=== PATIENT | female | born 1945 | race Caucasian/White ===

== ENCOUNTER 2018-01-19 00:31 | Emergency (ER) | payer OTHER, MEDICARE ==
[2018-01-19 01:01] VITALS: BP 110/56; PULSE 58; TEMP 98.3; BMI 31.4
[2018-01-19] MEDS ORDERED: FAMOTIDINE 20 MG/50 ML IVPB 20 MG/50 ML MG IVPB ONE ×2 (01:18→02:31)
[2018-01-19 01:45] LABS: URINE APPEARANCE CLEAR; URINE BILIRUBIN NEGATIVE (<2.0 mg/dL); URINE COLOR STRAW; URINE GLUCOSE (UA) NEGATIVE (NEGATIVE); URINE KETONE NEGATIVE (NEGATIVE); URINE LEUK ESTERASE NEGATIVE (NEGATIVE); URINE NITRITE NEGATIVE (NEGATIVE); URINE PROTEIN NEGATIVE (NEGATIVE); URINE UROBILINOGEN NEGATIVE mg/dL (0.2-1.0)
--- NOTE | 2018-01-19 02:16 | PDOC ---
History of Present Illness <Ayanna Fernández - Last Filed: 01/19/18 02:25> - History of Present Illness Initial Comments: 01/19/18 02:14 The patient is a 72 year old female with history of pancreatitis, DM, breast CA s/p mastectomy with mets to the lungs (treated in the past with chemo/radiation , now in remission), who presents to the ED complaining of left upper quadrant pain that began tonight. The patient describes her abdominal pain as radiating across the top of her abdomen and waxing and waning in nature. She is unsure whether it feels like her previous episode of pancreatitis. Denies alleviating or exacerbating factors. Denies nausea, vomiting, or diarrhea. Denies fever or chills. Denies chest pain or shortness of breath. <Hi Shay - Last Filed: 01/19/18 04:02> - General Chief Complaint: Pain Stated Complaint: ABD PAIN Time Seen by Provider: 01/19/18 01:07 Past History <Ayanna Fernández - Last Filed: 01/19/18 02:25> - Past Medical History Cancer: Yes (BREAST AND LUNG DX 2001) COPD: No - Immunization History Immunization Up to Date: No - Suicide/Smoking/Psychosocial Hx Smoking History: Never smoked Have you smoked in the past 12 months: No Hx Alcohol Use: No Drug/Substance Use Hx: No Substance Use Type: None Hx Substance Use Treatment: No <Hi Shay - Last Filed: 01/19/18 04:02> - Past Medical History Allergies/Adverse Reactions: Allergies Allergy/AdvReac Type Severity Reaction Status Date / Time No Known Allergies Allergy Verified 01/19/18 00:59 Home Medications: Ambulatory Orders NK [No Known Home Medication] 01/19/18 Review of Systems - Review of Systems Comments:: 01/19/18 02:14 "GENERAL/CONSTITUTIONAL: No fever or chills. No weakness. HEAD, EYES, EARS, NOSE AND THROAT: No change in vision. No ear pain or discharge. No sore throat. CARDIOVASCULAR: No chest pain or shortness of breath. RESPIRATORY: No cough, wheezing, or hemoptysis. GASTROINTESTINAL: +Upper abdominal pain. No nausea, vomiting, diarrhea or constipation. GENITOURINARY: No dysuria, frequency, or change in urination. MUSCULOSKELETAL: No joint or muscle swelling or pain. No neck or back pain. SKIN: No rash NEUROLOGIC: No headache, vertigo, loss of consciousness, or change in strength/ sensation. ENDOCRINE: No increased thirst. No abnormal weight change. HEMATOLOGIC/LYMPHATIC: No anemia, easy bleeding, or history of blood clots. ALLERGIC/IMMUNOLOGIC: No hives or skin allergy. " <Hi Shay - Last Filed: 01/19/18 04:02> *Physical Exam - Vital Signs Last Vital Signs Temp Pulse Resp BP Pulse Ox 98.3 F 58 L 18 110/56 97 01/19/18 00:57 01/19/18 00:57 01/19/18 00:57 01/19/18 00:57 01/19/18 00:57 <Ayanna Fernández - Last Filed: 01/19/18 02:25> - Vital Signs Last Vital Signs Temp Pulse Resp BP Pulse Ox 98.3 F 58 L 18 110/56 97 01/19/18 00:57 01/19/18 00:57 01/19/18 00:57 01/19/18 00:57 01/19/18 00:57 - Physical Exam Comments: 01/19/18 02:14 "GENERAL: Awake, alert, and fully oriented, in no acute distress. HEAD: No signs of trauma EYES: PERRLA, EOMI, sclera anicteric, conjunctiva clear ENT: Auricles normal inspection, hearing grossly normal, nares patent, oropharynx clear without exudates. Moist mucosa NECK: Nontender, no stepoffs, Normal ROM, supple, no lymphadenopathy, JVD, or masses LUNGS: Breath sounds equal, clear to auscultation bilaterally. No wheezes, and no crackles HEART: Regular rate and rhythm, normal S1 and S2, no murmurs, rubs or gallops ABDOMEN: +Epigastric and LUQ ttp. Soft, normoactive bowel sounds. No guarding, no rebound. No masses EXTREMITIES: Normal range of motion, no edema. No clubbing or cyanosis. No cords, erythema, or tenderness NEUROLOGICAL: Cranial nerves II through XII intact. 5/5 strength and sensation in all extremities, Normal speech, normal gait, normal cerebellar function SKIN: Warm, Dry, normal turgor, no rashes or lesions noted. " <Hi Shay - Last Filed: 01/19/18 04:02> Heart Score/ECG Review - History History: Slightly suspicious - Electrocardiogram EKG: Non specific repolarization disturbance - Age Age: >/= 65 - Risk Factors Based on the list above the patient has:: No risk factors known - Troponin Troponin: </= normal limit - Score Heart Score - Total: 3 - ECG Impressions Comment:: 01/19/18 02:15 NSR, no ANGELIKA/STDs, TWI in V2-V3, axis wnl, intervals wnl, rate 57 <OuHi - Last Filed: 01/19/18 04:02> ED Treatment Course - LABORATORY CBC & Chemistry Diagram: 01/19/18 02:06 01/19/18 02:06 - ADDITIONAL ORDERS Additional order review: Laboratory Results 01/19/18 01:38 Urine Color Straw Urine Appearance Clear Urine pH 5.0 Ur Specific [place] 1.009 Urine Protein Negative Urine Glucose (UA) Negative Urine Ketones Negative Urine Blood Negative Urine Nitrite Negative Urine Bilirubin Negative Urine Urobilinogen Negative Ur Leukocyte Esterase Negative 01/19/18 02:06 RBC 4.32 MCV 86.7 MCHC 33.3 RDW 14.6 MPV 9.0 Neutrophils % 72.3 D Lymphocytes % 22.2 D Monocytes % 4.4 Eosinophils % 0.7 Basophils % 0.4 <Ayanna Fernández - Last Filed: 01/19/18 02:25> - LABORATORY CBC & Chemistry Diagram: 01/19/18 02:06 01/19/18 02:06 - ADDITIONAL ORDERS Additional order review: Laboratory Results 01/19/18 01:38 Urine Color Straw Urine Appearance Clear Urine pH 5.0 Ur Specific [place] 1.009 Urine Protein Negative Urine Glucose (UA) Negative Urine Ketones Negative Urine Blood Negative Urine Nitrite Negative Urine Bilirubin Negative Urine Urobilinogen Negative Ur Leukocyte Esterase Negative - RADIOLOGY Radiology Studies Ordered: Category Date Time Status ABDOMEN US -LIMITED [US] Stat Ultrasound 01/19/18 01:18 Taken <OuHi - Last Filed: 01/19/18 04:02> Medical Decision Making - Medical Decision Making 01/19/18 02:25 EXAM: ULTRASOUND ABDOMEN INCOMPLETE Preliminary interpretation by Imaging Machine Fastener Small mobile gallstone and thickened gallbladder wall, 6 mm. No reported sonographic Silverio's sign and no pericholecystic fluid to suggest acute cholecystitis. Top normal gallbladder lumen size. Unremarkable liver, right kidney and visualized aorta and pancreas. Normal common duct diameter, 5 mm. Exam limited by body habitus. <Ayanna Fernández - Last Filed: 01/19/18 02:25> - Medical Decision Making 01/19/18 02:15 72 F with epigastric pain. Concerning for pancreatitis given prior h/o pancreatitis. Will also evaluate for gallbladder pathology as pt had imaging equivocal for cholecystitis on last admission. - Labs - RUQ sono 01/19/18 03:57 Labs wnl RUQ sono prelim read with small gallstone and gallbladder wall thickening. However, negative sonographic silverio's. Negative for acute cholecystitis. Pt also had negative silverio's on my exam. Unlikely to have biliary colic. Pt reassessed after pepcid, now reports complete resolution of her pain. Abdomen benign at this time. Pt is well appearing, with normal vitals. Clinically stable for DC at this time. I discussed the physical exam findings, ancillary test results and final diagnoses with the patient. I answered all of the patient's questions. The patient was satisfied with the care received and felt comfortable with the discharge plan and treatment plan. The patient agrees to follow up with the primary care physician within 24-72 hours. <Hi Shay - Last Filed: 01/19/18 04:02> *DC/Admit/Observation/Transfer - Attestations Scribe Attestion: 01/19/18 02:25 Documentation prepared by Ayanna Fernández, acting as medical observer for Hi Shay MD. <Ayanna Fernández - Last Filed: 01/19/18 02:25> - Attestations Physician Attestion: 01/19/18 04:02 I, Dr. Hi Shay MD, attest that this document has been prepared under my direction and personally reviewed by me in its entirety. I further attest, that it accurately reflects all work, treatment, procedures and medical decision -making performed by me. <Hi Shay - Last Filed: 01/19/18 04:02> Diagnosis at time of Disposition: Abdominal pain - Discharge Dispostion Disposition: HOME - Referrals Referrals: Fan Blum MD [Staff Physician] - - Patient Instructions Printed Discharge Instructions: DI for Gastritis Additional Instructions: Take nexium once daily as prescribed to treat your gastritis. If you experience worsening pain, vomiting, fevers, or any other concerning symptoms, return to the ER immediately. Otherwise, follow up with a trademark paralegal as soon as possible. You may need an endoscopy to further evaluate your abdominal pain.
[2018-01-19 02:18] LABS: BASO % 0.4 % (0-2.0); EOS % 0.7 % (0-4.5); HEMATOCRIT 37.4 % (32.4-45.2); HEMOGLOBIN 12.4 GM/dL (10.7-15.3); LYMPH % 22.2 % (8-40); MCH 28.8 pg (25.7-33.7); MCHC 33.3 g/dl (32.0-36.0); MEAN CELL VOLUME 86.7 fl (80-96); MONO % 4.4 % (3.8-10.2); NEUT % 72.3 % (42.8-82.8); PLATELET COUNT 250 K/MM3 (134-434); RBC 4.32 M/mm3 (3.60-5.2); RDW 14.6 % (11.6-15.6); WHITE BLOOD COUNT 8.8 K/mm3 (4.0-10.0)
[2018-01-19 02:40] LABS: INR 1.02 (0.82-1.09); PROTHROMBIN TIME (PATIENT) 11.5 SEC (9.7-13.0)
[2018-01-19 02:45] LABS: ALBUMIN 3.8 g/dl (3.4-5.0); ANION GAP 6 (8-16); BILIRUBIN,TOTAL 0.4 mg/dL (0.2-1.0); BLOOD UREA NITROGEN 11 mg/dL (7-18); CHLORIDE 101 mmol/L (98-107); CO2 30 mmol/L (21-32); CREATININE 0.6 mg/dL (0.55-1.02); GLUCOSE,RANDOM 112 mg/dL (74-106); LIPASE 135 U/L (73-393); POTASSIUM 4.4 mmol/L (3.5-5.1); SGOT/AST 25 U/L (15-37); SGPT/ALT 36 U/L (12-78); SODIUM 137 mmol/L (136-145); TOT PROT 7.5 g/dl (6.4-8.2)
[2018-01-19 02:46] LABS: ALK PHOS 76 U/L (45-117)
--- NOTE | 2018-01-19 13:26 | EKG ---
Test Reason : Blood Pressure : / mmHG Vent. Rate : 057 BPM Atrial Rate : 057 BPM P-R Int : 192 ms QRS Dur : 086 ms QT Int : 418 ms P-R-T Axes : 015 007 006 degrees QTc Int : 406 ms SINUS BRADYCARDIA MODERATE VOLTAGE CRITERIA FOR LVH, MAY BE NORMAL VARIANT BORDERLINE ECG WHEN COMPARED WITH ECG OF 21-NOV-2015 07:27, NO SIGNIFICANT CHANGE WAS FOUND Confirmed by MICHELLE DONG, LEANDRA ([id number]) on 01/19/2018 1:26:26 PM Referred By: Confirmed By:LEANDRA MARTINEZ MD
== END 2018-01-19 04:25 | disposition home or self-care (01) ==
LOC: JER 00:31
PROC: 3E033GC Introduction of Other Therapeutic Substance into Peripheral Vein, Percutaneous Approach (ICD-10-PCS; principal; 2018-01-19)
DX: K29.70 Gastritis, unspecified, without bleeding (principal); K80.20 Calculus of gallbladder without cholecystitis without obstruction; E11.9 Type 2 diabetes mellitus without complications; Z85.3 Personal history of malignant neoplasm of breast; Z85.118 Personal history of other malignant neoplasm of bronchus and lung; Z90.10 Acquired absence of unspecified breast and nipple
CPT/HCPCS: 36415; 76705-TC; 80053; 81003; 82550; 83690; 84484; 85025; 85610; 85730; 87086; 93005; 93010; 99281-25

== ENCOUNTER 2018-01-26 23:33 | Inpatient (IN) | payer OTHER, MEDICARE ==
[2018-01-27] MEDS ORDERED: morphine CARPU-JECT 2 MG/1 ML DISP.SYRIN IVPUSH ONE (00:47)
[2018-01-27] MEDS ORDERED: morphine CARPU-JECT 4 MG/1 ML DISP.SYRIN IVPUSH ONE ×2 (01:10→02:20)
[2018-01-27] MEDS ORDERED: FAMOTIDINE 20 MG/50 ML IVPB 20 MG/50 ML MG IVPB ONE ×2 (01:21→01:39)
[2018-01-27] MEDS ORDERED: SODIUM CHLORIDE 1,000 ML IV STA (01:21)
--- NOTE | 2018-01-27 01:25 | PDOC ---
Attending Attestation - Resident Resident Name: Shawn Bolivar - ED Attending Attestation I have performed the following: I have examined & evaluated the patient, The case was reviewed & discussed with the resident, I agree w/resident's findings & plan, Exceptions are as noted - HPI HPI: 01/27/18 01:23 72-year-old female patient with past medical history of breast cancer status post chemotherapy currently in remission with a right-sided chest port presents with recurrent upper abdominal pain starting several hours ago. Patient states that she is doing nothing particular when the pain was persistent particular right upper quadrant. Reported nausea vomiting but denies fevers. Decreased appetite. Denies diarrhea. Is unsure if she has a history of gallstones. - Physicial Exam PE: 01/27/18 01:24 GENERAL: Awake, alert, and fully oriented, uncomfortable appearing HEAD: No signs of trauma EYES: EOMI, sclera anicteric, conjunctiva clear ENT: Auricles normal inspection, hearing grossly normal, nares patent HEART: Regular rate and rhythm, normal S1 and S2, no murmurs, rubs or gallops ABDOMEN: Soft, edward sign positive. TTP epigastric, RUQ. EXTREMITIES: Normal range of motion, no edema. No clubbing or cyanosis. No cords, erythema, or tenderness NEUROLOGICAL: Cranial nerves II through XII grossly intact. Normal speech SKIN: Warm, Dry, normal turgor, no rashes or lesions noted. - Medical Decision Making 01/27/18 01:25 Vital Signs Temp Pulse Resp BP Pulse Ox 98.8 F 92 H 20 138/79 99 01/27/18 00:22 01/27/18 00:22 01/27/18 00:22 01/27/18 00:22 01/27/18 00:22 72 year old female patient with history of breast cancer presents with upper abdominal pain. Differential includes acute cholecystitis, biliary colic, pancreatitis versus gastritis. We'll obtain labs, ultrasound of the right upper quadrant, pain control. Dispo per examinations. 01/27/18 03:32 Ultrasound reviewed. Cholelithiasis. Gallbladder wall thickened at 7 mm. Positive edward sign. Acute cholecystitis. CBC, BMP 01/27/18 01:22 01/27/18 01:22 CMP Sodium 140 mmol/L (136-145) 01/27/18 01:22 Potassium 3.9 mmol/L (3.5-5.1) 01/27/18 01:22 Chloride 104 mmol/L (98-107) 01/27/18 01:22 Carbon Dioxide 29 mmol/L (21-32) 01/27/18 01:22 Anion Gap 7 (8-16) L 01/27/18 01:22 BUN 19 mg/dL (7-18) H 01/27/18 01:22 Creatinine 0.9 mg/dL (0.55-1.02) 01/27/18 01:22 Creat Clearance w eGFR > 60 (>60) 01/27/18 01:22 Random Glucose 148 mg/dL (74-106) H 01/27/18 01:22 Calcium 8.9 mg/dL (8.5-10.1) 01/27/18 01:22 Total Bilirubin 0.2 mg/dL (0.2-1.0) D 01/27/18 01:22 AST 13 U/L (15-37) L 01/27/18 01:22 ALT 30 U/L (12-78) 01/27/18 01:22 Alkaline Phosphatase 69 U/L (45-117) 01/27/18 01:22 Creatine Kinase 71 IU/L (26-192) 01/27/18 01:22 Troponin I < 0.02 ng/ml (0.00-0.05) 01/27/18 01:22 Total Protein 7.4 g/dl (6.4-8.2) 01/27/18 01:22 Albumin 3.7 g/dl (3.4-5.0) 01/27/18 01:22 Lipase 169 U/L (73-393) 01/27/18 01:22 IV antibiotics (zosyn). Surgical consult. Admit
[2018-01-27 01:34] LABS: BASO % 0.3 % (0-2.0); EOS % 0.4 % (0-4.5); HEMOGLOBIN 12.2 GM/dL (10.7-15.3); LYMPH % 14.5 % (8-40); MCH 28.9 pg (25.7-33.7); MCHC 33.1 g/dl (32.0-36.0); MEAN CELL VOLUME 87.5 fl (80-96); MEAN PLT VOLUME 9.4 fl (7.5-11.1); MONO % 3.8 % (3.8-10.2); PLATELET COUNT 240 K/MM3 (134-434); RBC 4.23 M/mm3 (3.60-5.2); RDW 15.1 % (11.6-15.6); WHITE BLOOD COUNT 10.7 K/mm3 (4.0-10.0)
[2018-01-27] MEDS ORDERED: morphine SULFATE 4 MG/ML VIAL ONE ×2 (01:39→02:36)
[2018-01-27 01:48] LABS: INR 0.97 (0.82-1.09)
[2018-01-27 01:50] LABS: ACTIVATED PTT 26.4 SECONDS (26.9-34.4)
[2018-01-27 01:57] LABS: ALBUMIN 3.7 g/dl (3.4-5.0); ANION GAP 7 (8-16); BLOOD UREA NITROGEN 19 mg/dL (7-18); CALCIUM 8.9 mg/dL (8.5-10.1); CHLORIDE 104 mmol/L (98-107); CO2 29 mmol/L (21-32); CREATININE 0.9 mg/dL (0.55-1.02); GLUCOSE,RANDOM 148 mg/dL (74-106); POTASSIUM 3.9 mmol/L (3.5-5.1); SGOT/AST 13 U/L (15-37); SGPT/ALT 30 U/L (12-78); SODIUM 140 mmol/L (136-145)
[2018-01-27 01:58] LABS: ALK PHOS 69 U/L (45-117); BILIRUBIN,TOTAL 0.2 mg/dL (0.2-1.0); TOT PROT 7.4 g/dl (6.4-8.2)
[2018-01-27] MEDS ORDERED: PIPERACILLIN/TAZOB 3.375 GM 3.375 GM in DEXTROSE 5%-WATER - 50 ML IVPB ONE ×3 (03:33→12:30)
[2018-01-27] MEDS ORDERED: ONDANSETRON 4 MG/2 ML VIAL IVPUSH ONE (03:56)
--- NOTE | 2018-01-27 03:57 | PDOC ---
History of Present Illness - General Chief Complaint: Pain Stated Complaint: ABD PAIN Time Seen by Provider: 01/27/18 00:39 History Source: Patient - History of Present Illness Initial Comments: 01/27/18 03:57 72F with pmh of breast cancer status post lung lobe resection chemotherapy currently in remission with a right-sided chest port presents with recurrent epigastric abdominal pain starting at 10pm this evening as well as repeated episodes of vomiting. Pain is not exacerbated by anything in particular. Reported nausea vomiting but denies fevers. Decreased appetite. Denies diarrhea. Past History - Past Medical History Allergies/Adverse Reactions: Allergies Allergy/AdvReac Type Severity Reaction Status Date / Time No Known Allergies Allergy Verified 01/27/18 00:33 Home Medications: Ambulatory Orders Esomeprazole Magnesium [Nexium 24Hr] 20 mg PO DAILY #30 capsule. 01/19/18 Cancer: Yes (BREAST AND LUNG DX 2001) COPD: No - Immunization History Immunization Up to Date: No - Suicide/Smoking/Psychosocial Hx Smoking History: Never smoked Have you smoked in the past 12 months: No Information on smoking cessation initiated: No Hx Alcohol Use: No Drug/Substance Use Hx: No Substance Use Type: None Hx Substance Use Treatment: No Review of Systems - Review of Systems Able to Perform ROS?: Yes Is the patient limited [place] proficient: No Constitutional: Yes: Diaphoresis HEENTM: No: Symptoms Reported Respiratory: No: Symptoms reported Cardiac (ROS): No: Symptoms Reported ABD/GI: No: Symptoms Reported : Yes: Symptoms Reported, See HPI Musculoskeletal: No: Symptoms Reported Integumentary: No: Symptoms Reported Neurological: No: Symptoms reported All Other Systems: Reviewed and Negative *Physical Exam - Vital Signs Last Vital Signs Temp Pulse Resp BP Pulse Ox 98.8 F 92 H 20 138/79 99 01/27/18 00:22 01/27/18 00:22 01/27/18 00:22 01/27/18 00:22 01/27/18 00:22 - Physical Exam General Appearance: Yes: Nourished, Appropriately Dressed. No: Apparent Distress HEENT: positive: EOMI, JACKELYN, Normal ENT Inspection Neck: negative: Tender Respiratory/Chest: positive: Lungs Clear, Normal Breath Sounds. negative: Chest Tender, Respiratory Distress Cardiovascular: positive: Regular Rhythm, S1, S2, Tachycardia Gastrointestinal/Abdominal: positive: Normal Bowel Sounds, Tender (epigastric), Other (positive Silverio's sign) Musculoskeletal: positive: Normal Inspection. negative: CVA Tenderness Extremity: positive: Normal Capillary Refill, Normal Inspection, Normal Range of Motion Integumentary: positive: Normal Color, Dry, Warm Neurologic: positive: Fully Oriented, Alert, Normal Mood/Affect ED Treatment Course - LABORATORY CBC & Chemistry Diagram: 01/27/18 01:22 01/27/18 01:22 - ADDITIONAL ORDERS Additional order review: Laboratory Results 01/27/18 01/27/18 01/27/18 01:22 01:22 01:22 PT with INR 11.00 INR 0.97 PTT (Actin FS) 26.4 L Sodium Potassium Chloride Carbon Dioxide Anion Gap BUN Creatinine Creat Clearance w eGFR Random Glucose Calcium Total Bilirubin AST ALT Alkaline Phosphatase Creatine Kinase 71 Troponin I < 0.02 Total Protein Albumin Lipase 169 01/27/18 01:22 PT with INR INR PTT (Actin FS) Sodium 140 Potassium 3.9 Chloride 104 Carbon Dioxide 29 Anion Gap 7 L BUN 19 H Creatinine 0.9 Creat Clearance w eGFR > 60 Random Glucose 148 H Calcium 8.9 Total Bilirubin 0.2 D AST 13 L ALT 30 Alkaline Phosphatase 69 Creatine Kinase Troponin I Total Protein 7.4 Albumin 3.7 Lipase 01/27/18 01:22 RBC 4.23 MCV 87.5 MCHC 33.1 RDW 15.1 MPV 9.4 Neutrophils % 81.0 Lymphocytes % 14.5 D Monocytes % 3.8 Eosinophils % 0.4 Basophils % 0.3 - RADIOLOGY Radiology Studies Ordered: Category Date Time Status GALLBLADDER US [US] Stat Ultrasound 01/27/18 00:46 Taken - Medications Given in the ED: ED Medications Discontinued Medications Generic Name Dose Route Start Last Admin Trade Name Freq PRN Reason Stop Dose Admin Famotidine/Sodium Chloride 20 mg in 50 mls @ 100 mls/hr 01/27/18 01:21 01:43 Pepcid 20 Mg Premixed Ivpb - IVPB 01/27/18 01:50 100 mls/hr ONCE ONE Administration Sodium Chloride 1,000 mls @ 1,000 mls/hr 01/27/18 01:21 01/27/18 01:43 Normal Saline - IV 01/27/18 02:20 1,000 mls/hr ASDIR STA Administration Morphine Sulfate 2 mg 01/27/18 00:47 06/08/18 01:30 Morphine Injection - IVPUSH 01/27/18 00:48 Not Given ONCE ONE Morphine Sulfate 4 mg 01/27/18 01:10 01/27/18 01:43 Morphine Injection - IVPUSH 01/27/18 01:11 4 mg ONCE ONE Administration Morphine Sulfate 4 mg 01/27/18 02:20 01/27/18 02:39 Morphine Injection - IVPUSH 01/27/18 02:21 4 mg ONCE ONE Administration Medical Decision Making - Medical Decision Making 01/27/18 04:14 72F with pmh presents epigastric pain. 01/27/18 04:14 Gallstones, vs cholecystitis vs ulcer vs [place] Bedside Ultrasound perfomed. Positive Silverio's and stone seen. Confirmed by official U/S Will start on antibiotics, fluids, pain control and admit. *DC/Admit/Observation/Transfer Diagnosis at time of Disposition: Cholecystitis - Discharge Dispostion Condition at time of disposition: Fair Decision to Admit order: Yes - Referrals - Patient Instructions - Post Discharge Activity
--- NOTE | 2018-01-27 04:10 | PN ---
Teaching Attending Note Name of Resident: Dylan Mann ATTENDING PHYSICIAN STATEMENT I saw and evaluated the patient. I reviewed the resident's note and discussed the case with the resident. I agree with the resident's findings and plan as documented. SUBJECTIVE: Patient is a 72 year old woman with past medical history of pancreatitis, gallstones, diet controlled DM, breast CA s/p mastectomy with mets to the lungs (was treated with chemo and radiotherapy, but now in remission), several lung surgeries, with a right-sided chest port presents with upper abdominal pain starting several hours ago. There was associated nausea and vomiting but no fever or chills. Patient was recently in the ER on 01/19/18 with similar complaint of upper abdominal pain that was attributed to pancreatitis. OBJECTIVE: Alert and in pain. No respiratory distress. Vital Signs Period Temp Pulse Resp BP Sys/[place] Pulse Ox Last 24 Hr 98.8 F 92 20 138/79 99 HEENT: No Jaundice, eye redness or discharge, PERRLA, EOMI. Normocephalic, atraumatic. External ears are normal and hearing is grossly intact. No nasal discharge. Neck: Supple, nontender. No palpable adenopathy or thyromegaly. No JVD Chest: Good effort. Clear to auscultation and percussion. Heart: Regular. No S3, rub or murmur Abdomen: Not distended, soft; tender epigastrium and RUQ, no HSM. No rebound or guarding. Normoactive bowel sounds. Ext: Peripheral pulses intact. No leg edema. Skin: Warm and dry. No petechiae, rash or ecchymosis. Neuro: Alert. Oriented x3. CN 2-12 grossly intact. Sensation grossly intact in all four extremities and DTR are symmetric. Home Medications Medication Instructions Recorded Esomeprazole Magnesium [Nexium 20 mg PO DAILY #30 capsule. 01/19/18 24Hr] Abnormal Lab Results 01/27/18 01/27/18 01/27/18 01:22 01:22 01:22 WBC 10.7 H PTT (Actin FS) 26.4 L Anion Gap 7 L BUN 19 H Random Glucose 148 H AST 13 L ASSESSMENT AND PLAN: 1. Cholecystitis and Cholelithiasis - Evident in her abdominal ultrasound. Will treat with Zosyn 3.375 gm IV q 8 hours, zofran 4 mg IV q4 hours, IV NS at 75 ml/ hour, use IV morphine for pain control and consult GI and surgery. Keep her NPO , get CXR and EKG. 2. Diet controlled DM - Do sliding scale insulin coverage. 3. DVT prophylaxis - SCD and Heparin 5000u sq tid 4. Advance directives - Full code
[2018-01-27] MEDS ORDERED: ONDANSETRON 4 MG/2 ML VIAL ONE ×2 (04:20→04:55)
[2018-01-27] MEDS ORDERED: PIPERACILLIN/TAZOB 3.375 GM 3.375 GM/50 ML BAG IVPB ONE (04:21)
[2018-01-27 04:59] LABS: URINE APPEARANCE CLEAR; URINE BILIRUBIN NEGATIVE (<2.0 mg/dL); URINE COLOR STRAW; URINE GLUCOSE (UA) NEGATIVE (NEGATIVE); URINE KETONE NEGATIVE (NEGATIVE); URINE NITRITE NEGATIVE (NEGATIVE); URINE PROTEIN NEGATIVE (NEGATIVE); URINE UROBILINOGEN NEGATIVE mg/dL (0.2-1.0)
[2018-01-27 05:00] LABS: URINE LEUK ESTERASE 1+ (NEGATIVE)
[2018-01-27] MEDS ORDERED: ACETAMINOPHEN 325 MG TABLET (FP) PO PRN (05:00)
[2018-01-27] MEDS ORDERED: morphine SULFATE 4 MG/ML VIAL IVPUSH PRN (05:00)
--- NOTE | 2018-01-27 05:00 | HP ---
CHIEF COMPLAINT: abdominal pain PCP: HISTORY OF PRESENT ILLNESS: 72F w/ hx of metastatic breast ca to lung (dx in 2008, s/p chemo, radiation, mastectomy in 2009 currently in remission) and DM who presents with abdominal pain since 10pm last night. Pt states that the pain is epigastric, radiates to RUQ and into chest, is 9/10 in severity, "ripping" in quality, and constant. She states that she had dinner at 8pm consisting of vegetables, rice, and watermelon. She took a tablet of magnesium without relief. Pt endorses nausea, NBNB emesis x 5 episodes, lightheadedness, and SOB. She denies fevers, chills, diarrhea, constipation, and dysuria. Of note, pt was hospitalized for gallstone sludge-induced pancreatitis and discharged on 11/21. She was instructed to follow up with a surgeon for possible cholecystectomy. In addition, pt presented to the hospital at end of december with similar abdominal pain, but the pain stopped, and she was discharged home. ER course was notable for: (1) history (2) exam (3) imaging Recent Travel: denies PAST MEDICAL HISTORY: as stated above PAST SURGICAL HISTORY: several lung surgeries for mets (2008) Social History: Smoking: denies Alcohol: denies Drugs: denies Family History: father- HTN, CT Allergies No Known Allergies Allergy (Verified 01/27/18 00:33) HOME MEDICATIONS: Home Medications Medication Instructions Recorded Esomeprazole Magnesium [Nexium 20 mg PO DAILY #30 capsule. 01/19/18 24Hr] REVIEW OF SYSTEMS CONSTITUTIONAL: Absent: fever, chills, diaphoresis, generalized weakness, malaise, loss of appetite, weight change HEENT: Absent: rhinorrhea, nasal congestion, throat pain, throat swelling, difficulty swallowing, mouth swelling, ear pain, eye pain, visual changes CARDIOVASCULAR: Absent: chest pain, syncope, palpitations, irregular heart rate, lightheadedness , peripheral edema RESPIRATORY: Absent: cough, dyspnea with exertion, orthopnea, wheezing, stridor, hemoptysis present: SOB GASTROINTESTINAL: Absent: abdominal distension, diarrhea, constipation, melena, hematochezia present: abdominal pain, n/v GENITOURINARY: Absent: dysuria, frequency, urgency, hesitancy, hematuria, flank pain, genital pain MUSCULOSKELETAL: Absent: myalgia, arthralgia, joint swelling, back pain, neck pain SKIN: Absent: rash, itching, pallor HEMATOLOGIC/IMMUNOLOGIC: Absent: easy bleeding, easy bruising, lymphadenopathy, frequent infections ENDOCRINE: Absent: unexplained weight gain, unexplained weight loss, heat intolerance, cold intolerance NEUROLOGIC: Absent: headache, focal weakness or paresthesias, dizziness, unsteady gait, seizure, mental status changes, bladder or bowel incontinence PSYCHIATRIC: Absent: anxiety, depression, suicidal or homicidal ideation, hallucinations. PHYSICAL EXAMINATION Vital Signs - 24 hr 01/27/18 00:22 Temperature 98.8 F Pulse Rate 92 H Respiratory 20 Rate Blood Pressure 138/79 O2 Sat by Pulse 99 Oximetry (%) GENERAL: elderly female, lying in bed, awake, alert, and fully oriented, in minimal acute distress. HEENT: NC, AT LUNGS: Breath sounds equal, clear to auscultation bilaterally. No wheezes, and no crackles. No accessory muscle use. HEART: Regular rate and rhythm, normal S1 and S2 without murmur, rub or gallop. ABDOMEN: several cm round scar in epigastric region, ND, soft, moderately tender in epigastric and RUQ region, normoactive BS MUSCULOSKELETAL: no pitting edema in LEs NEUROLOGICAL: Cranial nerves II-XII intact. Normal speech Laboratory Results - last 24 hr 01/27/18 01/27/18 01/27/18 01:22 01:22 01:22 WBC 10.7 H RBC 4.23 Hgb 12.2 Hct 37.0 MCV 87.5 MCH 28.9 MCHC 33.1 RDW 15.1 Plt Count 240 MPV 9.4 Absolute Neuts (auto) 8.7 Neutrophils % 81.0 Lymphocytes % 14.5 D Monocytes % 3.8 Eosinophils % 0.4 Basophils % 0.3 Nucleated RBC % 0 PT with INR INR PTT (Actin FS) Sodium 140 Potassium 3.9 Chloride 104 Carbon Dioxide 29 Anion Gap 7 L BUN 19 H Creatinine 0.9 Creat Clearance w eGFR > 60 Random Glucose 148 H Calcium 8.9 Total Bilirubin 0.2 D AST 13 L ALT 30 Alkaline Phosphatase 69 Creatine Kinase 71 Troponin I < 0.02 Total Protein 7.4 Albumin 3.7 Lipase 01/27/18 01/27/18 01:22 01:22 WBC RBC Hgb Hct MCV MCH MCHC RDW Plt Count MPV Absolute Neuts (auto) Neutrophils % Lymphocytes % Monocytes % Eosinophils % Basophils % Nucleated RBC % PT with INR 11.00 INR 0.97 PTT (Actin FS) 26.4 L Sodium Potassium Chloride Carbon Dioxide Anion Gap BUN Creatinine Creat Clearance w eGFR Random Glucose Calcium Total Bilirubin AST ALT Alkaline Phosphatase Creatine Kinase Troponin I Total Protein Albumin Lipase 169 RUQ US: cholelithiasis, thickened gallbladder at 7mm, + edward sign ASSESSMENT/PLAN: 72F w/ hx of metastatic breast ca to lung (dx in 2007, s/p chemo, radiation, mastectomy in 2008 currently in remission) and DM who presents with epigastric/ RUQ abdominal pain since 10pm last night. #abdominal pain -likely 2/2 cholecystitis -RUQ US: cholelithiasis, thickened gallbladder at 7mm, + edward sign -afebrile, no leukocytosis -surgery consulted, Dr. Parker, f/u recs -GI consulted, Dr. Smalls, f/u recs -NPO -zosyn 3.375mg -pain control with morphine and APAP PRN -NS @ 50cc/hr #DM -BGM ACHS, ISS #metastatic breast cancer in remission -not active issue -last oncology appointment was in march of 2017. follows at [facility] #FEN/ppx -NS @ 50 -electrolytes wnl -NPO -no GI ppx indicated -heparin held for possible surgery Case discussed with attending, Dr. Oneil. -Dylan aMnn MD PGY1 Visit type - Emergency Visit Emergency Visit: Yes ED Registration Date: 01/27/18 Care time: The patient presented to the Emergency Department on the above date and was hospitalized for further evaluation of their emergent condition. - New Patient This patient is new to me today: Yes Date on this admission: 01/27/18 - Critical Care Critical Care patient: No Hospitalist Screening - Colonoscopy Questionnaire Colonoscopy Questionnaire: Colonoscopy Questionnaire - Patient: 50 - 75 years old and never had a screening colonoscopy: Unknown History of colon or rectal polyps, or CA: Unknown History of IBD, Crohn's disease or UC: Unknown History of abdominal radiation therapy as a child: Unknown - Relative: 1 with colon or rectal CA, or polyps at age 60 or younger: Unknown Colon or rectal CA diagnosed at age 45 or younger: Unknown Multiple relatives with colon or rectal CA: Unknown - Outcome: Screening Result: Negative Screen
[2018-01-27] MEDS ORDERED: PROMETHAZINE HCL 25 MG/1 ML VIAL IVPUSH PRN (05:07)
[2018-01-27] MEDS: SODIUM CHLORIDE 1,000 ML IV SCH (05:09)
[2018-01-27 05:13] LABS: EPI CELLS RARE /HPF (FEW); URINE BACTERIA RARE /hpf (NONE SEEN); URINE MUCUS RARE
[2018-01-27 08:08] LABS: BASO % 0.1 % (0-2.0); EOS % 0.1 % (0-4.5); HEMATOCRIT 35.6 % (32.4-45.2); HEMOGLOBIN 11.8 GM/dL (10.7-15.3); LYMPH % 16.2 % (8-40); MCH 28.8 pg (25.7-33.7); MEAN CELL VOLUME 87.3 fl (80-96); MEAN PLT VOLUME 9.2 fl (7.5-11.1); MONO % 5.4 % (3.8-10.2); NEUT % 78.2 % (42.8-82.8); PLATELET COUNT 226 K/MM3 (134-434); RBC 4.08 M/mm3 (3.60-5.2); RDW 14.6 % (11.6-15.6); WHITE BLOOD COUNT 9.7 K/mm3 (4.0-10.0)
[2018-01-27 08:19] VITALS: BMI 30.9
[2018-01-27 08:40] LABS: ALBUMIN 3.5 g/dl (3.4-5.0); ANION GAP 5 (8-16); BILIRUBIN,TOTAL 0.3 mg/dL (0.2-1.0); BLOOD UREA NITROGEN 15 mg/dL (7-18); CALCIUM 8.6 mg/dL (8.5-10.1); CHLORIDE 104 mmol/L (98-107); CO2 29 mmol/L (21-32); CREATININE 0.5 mg/dL (0.55-1.02); GLUCOSE,RANDOM 120 mg/dL (74-106); POTASSIUM 4.4 mmol/L (3.5-5.1); SGOT/AST 19 U/L (15-37); SGPT/ALT 31 U/L (12-78); SODIUM 138 mmol/L (136-145)
[2018-01-27 08:41] LABS: ALK PHOS 65 U/L (45-117)
--- NOTE | 2018-01-27 08:45 | CONSULT ---
Consult - text type - Consultation Consultation Note: General Surgery Patient is not a candidate for a surgical procedure. Consider IR for cholecystostomy placement. full consult to follow. Thank you for the opportunity to participate in the care of this patient.
--- NOTE | 2018-01-27 10:16 | EKG ---
Test Reason : Blood Pressure : / mmHG Vent. Rate : 060 BPM Atrial Rate : 060 BPM P-R Int : 204 ms QRS Dur : 090 ms QT Int : 416 ms P-R-T Axes : 042 015 016 degrees QTc Int : 416 ms NORMAL SINUS RHYTHM MINIMAL VOLTAGE CRITERIA FOR LVH, MAY BE NORMAL VARIANT WHEN COMPARED WITH ECG OF 19-JAN-2018 01:56, NONSPECIFIC T WAVE ABNORMALITY NO LONGER EVIDENT IN ANTERIOR LEADS Confirmed by JAMES DONG, FLORINA ([id number]) on 01/27/2018 10:16:15 AM Referred By: Confirmed By:FLORINA RAMIREZ MD
--- NOTE | 2018-01-27 10:57 | CON.GI ---
Consult Consult Specialty:: Gastroenterology Referred by:: Dr. Albarran Reason for Consultation:: Possible Cholecystitis - History of Present Illness Chief Complaint: Abdominal Pain History of Present Illness: Patient is a 72 year old female with a PMHx of NIDDMII on no medication, metastatic breast cancer (diagnosed in 2007 s/p mastectomy, chemo, and radiation in 2008 and now in remission) who presented for diffuse epigastric abdominal pain. Patient was in her normal state of health when she suddenly developed abdominal pain that was sharp in nature and constant associated with nausea and nonbloody nonbilious vomiting x5. She reports no alleviating or exacerbating factors with a severity of 9/10. She reports taking anti-acid medication but with no relief of symptoms. Patient states she had dinner last night but denies any greasy or fatty intake. Patient currently denies any abdominal pain since her admission last night. Patient has history of gallstone pancreatitis 11/2015 but was discharged without cholecystectomy. Patient also had an ED visit to last week (01/19/19) for abdominal pain but U/S revealed no acute cholecystitis. Otherwise, patient denies fever, chills, chest pain, palpitations, shortness of breath, headaches, dysuria, frequency, urgency Patient denies any joint pain, rash, jaundice, history of transfusion, history of IV drug use, autoimmune disease, hematuria, hematochezia, melena, hematemesis , diarrhea, constipation, bowel changes, change in diet, weight loss. Patient does report having an EGD and colonscopy done but does not remember when - History Source History Provided By: Patient Limitations to Obtaining History: No Limitations - Past Medical History Heme/Onc: Yes: Cancer (breast cancer in remission), Other (history of chemotherapy and radiation ) Endocrine: Yes: Diabetes Mellitus (controlled with diet ) - Past Surgical History Past Surgical History: Yes: Mastectomy - Alcohol/Substance Use Hx Alcohol Use: No History of Substance Use: reports: None - Smoking History Smoking history: Never smoked Have you smoked in the past 12 months: No - Social History Usual Living Arrangement: With Child History of Recent Travel: No <Erna Angel - Last Filed: 01/27/18 14:03> Home Medications <Erna Angel - Last Filed: 01/27/18 14:03> <Yung Smalls - Last Filed: 01/27/18 14:41> - Allergies Allergies/Adverse Reactions: Allergies Allergy/AdvReac Type Severity Reaction Status Date / Time No Known Allergies Allergy Verified 01/27/18 00:33 - Home Medications Home Medications: Ambulatory Orders Esomeprazole Magnesium [Nexium 24Hr] 20 mg PO DAILY #30 capsule. 01/19/18 Family Disease History - Family Disease History Family Disease History: Diabetes: Father, Mother, Heart Disease: Father, Mother <Erna Angel - Last Filed: 01/27/18 14:03> - Family Disease History Family History: Unremarkable <Yung Smalls - Last Filed: 01/27/18 14:41> Review of Systems - Review of Systems Constitutional: reports: No Symptoms. denies: Chills, Diaphoresis, Fever, Loss of Appetite Eyes: reports: No Symptoms. denies: Blurred Vision, Photophobia HENT: reports: No Symptoms. denies: Difficult Swallowing, Ear Discharge, Mouth Swelling, Nasal Congestion, Ringing in Ears Neck: reports: No Symptoms. denies: Decreased ROM, Pain on Movement, Stiffness , Tenderness Cardiovascular: reports: No Symptoms. denies: Chest Pain, Edema, Palpitations, Shortness of Breath Respiratory: reports: No Symptoms. denies: Cough, SOB, SOB on Exertion, Wheezing Gastrointestinal: reports: Abdominal Pain (epigastric), Nausea, Vomiting. denies: Constipation, Diarrhea, Dysphagia, Melena, Rectal Bleeding, Vomiting Blood Genitourinary: reports: No Symptoms. denies: Burning, Discharge, Dysuria, Pain Breasts: reports: See HPI Musculoskeletal: reports: No Symptoms. denies: Decreased ROM, Muscle Weakness Neurological: reports: No Symptoms. denies: Confusion, Dizziness, Numbness Endocrine: reports: No Symptoms. denies: Excessive Sweating, Flushing, Intolerance to Cold, Intolerance to Heat Hematology/Lymphatic: denies: Easily Bruised Psychiatric: reports: No Symptoms. denies: Anxiety, Depression <Erna Angel - Last Filed: 01/27/18 14:03> Findings/Remarks: As per H&P and HPI <Yung Smalls - Last Filed: 01/27/18 14:41> Physical Exam-GI Vital Signs: Vital Signs Temperature 97.6 F 01/27/18 08:09 Pulse Rate 72 01/27/18 08:09 Respiratory Rate 18 06/08/18 08:09 Blood Pressure 126/59 01/27/18 08:09 O2 Sat by Pulse Oximetry (%) 98 01/27/18 08:47 Constitutional: Yes: Well Nourished, No Distress, Calm. No: Mild Distress, Pallor, Poor Hygeine Eyes: Yes: WNL, Conjunctiva Clear. No: Sclera Icterus HENT: Yes: WNL, Atraumatic, Normocephalic. No: Hoarseness Neck: Yes: WNL, Supple, Trachea Midline. No: Decreased ROM, Lymphadenopathy Cardiovascular: Yes: WNL, Regular Rate and Rhythm. No: Bradycardia, Tachycardia , Pulse Irregular, Bruit Respiratory: Yes: WNL, Regular, CTA Bilaterally. No: Accessory Muscle Use, Cough, Rales, Rhonchi, SOB, Wheezes Gastrointestinal Inspection: Yes: Scars (3X3cm scar in the left epigastric region) ...Auscultate: Yes: Normoactive Bowel Sounds ...Palpate: Yes: Soft. No: Firm/Rigid, Guarding, Hepatomegaly, Mass, Tenderness , Epigastium ...Percussion: No: Fluid Wave Genitourinary: No: Bladder Distention, CVA Tenderness - Left, CVA Tenderness - Right Musculoskeletal: Yes: WNL. No: Back Pain, Joint Stiffness Extremities: Yes: WNL. No: Calf Tenderness, Erythema Edema: No Neurological: Yes: WNL, Alert, Oriented. No: Confusion, Numbness Psychiatric: Yes: WNL, Alert, Oriented Labs: CBC, BMP 01/27/18 07:50 01/27/18 07:50 INR, PTT INR 0.97 (0.82-1.09) 01/27/18 01:22 <Erna Angel - Last Filed: 01/27/18 14:03> Vital Signs: Vital Signs Temperature 97.9 F 01/27/18 09:00 Pulse Rate 76 01/27/18 09:00 Respiratory Rate 01/27/18 09:00 Blood Pressure 120/60 01/27/18 09:00 O2 Sat by Pulse Oximetry (%) 98 01/27/18 09:00 Labs: CBC, BMP 01/27/18 07:50 01/27/18 07:50 INR, PTT INR 0.97 (0.82-1.09) 01/27/18 01:22 <SlimYung - Last Filed: 01/27/18 14:41> Imaging - Results Ultrasound: Report Reviewed Other: Report Reviewed (HIDA SCAN) <Erna Angel - Last Filed: 01/27/18 14:03> Assessment/Plan Abdominal Pain -Patient had U/S done that revealed possible acute cholecystitis with gallbladder thickening, (+) sonographic edward's sign, and cholelithiasis as well as a history of Gallstone Pancreatitis in 2016 and was discharged home without surgical intervention. However, patient is complaining of epigastric tenderness with no murphys's sign or RUQ pain and does have a history of metastatic breast cancer, therefore, she will need images to rule out any malignancies due to history of malignancy. HIDA scan completed and revealed no acute cystic duct obstruction. CT Abdomen ordered to rule out any metastasis or malignancy. Patient will need cholecystectomy by surgery before discharge. <Socorro Angeleen - Last Filed: 01/27/18 14:03> The patient was interviewed and examined. Agree with the above assessment. 3 gallstone-related hospital visits in the last 2 years. Presents with what appears to be biliary colic/cholecystitis. Asymptomatic at the time of this encounter. Does not appear toxic, or in distress. Benign physical exam. Given the recurrent symptoms and acute gallstone pancreatitis 2 years ago, cholecystectomy is recommended. We will ask surgery to evaluate. Upper GI inflammatory states such as ulcer. Close monitoring. CBC, liver chemistry daily. Obtain lipase. Discussed with the patient, who agrees with the plan. <Yung Smalls - Last Filed: 01/27/18 14:41>
--- NOTE | 2018-01-27 12:13 | CON.ID ---
Consult Consult Specialty:: infectious diseases Referred by:: Reason for Consultation:: choleycystitis - History of Present Illness Chief Complaint: abd pain History of Present Illness: 72F w/ hx of metastatic breast ca to lung now in remission and DM who admitted with abdominal pain since 10pm last night. According to the patient the pain is mainly epigastric with nausea .She mentions that she had eaten spicy food and after that she had pain. Pt states that the pain is epigastric, radiates to RUQ and into chest, is 9/10 in severity, "ripping" in quality, and constant. She states that she had dinner at 8pm consisting of vegetables, rice, and watermelon. She took a tablet of magnesium without relief. Pt endorses nausea, NBNB emesis x 5 episodes, lightheadedness, and SOB. She denies fevers, chills, diarrhea, constipation, and dysuria. patient was admitted and worked up and found to have murphys positive on admission though currently she is completely asymptomatic and also her hida scan is negative as well as u/s is not that significant patient also had come to the hospital before also couple of days back with the same complaint - History Source History Provided By: Patient, Family Member Limitations to Obtaining History: No Limitations - Past Surgical History Past Surgical History: Yes: Mastectomy - Alcohol/Substance Use Hx Alcohol Use: No - Smoking History Smoking history: Never smoked Have you smoked in the past 12 months: No Home Medications - Allergies Allergies/Adverse Reactions: Allergies Allergy/AdvReac Type Severity Reaction Status Date / Time No Known Allergies Allergy Verified 01/27/18 00:33 - Home Medications Home Medications: Ambulatory Orders Esomeprazole Magnesium [Nexium 24Hr] 20 mg PO DAILY #30 capsule. 01/19/18 Review of Systems - Review of Systems Constitutional: reports: No Symptoms Eyes: reports: No Symptoms HENT: reports: No Symptoms Neck: reports: No Symptoms Cardiovascular: reports: No Symptoms Respiratory: reports: No Symptoms Gastrointestinal: reports: Abdominal Pain, Nausea, Vomiting Genitourinary: reports: No Symptoms Musculoskeletal: reports: No Symptoms Integumentary: reports: No Symptoms Neurological: reports: No Symptoms Endocrine: reports: No Symptoms Hematology/Lymphatic: reports: No Symptoms Psychiatric: reports: No Symptoms Physical Exam Vital Signs: Vital Signs Temperature 97.9 F 01/27/18 09:00 Pulse Rate 76 01/27/18 09:00 Respiratory Rate 18 01/27/18 09:00 Blood Pressure 120/60 01/27/18 09:00 O2 Sat by Pulse Oximetry (%) 98 01/27/18 09:00 Constitutional: Yes: Well Nourished, No Distress, Calm Eyes: Yes: Conjunctiva Clear HENT: Yes: Atraumatic Neck: Yes: Supple, Trachea Midline Cardiovascular: Yes: Regular Rate and Rhythm Respiratory: Yes: Regular, CTA Bilaterally Gastrointestinal: Yes: Normal Bowel Sounds, Soft Musculoskeletal: Yes: WNL Extremities: Yes: WNL Neurological: Yes: Alert, Oriented Psychiatric: Yes: Alert, Oriented Labs: CBC, BMP 01/27/18 07:50 01/27/18 07:50 Imaging - Results Chest X-ray: Report Reviewed, Image Reviewed Ultrasound: Report Reviewed, Image Reviewed Other: Report Reviewed, Image Reviewed Assessment/Plan Problem List - Problems (1) Cholecystitis, unspecified Code(s): K81.9 - CHOLECYSTITIS, UNSPECIFIED (2) Abdominal pain in female patient Code(s): R10.9 - UNSPECIFIED ABDOMINAL PAIN (3) Acute gallstone pancreatitis Code(s): K85.1 - BILIARY ACUTE PANCREATITIS * DO NOT USE * (4) Borderline type 2 diabetes mellitus Code(s): R73.09 - OTHER ABNORMAL GLUCOSE (5) History of breast cancer Code(s): Z85.3 - PERSONAL HISTORY OF MALIGNANT NEOPLASM OF BREAST after looking at the history and her previous h/o of pancreatitis in 2016 and also patient with gall stones i think we should continue empiric abx get a ct of the abd as she had a severe pain in the epigastric region and with her history if there is any other pathology gi on the case if everything is normal then choleycystctomy as patient has chance of redeveloping symptoms as she has stones in the gall bladder
[2018-01-27] MEDS: INSULIN SLIDING SCALE (NOVOLOG) 1 VIAL SQ SCH ×4 (12:36→21:13)
--- NOTE | 2018-01-27 13:15 | CONSULT ---
Consult Consult Specialty:: General Surgery Referred by:: Evaristo Albarran MD Reason for Consultation:: chronic cholecystitis - History of Present Illness Chief Complaint: Abdominal pain History of Present Illness: 72 yo PMH breast cancer metastatic to lung (dx in 2007, s/p chemo, radiation, mastectomy in 2008 currently in remission), constipation, DM on insulin, recent gallstone pancreatitis, presents with abdominal pain since 10pm last night. She states that the pain is epigastric, radiates to RUQ and into chest, is 9/10 in severity, "ripping" in quality, and constant. She states that she had dinner at 8pm consisting of vegetables, rice, and watermelon (cooked in oil). She took a tablet of magnesium without relief, subsided after being given pain medication in the ED. Associated with nausea, NBNB emesis x 5 episodes, lightheadedness, and SOB. She denies fevers, chills, diarrhea, constipation, and dysuria. She was hospitalized for gallstone sludge-induced pancreatitis and discharged on 11/21. She was instructed to follow up with a surgeon for elective cholecystectomy but did not. Denies previous abdominal surgery. We were asked to assess. - History Source History Provided By: Patient, Medical Record Limitations to Obtaining History: No Limitations - Past Medical History Pulmonary: Yes: Cancer (mets from breast) Gastrointestinal: Yes: Constipation, Pancreatitis (gallstone pancreatitis ), Other (Fatty liver) Heme/Onc: No: Current Chemotherapy Endocrine: Yes: Diabetes Mellitus Additional Medical History: Breast Cancer 2007 metastatic to lung - Past Surgical History Past Surgical History: Yes: Mastectomy (2008) - Alcohol/Substance Use Hx Alcohol Use: No History of Substance Use: reports: None - Smoking History Smoking history: Never smoked Have you smoked in the past 12 months: No - Social History ADL: Independent Occupation: travel pt History of Recent Travel: No Home Medications - Allergies Allergies/Adverse Reactions: Allergies Allergy/AdvReac Type Severity Reaction Status Date / Time No Known Allergies Allergy Verified 01/27/18 00:33 - Home Medications Home Medications: Ambulatory Orders Esomeprazole Magnesium [Nexium 24Hr] 20 mg PO DAILY #30 capsule. 01/19/18 Review of Systems - Review of Systems Constitutional: denies: Chills, Fever Eyes: denies: Blurred Vision, Recent Change in Vision HENT: denies: Difficult Swallowing, Throat Pain Neck: denies: Swollen Glands, Tenderness Cardiovascular: denies: Chest Pain, Palpitations Respiratory: denies: Cough, SOB Gastrointestinal: reports: Abdominal Pain, Indigestion, Nausea, Vomiting Genitourinary: denies: Discharge, Dysuria Breasts: reports: Other (Cancer) Musculoskeletal: denies: Muscle Pain, Muscle Weakness Integumentary: denies: Lesions, Rash Neurological: denies: Seizure, Syncope Endocrine: denies: Unexplained Weight Gain, Unexplained Weight Loss Hematology/Lymphatic: denies: Easily Bruised, Excessive Bleeding Psychiatric: denies: Anxiety, Depression Physical Exam Vital Signs: Vital Signs Temperature 97.9 F 01/27/18 09:00 Pulse Rate 76 01/27/18 09:00 Respiratory Rate 18 01/27/18 09:00 Blood Pressure 120/60 01/27/18 09:00 O2 Sat by Pulse Oximetry (%) 98 01/27/18 09:00 Vital Signs Period Temp Pulse Resp BP Sys/Hemphill Pulse Ox Last 24 Hr 97.6 F-98.8 F 62-92 15-20 120-138/59-79 93-99 Constitutional: Yes: No Distress, Calm, Obese Eyes: Yes: Conjunctiva Clear, EOM Intact HENT: Yes: Atraumatic, Normocephalic Neck: Yes: Supple, Trachea Midline Cardiovascular: Yes: Regular Rate and Rhythm, S1, S2 Respiratory: Yes: Regular, CTA Bilaterally Gastrointestinal: Yes: Normal Bowel Sounds, Soft, Abdomen, Obese. No: Ascites, Distention, Tenderness, Tenderness, Epigastrium, Tenderness, Rebound ...Rectal Exam: Yes: Sphincter Tone Normal. No: Hemorrhoids/External, Mass Renal/: No: CVA Tenderness - Left, CVA Tenderness - Right Musculoskeletal: No: Muscle Pain, Muscle Weakness Extremities: No: Cool, Cyanosis Edema: No Peripheral Pulses WNL: Yes Integumentary: No: Jaundice, Rash Labs: CBC, BMP 01/27/18 07:50 01/27/18 07:50 INR, PTT INR 0.97 (0.82-1.09) 01/27/18 01:22 CBC,CMP WBC 9.7 K/mm3 (4.0-10.0) 01/27/18 07:50 RBC 4.08 M/mm3 (3.60-5.2) 01/27/18 07:50 Hgb 11.8 GM/dL (10.7-15.3) 01/27/18 07:50 Hct 35.6 % (32.4-45.2) 01/27/18 07:50 MCV 87.3 fl (80-96) 01/27/18 07:50 MCH 28.8 pg (25.7-33.7) 01/27/18 07:50 MCHC 33.0 g/dl (32.0-36.0) 01/27/18 07:50 RDW 14.6 % (11.6-15.6) 01/27/18 07:50 Plt Count 226 K/MM3 (134-434) 01/27/18 07:50 MPV 9.2 fl (7.5-11.1) 01/27/18 07:50 Absolute Neuts (auto) 7.6 # 01/27/18 07:50 Neutrophils % 78.2 % (42.8-82.8) 01/27/18 07:50 Lymphocytes % 16.2 % (8-40) 01/27/18 07:50 Monocytes % 5.4 % (3.8-10.2) 01/27/18 07:50 Eosinophils % 0.1 % (0-4.5) 01/27/18 07:50 Basophils % 0.1 % (0-2.0) 01/27/18 07:50 Nucleated RBC % 0 % (0-0) 01/27/18 07:50 Sodium 138 mmol/L (136-145) 01/27/18 07:50 Potassium 4.4 mmol/L (3.5-5.1) 01/27/18 07:50 Chloride 104 mmol/L (98-107) 01/27/18 07:50 Carbon Dioxide 29 mmol/L (21-32) 01/27/18 07:50 Anion Gap 5 (8-16) L 01/27/18 07:50 BUN 15 mg/dL (7-18) 01/27/18 07:50 Creatinine 0.5 mg/dL (0.55-1.02) L 01/27/18 07:50 Creat Clearance w eGFR > 60 (>60) 01/27/18 07:50 POC Glucometer 79 UNITS (80-120) 01/27/18 12:40 Random Glucose 120 mg/dL (74-106) H 01/27/18 07:50 Calcium 8.6 mg/dL (8.5-10.1) 01/27/18 07:50 Total Bilirubin 0.3 mg/dL (0.2-1.0) D 01/27/18 07:50 AST 19 U/L (15-37) 01/27/18 07:50 ALT 31 U/L (12-78) 01/27/18 07:50 Alkaline Phosphatase 65 U/L (45-117) 01/27/18 07:50 Creatine Kinase 71 IU/L (26-192) 01/27/18 01:22 Troponin I < 0.02 ng/ml (0.00-0.05) 01/27/18 01:22 Total Protein 7.0 g/dl (6.4-8.2) 01/27/18 07:50 Albumin 3.5 g/dl (3.4-5.0) 01/27/18 07:50 Lipase 169 U/L (73-393) 01/27/18 01:22 Imaging - Results Chest X-ray: Report Reviewed, Image Reviewed Cat Scan: Pending Ultrasound: Report Reviewed (mild GB wall thickening, sludge/ small stones?, + sonographic edward's sign), Image Reviewed Other: Report Reviewed, Image Reviewed (HIDA negative - no cystic duct obstruction) Problem List - Problems (1) Cholecystitis, unspecified Assessment/Plan: 72yo female PMH DM metastatic breast CA (to lung) in remission, presenting with RUQ abdominal pain, history of gallstone pancreatitis with a plan for surgery but she did not followup. Chronic cholecystitis vs. biliary colic, mild WBC immediately resolved to normal this morning 9.7, no significant derangement of liver enzymes. Agree with plan for CT scan of Abdomen/ Pelvis. Suggestive sonographic findings GB wall thickening, sludge and +sono edward's, negative HIDA. Abdominal pain also mostly resolved. Discussed findings with patient and family will obtain formal consent over the weekend. NPO and IVF hydration - clears/ ice chips if she remains pain free consider empiric IV antibiotics ID and GI evaluations are pending Medical/ Cardiology risk stratification Adequate analgesia GI and DVT prophylaxis tentatively scheduled for surgery Tuesday at 12 noon Will follow Thank you for the opportunity to participate in the care of this patient. Code(s): K81.9 - CHOLECYSTITIS, UNSPECIFIED (2) Abdominal pain in female patient Code(s): R10.9 - UNSPECIFIED ABDOMINAL PAIN (3) Acute gallstone pancreatitis Code(s): K85.1 - BILIARY ACUTE PANCREATITIS * DO NOT USE * (4) Borderline type 2 diabetes mellitus Code(s): R73.09 - OTHER ABNORMAL GLUCOSE (5) History of breast cancer Code(s): Z85.3 - PERSONAL HISTORY OF MALIGNANT NEOPLASM OF BREAST
[2018-01-27] MEDS ORDERED: DEXTROSE 5%-WATER - 50 ML IVPB ONE ×3 (13:25→23:10)
[2018-01-27] MEDS ORDERED: PIPERACILLIN/TAZOBACTAM 3.375 GM VIAL IVPB ONE ×3 (13:25→23:10)
[2018-01-27] MEDS: POLYETHYLENE GLYCOL 3350 119 GM BTL PO SCH ×2 (13:44→21:14)
--- NOTE | 2018-01-27 15:46 | PN ---
Physical Exam: SUBJECTIVE: Patient seen and examined. No fevers or chills overnight, no abdominal pain. Had one episode of NBNB vomit this am. OBJECTIVE: Vital Signs Period Temp Pulse Resp BP Sys/Hemphill Pulse Ox Last 24 Hr 97.6 F-98.8 F 62-92 15-20 120-138/59-79 93-99 Vital Signs Temp 98.4 F 01/27/18 17:33 Pulse 56 L 01/27/18 17:33 Resp 18 01/27/18 17:33 BP 134/67 01/27/18 17:33 Pulse Ox 98 01/27/18 09:00 Intake & Output 01/26/18 01/27/18 01/27/18 23:59 11:59 23:59 Intake Total 0 950 Balance 0 950 Weight 84.232 kg Intake: IV 600 Normal Saline - 1,000 ml 600 @ 50 mls/hr IV ASDIR JEREMIAS Rx#:[id number] IVPB 50 Oral 0 300 Other: Voiding Method Toilet Height 1.65 m Body Mass Index (BMI) 30.9 Weight Measurement Method Built in [facility] Weight Measurement Method Est/Stated by Patient Intake & Output 01/24/18 01/25/18 01/26/18 01/27/18 23:59 23:59 23:59 23:59 Intake Total 950 Balance 950 Weight 84.232 kg GENERAL: The patient is awake, alert, and fully oriented, in no acute painful distress. LUNGS: Breath sounds equal, clear to auscultation bilaterally HEART: Regular rate and rhythm, S1, S2 without murmur ABDOMEN: Soft, non tender, nondistended, normoactive bowel sounds, absent murphys sign EXTREMITIES: 2+ pulses, warm, well-perfused, no edema. NEUROLOGICAL: AAOx3, no lateralizing signs, no facila droop. Normal gait. SKIN: Absent R breast CBC, BMP 01/27/18 07:50 01/27/18 07:50 Laboratory Results - last 24 hr 01/27/18 01/27/18 01/27/18 01:22 01:22 01:22 WBC 10.7 H RBC 4.23 Hgb 12.2 Hct 37.0 MCV 87.5 MCH 28.9 MCHC 33.1 RDW 15.1 Plt Count 240 MPV 9.4 Absolute Neuts (auto) 8.7 Neutrophils % 81.0 Lymphocytes % 14.5 D Monocytes % 3.8 Eosinophils % 0.4 Basophils % 0.3 Nucleated RBC % 0 PT with INR INR PTT (Actin FS) Sodium 140 Potassium 3.9 Chloride 104 Carbon Dioxide 29 Anion Gap 7 L BUN 19 H Creatinine 0.9 Creat Clearance w eGFR > 60 POC Glucometer Random Glucose 148 H Calcium 8.9 Total Bilirubin 0.2 D AST 13 L ALT 30 Alkaline Phosphatase 69 Creatine Kinase 71 Troponin I < 0.02 Total Protein 7.4 Albumin 3.7 Lipase Urine Color Urine Appearance Urine pH Ur Specific [place] Urine Protein Urine Glucose (UA) Urine Ketones Urine Blood Urine Nitrite Urine Bilirubin Urine Urobilinogen Ur Leukocyte Esterase Urine WBC (Auto) Urine RBC (Auto) Ur Epithelial Cells Urine Bacteria Urine Mucus Blood Type Antibody Screen 01/27/18 01/27/18 01/27/18 01:22 01:22 04:50 WBC RBC Hgb Hct MCV MCH MCHC RDW Plt Count MPV Absolute Neuts (auto) Neutrophils % Lymphocytes % Monocytes % Eosinophils % Basophils % Nucleated RBC % PT with INR 11.00 INR 0.97 PTT (Actin FS) 26.4 L Sodium Potassium Chloride Carbon Dioxide Anion Gap BUN Creatinine Creat Clearance w eGFR POC Glucometer Random Glucose Calcium Total Bilirubin AST ALT Alkaline Phosphatase Creatine Kinase Troponin I Total Protein Albumin Lipase 169 Urine Color Straw Urine Appearance Clear Urine pH 5.0 Ur Specific [place] 1.016 Urine Protein Negative Urine Glucose (UA) Negative Urine Ketones Negative Urine Blood Negative Urine Nitrite Negative Urine Bilirubin Negative Urine Urobilinogen Negative Ur Leukocyte Esterase 1+ H Urine WBC (Auto) 6 Urine RBC (Auto) 2 Ur Epithelial Cells Rare Urine Bacteria Rare Urine Mucus Rare Blood Type Antibody Screen 01/27/18 01/27/18 01/27/18 07:50 07:50 07:50 WBC 9.7 RBC 4.08 Hgb 11.8 Hct 35.6 MCV 87.3 MCH 28.8 MCHC 33.0 RDW 14.6 Plt Count 226 MPV 9.2 Absolute Neuts (auto) 7.6 Neutrophils % 78.2 Lymphocytes % 16.2 Monocytes % 5.4 Eosinophils % 0.1 Basophils % 0.1 Nucleated RBC % 0 PT with INR INR PTT (Actin FS) Sodium 138 Potassium 4.4 Chloride 104 Carbon Dioxide 29 Anion Gap 5 L BUN 15 Creatinine 0.5 L Creat Clearance w eGFR > 60 POC Glucometer Random Glucose 120 H Calcium 8.6 Total Bilirubin 0.3 D AST 19 ALT 31 Alkaline Phosphatase 65 Creatine Kinase Troponin I Total Protein 7.0 Albumin 3.5 Lipase Urine Color Urine Appearance Urine pH Ur Specific [place] Urine Protein Urine Glucose (UA) Urine Ketones Urine Blood Urine Nitrite Urine Bilirubin Urine Urobilinogen Ur Leukocyte Esterase Urine WBC (Auto) Urine RBC (Auto) Ur Epithelial Cells Urine Bacteria Urine Mucus Blood Type A POSITIVE Antibody Screen Negative 01/27/18 01/27/18 09:50 12:40 WBC RBC Hgb Hct MCV MCH MCHC RDW Plt Count MPV Absolute Neuts (auto) Neutrophils % Lymphocytes % Monocytes % Eosinophils % Basophils % Nucleated RBC % PT with INR INR PTT (Actin FS) Sodium Potassium Chloride Carbon Dioxide Anion Gap BUN Creatinine Creat Clearance w eGFR POC Glucometer 79 Random Glucose Calcium Total Bilirubin AST ALT Alkaline Phosphatase Creatine Kinase Troponin I Total Protein Albumin Lipase Urine Color Urine Appearance Urine pH Ur Specific [place] Urine Protein Urine Glucose (UA) Urine Ketones Urine Blood Urine Nitrite Urine Bilirubin Urine Urobilinogen Ur Leukocyte Esterase Urine WBC (Auto) Urine RBC (Auto) Ur Epithelial Cells Urine Bacteria Urine Mucus Blood Type A POSITIVE Antibody Screen Active Medications Generic Name Dose Route Start Last Admin Trade Name Freq PRN Reason Stop Dose Admin Acetaminophen 650 mg 01/27/18 05:00 Tylenol - PO Q4H PRN PAIN LEVEL 1-5 Sodium Chloride 1,000 mls @ 50 mls/hr 01/27/18 05:00 01/27/18 05:09 Normal Saline - IV 01/28/18 05:04 50 mls/hr ASDIR JEREMIAS Administration Piperacillin Sod/Tazobactam 50 mls @ 100 mls/hr 01/27/18 18:00 Sod 3.375 gm/ Dextrose IVPB Q8H-IV [facility] Protocol Insulin Aspart 1 vial 01/27/18 07:00 01/27/18 12:48 Novolog Vial Sliding Scale - SQ Not Given ACHS [facility] Protocol Morphine Sulfate 4 mg 01/27/18 05:00 Morphine Sulfate IVPUSH Q4H PRN PAIN LEVEL 6-10 Polyethylene Glycol 17 gm 01/27/18 12:45 01/27/18 13:44 Miralax (For Daily Use) - PO Not Given BID [facility] Promethazine HCl 12.5 mg 01/27/18 05:07 01/27/18 13:37 Phenergan Injection - IVPUSH 12.5 mg Q4H PRN Administration NAUSEA AND/OR VOMITING Ambulatory Orders Esomeprazole Magnesium [Nexium 24Hr] 20 mg PO DAILY #30 capsule. 01/19/18 Current Medications Acetaminophen (Tylenol -) 650 mg PO Q4H PRN PRN Reason: PAIN LEVEL 1-5 Sodium Chloride (Normal Saline -) 1,000 mls @ 50 mls/hr IV ASDIR JEREMIAS Stop: 01/28/18 05:04 Last Admin: 01/27/18 05:09 Dose: 50 mls/hr Piperacillin Sod/Tazobactam (Sod 3.375 gm/ Dextrose) 50 mls @ 100 mls/hr IVPB Q8H-IV JEREMIAS; Protocol Last Admin: 01/27/18 17:52 Dose: 100 mls/hr Insulin Aspart (Novolog Vial Sliding Scale -) 1 vial SQ ACHS [facility]; Protocol Last Admin: 01/27/18 17:51 Dose: Not Given Morphine Sulfate (Morphine Injection -) 2 mg IVPUSH Q4H PRN PRN Reason: PAIN LEVEL 6-10 Polyethylene Glycol (Miralax (For Daily Use) -) 17 gm PO BID [facility] Last Admin: 01/27/18 13:44 Dose: Not Given Promethazine HCl (Phenergan Injection -) 12.5 mg IVPUSH Q4H PRN PRN Reason: NAUSEA AND/OR VOMITING Last Admin: 01/27/18 13:37 Dose: 12.5 mg HIDA scan: No obstruction of common bile duct RUQ US: cholelithiasis, thickened gallbladder at 7mm, + edward sign ASSESSMENT/PLAN: 72F w/ hx of metastatic breast ca to lung (dx in 2007, s/p chemo, radiation, mastectomy in 2008 currently in remission) and DM who presents with epigastric/ RUQ abdominal pain #abdominal pain -likely 2/2 cholecystitis -surgery consulted Dr Arrington on board, appreciate recs -Pt for likely cholecystectomy on Tuesday at noon following Medical/ Cardiol clearance -GI consulted, Dr. Smalls, appreciate recs-HIDA scan done -Liquid diet -ID on board- Dr Anders- apprec recs -zosyn 3.375mg (started 01/27/18) -pain control with morphine 2mg Q4PRN, tylenol -NS @ 50cc/hr -promethazine 12.5mg Q4H #DM -Has not been on home mmeds for DM -BGM ACHS, ISS #metastatic breast cancer in remission -s/p R lobectomy -not active issue -last oncology appointment was in march of 2017. follows at [facility] #FEN -NS @ 50 -electrolytes wnl -Liquid diet #ppx -no GI ppx indicated -heparin sq #Dispo -For likely cholecystectomy on Tuesday Visit type - Emergency Visit Emergency Visit: Yes ED Registration Date: 01/27/18 Care time: The patient presented to the Emergency Department on the above date and was hospitalized for further evaluation of their emergent condition. - New Patient This patient is new to me today: Yes Date on this admission: 01/27/18 - Critical Care Critical Care patient: No - Discharge Referral Referred to [facility] Med P.C.: No
--- NOTE | 2018-01-27 17:17 | CON.CARD ---
Consult Consult Specialty:: Cardiology Referred by:: Hospitalist Medicine Reason for Consultation:: Pre-operative cardiovascular evaluation - History of Present Illness Chief Complaint: RUQ pain History of Present Illness: 72 yo PMH breast cancer metastatic to lung (dx in 2007, s/p chemo, radiation, mastectomy in 2009 currently in remission), constipation, DM on insulin, recent gallstone pancreatitis, presented with epigastric pain radiating to RUQ and into chest, is 9/10 in severity, "ripping" in quality, and constant associated with nausea, emesis x 5 episodes, lightheadedness, and SOB. She denies fevers, chills, diarrhea, constipation, and dysuria. She was hospitalized for gallstone sludge-induced pancreatitis and discharged on 11/21. She was instructed to follow up with a surgeon for elective cholecystectomy, but did not. Denies previous abdominal surgery. She denies angina, true syncope, palpitations, orthopnea, PND or LE edema or decrement in exercise capacity. - History Source History Provided By: Patient Limitations to Obtaining History: No Limitations - Past Medical History Pulmonary: Yes: Cancer (mets from breast) Gastrointestinal: Yes: Constipation, Pancreatitis (gallstone pancreatitis ), Other (Fatty liver) Endocrine: Yes: Diabetes Mellitus Additional Medical History: Breast Cancer 2007 metastatic to lung - Past Surgical History Past Surgical History: Yes: Mastectomy - Alcohol/Substance Use Hx Alcohol Use: No History of Substance Use: reports: None - Smoking History Smoking history: Never smoked Have you smoked in the past 12 months: No - Social History Usual Living Arrangement: With Child ADL: Independent Occupation: bank cashier History of Recent Travel: No Home Medications - Allergies Allergies/Adverse Reactions: Allergies Allergy/AdvReac Type Severity Reaction Status Date / Time No Known Allergies Allergy Verified 01/27/18 00:33 - Home Medications Home Medications: Ambulatory Orders Esomeprazole Magnesium [Nexium 24Hr] 20 mg PO DAILY #30 capsule. 01/19/18 Family Disease History - Family Disease History Family Disease History: Diabetes: Father, Mother, Heart Disease: Father, Mother Review of Systems - Review of Systems Gastrointestinal: reports: Abdominal Pain, Nausea, Vomiting Vital Signs: Vital Signs Temperature 98.8 F 01/27/18 13:00 Pulse Rate 76 01/27/18 13:00 Respiratory Rate 18 01/27/18 13:00 Blood Pressure 130/54 01/27/18 13:00 O2 Sat by Pulse Oximetry (%) 98 01/27/18 09:00 Constitutional: Yes: No Distress, Calm Neck: Yes: Supple Respiratory: Yes: Regular, CTA Bilaterally Gastrointestinal: Yes: Soft, Abdomen, Obese, Hypoactive Bowel Sounds, Tenderness (RUQ, + Silverio's sign) Cardiovascular: Yes: Regular Rate and Rhythm JVD: No Carotid Bruit: No Heart Sounds: Yes: S1, S2 Edema: No - Other Data Labs, Other Data: CBC, BMP 01/27/18 07:50 01/27/18 07:50 INR, PTT INR 0.97 (0.82-1.09) 01/27/18 01:22 Troponin, BNP 01/27/18 01:22 Troponin I < 0.02 Troponin, BNP 01/27/18 01:22 Troponin I < 0.02 NSR min criteria [facility] Imaging - Results Chest X-ray: Report Reviewed (NAD) Cat Scan: Report Reviewed (Thickened GB majano with cholelithiasis, HIDA scan negative for acute cystic duct obstruction) Problem List - Problems (1) Biliary colic Code(s): K80.50 - CALCULUS OF BILE DUCT W/O CHOLANGITIS OR CHOLECYST W/O OBST (2) Pre-operative cardiovascular examination Code(s): Z01.810 - ENCOUNTER FOR PREPROCEDURAL CARDIOVASCULAR EXAMINATION (3) Cholecystitis, unspecified Code(s): K81.9 - CHOLECYSTITIS, UNSPECIFIED (4) Borderline type 2 diabetes mellitus Code(s): R73.09 - OTHER ABNORMAL GLUCOSE (5) History of breast cancer Code(s): Z85.3 - PERSONAL HISTORY OF MALIGNANT NEOPLASM OF BREAST Assessment/Plan 1. Pre-operative cardiovascular evaluation prior to laparoscopic cholecystectomy for biliary colic vs chronic cholecystitis 2. Metastatic breast CA (to lung) in remission P:1. Given absence of symptoms of acute coronary syndrome, decompensated CHF or malignant arrhythmia, may proceed with laparoscopic cholecystectomy from CV- standpoint without further testing 2. Continue empiric abx coverage for biliary will per ID 3. IVF, clear liquid diet, DVT and GI prophylaxis, analgesia as needed 4. Thank you for consultative opportunity
[2018-01-27] MEDS ORDERED: morphine CARPU-JECT 2 MG/1 ML DISP.SYRIN IVPUSH PRN (17:42)
[2018-01-27] MEDS: PIPERACILLIN/TAZOB 3.375 GM 3.375 GM in DEXTROSE 5%-WATER - 50 ML IVPB SCH (17:52)
--- NOTE | 2018-01-27 17:53 | PN ---
Teaching Attending Note Name of Resident: Consuelo Najera ATTENDING PHYSICIAN STATEMENT I saw and evaluated the patient. I reviewed the resident's note and discussed the case with the resident. I agree with the resident's findings and plan as documented with exceptions below. SUBJECTIVE: Patient seen and examined, reports some nausea when ambulating. But no nausea, vomiting, abdominal pain, fevers/chills currently. OBJECTIVE: Vital Signs Period Temp Pulse Resp BP Sys/Hemphill Pulse Ox Last 24 Hr 97.6 F-98.8 F 56-92 15-20 120-138/54-79 93-99 Intake & Output 01/24/18 01/25/18 01/26/18 01/27/18 23:59 23:59 23:59 23:59 Intake Total 300 Balance 300 Weight 185 lb 11.2 oz General: lying in bed in no acute distress Abdomen: soft, minimal tenderness on deep palpation medial RUQ, neg Silverio's sign, NT otherwise, ND, positive bowel sounds Extremities: no edema Chest: CTAB, no rales or wheezing Home Medications Medication Instructions Recorded Esomeprazole Magnesium [Nexium 20 mg PO DAILY #30 capsule. 01/19/18 24Hr] Active Medications Acetaminophen (Tylenol -) 650 mg PO Q4H PRN PRN Reason: PAIN LEVEL 1-5 Sodium Chloride (Normal Saline -) 1,000 mls @ 50 mls/hr IV ASDIR JEREMIAS Stop: 01/28/18 05:04 Last Admin: 01/27/18 05:09 Dose: 50 mls/hr Piperacillin Sod/Tazobactam (Sod 3.375 gm/ Dextrose) 50 mls @ 100 mls/hr IVPB Q8H-IV [facility]; Protocol Insulin Aspart (Novolog Vial Sliding Scale -) 1 vial SQ ACHS [facility]; Protocol Last Admin: 01/27/18 12:48 Dose: Not Given Morphine Sulfate (Morphine Injection -) 2 mg IVPUSH Q4H PRN PRN Reason: PAIN LEVEL 6-10 Polyethylene Glycol (Miralax (For Daily Use) -) 17 gm PO BID [facility] Last Admin: 01/27/18 13:44 Dose: Not Given Promethazine HCl (Phenergan Injection -) 12.5 mg IVPUSH Q4H PRN PRN Reason: NAUSEA AND/OR VOMITING Last Admin: 01/27/18 13:37 Dose: 12.5 mg Laboratory Results - last 24 hr 01/27/18 01/27/18 01/27/18 01:22 01:22 01:22 WBC 10.7 H RBC 4.23 Hgb 12.2 Hct 37.0 MCV 87.5 MCH 28.9 MCHC 33.1 RDW 15.1 Plt Count 240 MPV 9.4 Absolute Neuts (auto) 8.7 Neutrophils % 81.0 Lymphocytes % 14.5 D Monocytes % 3.8 Eosinophils % 0.4 Basophils % 0.3 Nucleated RBC % 0 PT with INR INR PTT (Actin FS) Sodium 140 Potassium 3.9 Chloride 104 Carbon Dioxide 29 Anion Gap 7 L BUN 19 H Creatinine 0.9 Creat Clearance w eGFR > 60 POC Glucometer Random Glucose 148 H Calcium 8.9 Total Bilirubin 0.2 D AST 13 L ALT 30 Alkaline Phosphatase 69 Creatine Kinase 71 Troponin I < 0.02 Total Protein 7.4 Albumin 3.7 Lipase Urine Color Urine Appearance Urine pH Ur Specific [place] Urine Protein Urine Glucose (UA) Urine Ketones Urine Blood Urine Nitrite Urine Bilirubin Urine Urobilinogen Ur Leukocyte Esterase Urine WBC (Auto) Urine RBC (Auto) Ur Epithelial Cells Urine Bacteria Urine Mucus Blood Type Antibody Screen 01/27/18 01/27/18 01/27/18 01:22 01:22 04:50 WBC RBC Hgb Hct MCV MCH MCHC RDW Plt Count MPV Absolute Neuts (auto) Neutrophils % Lymphocytes % Monocytes % Eosinophils % Basophils % Nucleated RBC % PT with INR 11.00 INR 0.97 PTT (Actin FS) 26.4 L Sodium Potassium Chloride Carbon Dioxide Anion Gap BUN Creatinine Creat Clearance w eGFR POC Glucometer Random Glucose Calcium Total Bilirubin AST ALT Alkaline Phosphatase Creatine Kinase Troponin I Total Protein Albumin Lipase 169 Urine Color Straw Urine Appearance Clear Urine pH 5.0 Ur Specific [place] 1.016 Urine Protein Negative Urine Glucose (UA) Negative Urine Ketones Negative Urine Blood Negative Urine Nitrite Negative Urine Bilirubin Negative Urine Urobilinogen Negative Ur Leukocyte Esterase 1+ H Urine WBC (Auto) 6 Urine RBC (Auto) 2 Ur Epithelial Cells Rare Urine Bacteria Rare Urine Mucus Rare Blood Type Antibody Screen 01/27/18 01/27/18 01/27/18 07:50 07:50 07:50 WBC 9.7 RBC 4.08 Hgb 11.8 Hct 35.6 MCV 87.3 MCH 28.8 MCHC 33.0 RDW 14.6 Plt Count 226 MPV 9.2 Absolute Neuts (auto) 7.6 Neutrophils % 78.2 Lymphocytes % 16.2 Monocytes % 5.4 Eosinophils % 0.1 Basophils % 0.1 Nucleated RBC % 0 PT with INR INR PTT (Actin FS) Sodium 138 Potassium 4.4 Chloride 104 Carbon Dioxide 29 Anion Gap 5 L BUN 15 Creatinine 0.5 L Creat Clearance w eGFR > 60 POC Glucometer Random Glucose 120 H Calcium 8.6 Total Bilirubin 0.3 D AST 19 ALT 31 Alkaline Phosphatase 65 Creatine Kinase Troponin I Total Protein 7.0 Albumin 3.5 Lipase Urine Color Urine Appearance Urine pH Ur Specific [place] Urine Protein Urine Glucose (UA) Urine Ketones Urine Blood Urine Nitrite Urine Bilirubin Urine Urobilinogen Ur Leukocyte Esterase Urine WBC (Auto) Urine RBC (Auto) Ur Epithelial Cells Urine Bacteria Urine Mucus Blood Type A POSITIVE Antibody Screen Negative 01/27/18 01/27/18 09:50 12:40 WBC RBC Hgb Hct MCV MCH MCHC RDW Plt Count MPV Absolute Neuts (auto) Neutrophils % Lymphocytes % Monocytes % Eosinophils % Basophils % Nucleated RBC % PT with INR INR PTT (Actin FS) Sodium Potassium Chloride Carbon Dioxide Anion Gap BUN Creatinine Creat Clearance w eGFR POC Glucometer 79 Random Glucose Calcium Total Bilirubin AST ALT Alkaline Phosphatase Creatine Kinase Troponin I Total Protein Albumin Lipase Urine Color Urine Appearance Urine pH Ur Specific [place] Urine Protein Urine Glucose (UA) Urine Ketones Urine Blood Urine Nitrite Urine Bilirubin Urine Urobilinogen Ur Leukocyte Esterase Urine WBC (Auto) Urine RBC (Auto) Ur Epithelial Cells Urine Bacteria Urine Mucus Blood Type A POSITIVE Antibody Screen CT A/P: Thickened gallbladder wall, stone in gall bladder neck HIDA scan neg Abdominal US results noted ASSESSMENT AND PLAN: 72 yof with PMHx of metastatic breast ca to lung (dx in 2007, s/p chemo, radiation, mastectomy in 2009 currently in remission) and DM, admitted with abdominal pain, nausea, vomiting. -Abdominal pain/nausea/vomiting, gall bladder disease/Cholelithiasis +/- cholecystitis -Breast ca in remission -Diet controlled DM Plan: GI/Surgery/ID input appreciated. CT A/P neg for metastasis or concerns. Discussed with Dr. Arrington, plan for lap CCY. Pre-op cardiac clearance. Zosyn day 1. Discussed with Dr Arrington, advance to clears. ISS. DVTPPX dispo pending clinical improvement and plan as above. plan discussed with patient and family at bedside in detail, all questions answered.
[2018-01-27] MEDS ORDERED: PIPERACILLIN/TAZOB 3.375 GM 3.375 GM in DEXTROSE 5%-WATER - 50 ML IVPB SCH (18:00)
[2018-01-27] MEDS: HEPARIN NA (PORCINE) 5,000 UNITS/ML 1ML VIAL SQ SCH (21:19)
[2018-01-28] MEDS: PIPERACILLIN/TAZOB 3.375 GM 3.375 GM in DEXTROSE 5%-WATER - 50 ML IVPB SCH ×3 (02:45→18:53)
[2018-01-28] MEDS: SODIUM CHLORIDE 1,000 ML IV SCH (05:39)
[2018-01-28] MEDS: HEPARIN NA (PORCINE) 5,000 UNITS/ML 1ML VIAL SQ SCH ×3 (05:39→21:42)
[2018-01-28] MEDS: INSULIN SLIDING SCALE (NOVOLOG) 1 VIAL SQ SCH ×4 (06:06→21:43)
[2018-01-28 07:34] LABS: BASO % 0.4 % (0-2.0); EOS % 3.2 % (0-4.5); HEMOGLOBIN 11.6 GM/dL (10.7-15.3); LYMPH % 40.1 % (8-40); MCH 29.1 pg (25.7-33.7); MCHC 33.2 g/dl (32.0-36.0); MEAN CELL VOLUME 87.5 fl (80-96); MEAN PLT VOLUME 9.2 fl (7.5-11.1); MONO % 7.3 % (3.8-10.2); PLATELET COUNT 210 K/MM3 (134-434); RBC 3.99 M/mm3 (3.60-5.2)
[2018-01-28 08:20] LABS: CHLORIDE 106 mmol/L (98-107); POTASSIUM 3.9 mmol/L (3.5-5.1); SODIUM 144 mmol/L (136-145)
[2018-01-28 08:37] LABS: ALBUMIN 3.2 g/dl (3.4-5.0); ALK PHOS 62 U/L (45-117); ANION GAP 7 (8-16); BILIRUBIN,TOTAL 0.5 mg/dL (0.2-1.0); BLOOD UREA NITROGEN 11 mg/dL (7-18); CALCIUM 8.3 mg/dL (8.5-10.1); CO2 31 mmol/L (21-32); CREATININE 0.6 mg/dL (0.55-1.02); GLUCOSE,RANDOM 89 mg/dL (74-106); MAGNESIUM 2.2 mg/dL (1.8-2.4); PHOSPHOROUS 3.3 mg/dL (2.5-4.9); SGOT/AST 17 U/L (15-37); SGPT/ALT 25 U/L (12-78); TOT PROT 6.5 g/dl (6.4-8.2)
--- NOTE | 2018-01-28 09:29 | PN ---
Physical Exam: SUBJECTIVE: Patient has no complaint. Tolerating diet. No BM and bowel symptoms thus far. Asked questions about cholecystectomy. OBJECTIVE: Vital Signs Period Temp Pulse Resp BP Sys/Hemphill Pulse Ox Last 24 Hr 97.6 F-98.8 F 56-76 18-18 130-152/54-80 98 GENERAL: The patient is awake, alert, and fully oriented, in no acute distress. LUNGS: CTAB HEART: RRR, S1, S2 without murmur, rub or gallop. ABDOMEN: Soft, nontender, nondistended, normoactive bowel sounds, no guarding, no rebound EXTREMITIES: 2+ pulses, warm, well-perfused, no edema. CBCD WBC 7.0 K/mm3 (4.0-10.0) 01/28/18 06:00 RBC 3.99 M/mm3 (3.60-5.2) 01/28/18 06:00 Hgb 11.6 GM/dL (10.7-15.3) 01/28/18 06:00 Hct 35.0 % (32.4-45.2) 01/28/18 06:00 MCV 87.5 fl (80-96) 01/28/18 06:00 MCHC 33.2 g/dl (32.0-36.0) 01/28/18 06:00 RDW 15.0 % (11.6-15.6) 01/28/18 06:00 Plt Count 210 K/MM3 (134-434) 01/28/18 06:00 MPV 9.2 fl (7.5-11.1) 01/28/18 06:00 CMP Sodium 144 mmol/L (136-145) 01/28/18 06:00 Potassium 3.9 mmol/L (3.5-5.1) 01/28/18 06:00 Chloride 106 mmol/L (98-107) 01/28/18 06:00 Carbon Dioxide 31 mmol/L (21-32) 01/28/18 06:00 Anion Gap 7 (8-16) L 01/28/18 06:00 BUN 11 mg/dL (7-18) 01/28/18 06:00 Creatinine 0.6 mg/dL (0.55-1.02) 01/28/18 06:00 Creat Clearance w eGFR > 60 (>60) 01/28/18 06:00 Calcium 8.3 mg/dL (8.5-10.1) L 01/28/18 06:00 Total Bilirubin 0.5 mg/dL (0.2-1.0) D 01/28/18 06:00 AST 17 U/L (15-37) 01/28/18 06:00 ALT 25 U/L (12-78) 01/28/18 06:00 Alkaline Phosphatase 62 U/L (45-117) 01/28/18 06:00 Total Protein 6.5 g/dl (6.4-8.2) 01/28/18 06:00 Albumin 3.2 g/dl (3.4-5.0) L 01/28/18 06:00 ASSESSMENT/PLAN: 72 yo F h/o metastatic breast ca to lung s/p radiation and chemo, mastectomy in 2008 currently in remission and DM admitted to the hospital for cholecystitis. 1. cholecystitis: hemodynamically stable, surgery on tuesday. HIDA confirms no obstruction. On zosyn day 2. On NS and pain control with morphine. Promethazine for n/v control. 2. DM: BGM and ISS 3. breast ca with mets: in remission: stable dvt ppx: heparin sq diet: liquid for now, npo on tuesday night Arian Hansen PGY2 [phone] Visit type - Emergency Visit Emergency Visit: No - New Patient This patient is new to me today: No - Critical Care Critical Care patient: No
--- NOTE | 2018-01-28 09:45 | PN ---
Teaching Attending Note Name of Resident: Arian Hansen ATTENDING PHYSICIAN STATEMENT I saw and evaluated the patient. I reviewed the resident's note and discussed the case with the resident. I agree with the resident's findings and plan as documented with exceptions below. SUBJECTIVE: Patient seen and examined. no nausea, vomiting, abdominal pain, fevers, or chills. Taking PO well. OBJECTIVE: Vital Signs Period Temp Pulse Resp BP Sys/Hemphill Pulse Ox Last 24 Hr 97.6 F-98.8 F 56-76 18-18 130-152/54-80 98 Intake & Output 01/25/18 01/26/18 01/27/18 01/28/18 23:59 23:59 23:59 23:59 Intake Total 950 600 Balance 950 600 Weight 185 lb 11.2 oz General: sitting in bed in no acute distress Abdomen:soft, NT throughout, ND, positive bowel sounds, neg Silverio's sign Home Medications Medication Instructions Recorded Esomeprazole Magnesium [Nexium 20 mg PO DAILY #30 capsule. 01/19/18 24Hr] Active Medications Acetaminophen (Tylenol -) 650 mg PO Q4H PRN PRN Reason: PAIN LEVEL 1-5 Heparin Sodium (Porcine) (Heparin -) 5,000 unit SQ TID JER[facility] Last Admin: 01/28/18 05:39 Dose: Not Given Piperacillin Sod/Tazobactam (Sod 3.375 gm/ Dextrose) 50 mls @ 100 mls/hr IVPB Q8H-IV [facility]; Protocol Last Admin: 01/28/18 02:45 Dose: 100 mls/hr Insulin Aspart (Novolog Vial Sliding Scale -) 1 vial SQ ACHS [facility]; Protocol Last Admin: 01/28/18 06:06 Dose: Not Given Morphine Sulfate (Morphine Injection -) 2 mg IVPUSH Q4H PRN PRN Reason: PAIN LEVEL 6-10 Polyethylene Glycol (Miralax (For Daily Use) -) 17 gm PO BID [facility] Last Admin: 01/27/18 21:14 Dose: 17 gm Promethazine HCl (Phenergan Injection -) 12.5 mg IVPUSH Q4H PRN PRN Reason: NAUSEA AND/OR VOMITING Last Admin: 01/27/18 13:37 Dose: 12.5 mg Laboratory Results - last 24 hr 01/27/18 01/27/18 01/27/18 09:50 12:40 17:51 WBC RBC Hgb Hct MCV MCH MCHC RDW Plt Count MPV Absolute Neuts (auto) Neutrophils % Lymphocytes % Monocytes % Eosinophils % Basophils % Nucleated RBC % Sodium Potassium Chloride Carbon Dioxide Anion Gap BUN Creatinine Creat Clearance w eGFR POC Glucometer 79 92 Random Glucose Calcium Phosphorus Magnesium Total Bilirubin AST ALT Alkaline Phosphatase Total Protein Albumin Blood Type A POSITIVE 01/28/18 01/28/18 01/28/18 05:33 06:00 06:00 WBC 7.0 RBC 3.99 Hgb 11.6 Hct 35.0 MCV 87.5 MCH 29.1 MCHC 33.2 RDW 15.0 Plt Count 210 MPV 9.2 Absolute Neuts (auto) 3.4 Neutrophils % 49.0 D Lymphocytes % 40.1 H D Monocytes % 7.3 Eosinophils % 3.2 D Basophils % 0.4 D Nucleated RBC % 0 Sodium 144 Potassium 3.9 Chloride 106 Carbon Dioxide 31 Anion Gap 7 L BUN 11 Creatinine 0.6 Creat Clearance w eGFR > 60 POC Glucometer 87 Random Glucose 89 Calcium 8.3 L Phosphorus 3.3 Magnesium 2.2 Total Bilirubin 0.5 D AST 17 ALT 25 Alkaline Phosphatase 62 Total Protein 6.5 Albumin 3.2 L Blood Type ASSESSMENT AND PLAN: 72 yof with PMHx of metastatic breast ca to lung (dx in 2007, s/p chemo, radiation, mastectomy in 2008 currently in remission) and DM, admitted with abdominal pain, nausea, vomiting. -Abdominal pain/nausea/vomiting, gall bladder disease/Cholelithiasis +/- cholecystitis -Breast ca in remission -Diet controlled DM Plan: GI/Surgery/ID input appreciated. CT A/P neg for metastasis or concerns. Discussed with Dr. Arrington, plan for lap CCY. Pre-op cardiac clearance. Zosyn day 2. Clears as tolerated. ISS. DVTPPX dispo pending clinical improvement and plan as above, early next week of no concerns post CCY. plan discussed with patient in detail, all questions answered.
[2018-01-28] MEDS ORDERED: DEXTROSE 5%-WATER - 50 ML IVPB ONE ×2 (09:50→18:45)
[2018-01-28] MEDS ORDERED: PIPERACILLIN/TAZOBACTAM 3.375 GM VIAL IVPB ONE ×2 (09:50→18:44)
[2018-01-28] MEDS: PANTOPRAZOLE 40 MG TABLET (FP) PO SCH (10:07)
[2018-01-28] MEDS: POLYETHYLENE GLYCOL 3350 119 GM BTL PO SCH ×2 (10:07→21:42)
--- NOTE | 2018-01-28 11:55 | PN ---
Progress Note, Physician Chief Complaint: abdominal pain History of Present Illness: 72 yo PMH breast cancer metastatic to lung (dx in 2008, s/p chemo, radiation, mastectomy in 2009 currently in remission), constipation, DM on insulin, recent gallstone pancreatitis, presents with abdominal pain since the previous night. Her abdominal pain has improved since this admission. no complaints. - Current Medication List Current Medications: Active Medications Acetaminophen (Tylenol -) 650 mg PO Q4H PRN PRN Reason: PAIN LEVEL 1-5 Heparin Sodium (Porcine) (Heparin -) 5,000 unit SQ TID [facility] Last Admin: 01/28/18 05:39 Dose: Not Given Piperacillin Sod/Tazobactam (Sod 3.375 gm/ Dextrose) 50 mls @ 100 mls/hr IVPB Q8H-IV [facility]; Protocol Last Admin: 01/28/18 10:07 Dose: 100 mls/hr Insulin Aspart (Novolog Vial Sliding Scale -) 1 vial SQ ACHS [facility]; Protocol Last Admin: 01/28/18 06:06 Dose: Not Given Morphine Sulfate (Morphine Injection -) 2 mg IVPUSH Q4H PRN PRN Reason: PAIN LEVEL 6-10 Pantoprazole Sodium (Protonix -) 40 mg PO DAILY [facility] Last Admin: 01/28/18 10:07 Dose: 40 mg Polyethylene Glycol (Miralax (For Daily Use) -) 17 gm PO BID [facility] Last Admin: 01/28/18 10:07 Dose: 17 gm Promethazine HCl (Phenergan Injection -) 12.5 mg IVPUSH Q4H PRN PRN Reason: NAUSEA AND/OR VOMITING Last Admin: 01/27/18 13:37 Dose: 12.5 mg - Objective Vital Signs: Vital Signs Temperature 98.2 F 01/28/18 06:31 Pulse Rate 59 L 01/27/18 22:00 Respiratory Rate 18 01/27/18 22:00 Blood Pressure 152/80 01/27/18 22:00 O2 Sat by Pulse Oximetry (%) 98 01/27/18 21:00 Vital Signs Period Temp Pulse Resp BP Sys/Hemphill Pulse Ox Last 24 Hr 97.6 F-98.8 F 56-76 18-18 130-152/54-80 98 Constitutional: Yes: Well Nourished, No Distress, Calm, Obese Eyes: Yes: Conjunctiva Clear, EOM Intact HENT: Yes: Atraumatic, Normocephalic Neck: Yes: Supple, Trachea Midline Cardiovascular: Yes: Regular Rate and Rhythm, S1, S2 Respiratory: Yes: Regular, CTA Bilaterally Gastrointestinal: Yes: Normal Bowel Sounds, Soft, Abdomen, Obese ...Rectal Exam: Yes: Deferred Genitourinary: No: CVA Tenderness - Left, CVA Tenderness - Right Breast(s): Yes: Other (right mastectomy) Musculoskeletal: No: Muscle Pain, Muscle Weakness Extremities: No: Cool, Cyanosis Edema: No Peripheral Pulses WNL: Yes Peripheral Pulses: Left Doralis Pedis: 2+, Right Dorsalis Pedis: 2+ Neurological: Yes: Alert, Oriented Psychiatric: Yes: Alert, Oriented Labs: CBC, BMP 01/28/18 06:00 01/28/18 06:00 INR, PTT INR 0.97 (0.82-1.09) 01/27/18 01:22 Problem List - Problems (1) Cholecystitis, unspecified Assessment/Plan: 72yo female PMH DM metastatic breast CA (to lung) in remission, presenting with RUQ abdominal pain, history of gallstone pancreatitis with a plan for surgery but she did not followup. Chronic cholecystitis vs. biliary colic, CT scan of Abdomen/ Pelvis yesterday showed thickened gallbladder wall and a stone in the neck. Discussed findings with patient and family will obtain formal consent for surgery. Appreciste ID and GI evaluations. CleaR diet consider empiric IV antibiotics Appreciate Cardiology evaluation by Dr. Ojeda Adequate analgesia GI and DVT prophylaxis OR tentatively scheduled for surgery Tuesday at 12 noon Discussed with patient risks, benefits and alternatives of laparoscopic possible open cholecystectomy, including but not limited to bleeding, infection , injury to adjacent structures, leak or injury, intraabdominal abscess, need for further procedures, ; alternatives include antibiotics, delayed or no surgery - risks of this include failure of nonoperative therapy, perforation, sepsis, recurrence, . Patient desires to proceed with operation - will take to OR for above. Code(s): K81.9 - CHOLECYSTITIS, UNSPECIFIED (2) Abdominal pain in female patient Code(s): R10.9 - UNSPECIFIED ABDOMINAL PAIN (3) Acute gallstone pancreatitis Code(s): K85.1 - BILIARY ACUTE PANCREATITIS * DO NOT USE * (4) Borderline type 2 diabetes mellitus Code(s): R73.09 - OTHER ABNORMAL GLUCOSE (5) History of breast cancer Code(s): Z85.3 - PERSONAL HISTORY OF MALIGNANT NEOPLASM OF BREAST
--- NOTE | 2018-01-28 12:08 | PN ---
Progress Note, Physician History of Present Illness: Pt seen and examined. Events noted. She has no current abd pain/n/v/d. Remains afebrile, without new complaints. - Current Medication List Current Medications: Active Medications Acetaminophen (Tylenol -) 650 mg PO Q4H PRN PRN Reason: PAIN LEVEL 1-5 Heparin Sodium (Porcine) (Heparin -) 5,000 unit SQ TID [facility] Last Admin: 01/28/18 05:39 Dose: Not Given Piperacillin Sod/Tazobactam (Sod 3.375 gm/ Dextrose) 50 mls @ 100 mls/hr IVPB Q8H-IV [facility]; Protocol Last Admin: 01/28/18 10:07 Dose: 100 mls/hr Insulin Aspart (Novolog Vial Sliding Scale -) 1 vial SQ ACHS [facility]; Protocol Last Admin: 01/28/18 06:06 Dose: Not Given Morphine Sulfate (Morphine Injection -) 2 mg IVPUSH Q4H PRN PRN Reason: PAIN LEVEL 6-10 Pantoprazole Sodium (Protonix -) 40 mg PO DAILY [facility] Last Admin: 01/28/18 10:07 Dose: 40 mg Polyethylene Glycol (Miralax (For Daily Use) -) 17 gm PO BID [facility] Last Admin: 01/28/18 10:07 Dose: 17 gm Promethazine HCl (Phenergan Injection -) 12.5 mg IVPUSH Q4H PRN PRN Reason: NAUSEA AND/OR VOMITING Last Admin: 01/27/18 13:37 Dose: 12.5 mg - Objective Vital Signs: Vital Signs Temperature 98.2 F 01/28/18 06:31 Pulse Rate 59 L 01/27/18 22:00 Respiratory Rate 18 01/27/18 22:00 Blood Pressure 152/80 01/27/18 22:00 O2 Sat by Pulse Oximetry (%) 98 01/27/18 21:00 Constitutional: Yes: No Distress, Calm Cardiovascular: Yes: Regular Rate and Rhythm Respiratory: Yes: Regular Gastrointestinal: Yes: Normal Bowel Sounds, Soft Genitourinary: Yes: WNL Neurological: Yes: Alert Labs: CBC, BMP 01/28/18 06:00 01/28/18 06:00 INR, PTT INR 0.97 (0.82-1.09) 01/27/18 01:22 - ....Imaging Cat Scan: Report Reviewed (thickened GB wall with calculus in GB neck) Problem List - Problems (1) Biliary colic Code(s): K80.50 - CALCULUS OF BILE DUCT W/O CHOLANGITIS OR CHOLECYST W/O OBST (2) Borderline type 2 diabetes mellitus Code(s): R73.09 - OTHER ABNORMAL GLUCOSE (3) History of breast cancer Code(s): Z85.3 - PERSONAL HISTORY OF MALIGNANT NEOPLASM OF BREAST (4) Cholecystitis, unspecified Code(s): K81.9 - CHOLECYSTITIS, UNSPECIFIED (5) Acute gallstone pancreatitis Code(s): K85.1 - BILIARY ACUTE PANCREATITIS * DO NOT USE * Assessment/Plan Pt with intermittent RUQ pain, hx of gallstone pancreatitis -- CT scan results reviewed - thickened GB wall with calculus in neck -- continue empiric antibiotics for neck -- scheduled for cholecystectomy on tuesday continue monitor
--- NOTE | 2018-01-28 18:54 | PN ---
Progress Note, Physician History of Present Illness: Denies recurrent epigastric discomfort, nausea, emesis, fevers. - Current Medication List Current Medications: Active Medications Acetaminophen (Tylenol -) 650 mg PO Q4H PRN PRN Reason: PAIN LEVEL 1-5 Heparin Sodium (Porcine) (Heparin -) 5,000 unit SQ TID [facility] Last Admin: 01/28/18 15:15 Dose: Not Given Piperacillin Sod/Tazobactam (Sod 3.375 gm/ Dextrose) 50 mls @ 100 mls/hr IVPB Q8H-IV [facility]; Protocol Last Admin: 01/28/18 18:53 Dose: 100 mls/hr Insulin Aspart (Novolog Vial Sliding Scale -) 1 vial SQ ACHS [facility]; Protocol Last Admin: 01/28/18 17:48 Dose: Not Given Morphine Sulfate (Morphine Injection -) 2 mg IVPUSH Q4H PRN PRN Reason: PAIN LEVEL 6-10 Pantoprazole Sodium (Protonix -) 40 mg PO DAILY [facility] Last Admin: 01/28/18 10:07 Dose: 40 mg Polyethylene Glycol (Miralax (For Daily Use) -) 17 gm PO BID [facility] Last Admin: 01/28/18 10:07 Dose: 17 gm Promethazine HCl (Phenergan Injection -) 12.5 mg IVPUSH Q4H PRN PRN Reason: NAUSEA AND/OR VOMITING Last Admin: 01/27/18 13:37 Dose: 12.5 mg - Objective Vital Signs: Vital Signs Temperature 98.6 F 01/28/18 17:02 Pulse Rate 53 L 01/28/18 17:02 Respiratory Rate 20 01/28/18 17:02 Blood Pressure 133/61 01/28/18 17:02 O2 Sat by Pulse Oximetry (%) 98 01/28/18 09:00 Constitutional: Yes: No Distress, Calm Neck: Yes: Supple Cardiovascular: Yes: Regular Rate and Rhythm Respiratory: Yes: Regular, CTA Bilaterally Gastrointestinal: Yes: Soft, Hypoactive Bowel Sounds, Tenderness (RUQ) Edema: No Labs: CBC, BMP 01/28/18 06:00 01/28/18 06:00 INR, PTT INR 0.97 (0.82-1.09) 01/27/18 01:22 Problem List - Problems (1) Biliary colic Code(s): K80.50 - CALCULUS OF BILE DUCT W/O CHOLANGITIS OR CHOLECYST W/O OBST (2) Pre-operative cardiovascular examination Code(s): Z01.810 - ENCOUNTER FOR PREPROCEDURAL CARDIOVASCULAR EXAMINATION (3) Cholecystitis, unspecified Code(s): K81.9 - CHOLECYSTITIS, UNSPECIFIED (4) Borderline type 2 diabetes mellitus Code(s): R73.09 - OTHER ABNORMAL GLUCOSE (5) History of breast cancer Code(s): Z85.3 - PERSONAL HISTORY OF MALIGNANT NEOPLASM OF BREAST Assessment/Plan 1. Pre-operative cardiovascular evaluation prior to laparoscopic cholecystectomy for biliary colic vs chronic cholecystitis 2. Metastatic breast CA (to lung) in remission P:1. Given absence of symptoms of acute coronary syndrome, decompensated CHF or malignant arrhythmia, may proceed with laparoscopic cholecystectomy from CV- standpoint without further testing 2. Continue empiric abx coverage for biliary will per ID 3. IVF, clear liquid diet, DVT and GI prophylaxis, analgesia as needed
[2018-01-29] MEDS ORDERED: DEXTROSE 5%-WATER - 50 ML IVPB ONE ×4 (01:05→19:46)
[2018-01-29] MEDS ORDERED: PIPERACILLIN/TAZOBACTAM 3.375 GM VIAL IVPB ONE ×4 (01:05→19:46)
[2018-01-29] MEDS: PIPERACILLIN/TAZOB 3.375 GM 3.375 GM in DEXTROSE 5%-WATER - 50 ML IVPB SCH ×3 (01:33→17:44)
[2018-01-29] MEDS: INSULIN SLIDING SCALE (NOVOLOG) 1 VIAL SQ SCH ×4 (06:16→23:13)
[2018-01-29] MEDS: HEPARIN NA (PORCINE) 5,000 UNITS/ML 1ML VIAL SQ SCH (06:17)
[2018-01-29] MEDS: POLYETHYLENE GLYCOL 3350 119 GM BTL PO SCH ×2 (09:25→22:05)
[2018-01-29] MEDS: PANTOPRAZOLE 40 MG TABLET (FP) PO SCH (09:25)
--- NOTE | 2018-01-29 09:42 | PN ---
Physical Exam: SUBJECTIVE: Patient seen and examined, no nausea , vomiting, abdominal pain or diarrhea, tolerating clears well. OBJECTIVE: Vital Signs Period Temp Pulse Resp BP Sys/Hemphill Pulse Ox Last 24 Hr 97.7 F-98.7 F 53-65 18-20 124-146/47-74 94 General: sitting in bed in no acute distress Chest: CTAB, no rales or wheezing Abdomen: soft, obese, NT throughout Extremities: no edema Laboratory Results - last 24 hr 01/28/18 01/28/18 01/28/18 11:33 17:03 21:41 POC Glucometer 110 73 110 01/29/18 06:14 POC Glucometer 89 Active Medications Generic Name Dose Route Start Last Admin Trade Name Freq PRN Reason Stop Dose Admin Acetaminophen 650 mg 01/27/18 05:00 Tylenol - PO Q4H PRN PAIN LEVEL 1-5 Heparin Sodium (Porcine) 5,000 unit 01/27/18 22:00 01/29/18 06:17 Heparin - SQ 5,000 unit TID [facility] Administration Piperacillin Sod/Tazobactam 50 mls @ 100 mls/hr 01/27/18 18:00 01/29/18 09:24 Sod 3.375 gm/ Dextrose IVPB 100 mls/hr Q8H-IV [facility] Administration Protocol Insulin Aspart 1 vial 01/27/18 07:00 01/29/18 06:16 Novolog Vial Sliding Scale - SQ Not Given ACHS [facility] Protocol Morphine Sulfate 2 mg 01/27/18 17:42 Morphine Injection - IVPUSH Q4H PRN PAIN LEVEL 6-10 Pantoprazole Sodium 40 mg 01/28/18 10:00 01/29/18 09:25 Protonix - PO 40 mg DAILY [facility] Administration Polyethylene Glycol 17 gm 01/27/18 12:45 01/29/18 09:25 Miralax (For Daily Use) - PO Not Given BID [facility] Promethazine HCl 12.5 mg 01/27/18 05:07 01/27/18 13:37 Phenergan Injection - IVPUSH 12.5 mg Q4H PRN Administration NAUSEA AND/OR VOMITING ASSESSMENT/PLAN: 72 yof with PMHx of metastatic breast ca to lung (dx in 2007, s/p chemo, radiation, mastectomy in 2008 currently in remission) and DM, admitted with abdominal pain, nausea, vomiting. -Abdominal pain/nausea/vomiting, gall bladder disease/Cholelithiasis +/- cholecystitis -Breast ca in remission -Diet controlled DM Plan: GI/Surgery/ID input appreciated. CT A/P neg for metastasis or concerns. Discussed with Dr. Arrington, plan for lap CCY tomorrow, NPO after midnight. Pre-op cardiac clearance. Zosyn day 3. Clears as tolerated. ISS. DVTPPX , hold heparin pre-op. dispo pending clinical improvement and plan as above, early next week of no concerns post CCY. plan discussed with patient and daughter at bedside in detail, all questions answered. Visit type - Emergency Visit Emergency Visit: No - New Patient This patient is new to me today: No - Critical Care Critical Care patient: No
--- NOTE | 2018-01-29 12:07 | PN ---
Progress Note, Physician Chief Complaint: abdominal pain History of Present Illness: 72 yo PMH breast cancer metastatic to lung (dx in 2008, s/p chemo, radiation, mastectomy in 2009 currently in remission), constipation, DM on insulin, recent gallstone pancreatitis, presents with abdominal pain since the previous night. Her abdominal pain has improved since this admission. no complaints. - Current Medication List Current Medications: Active Medications Acetaminophen (Tylenol -) 650 mg PO Q4H PRN PRN Reason: PAIN LEVEL 1-5 Heparin Sodium (Porcine) (Heparin -) 5,000 unit SQ TID [facility] Last Admin: 01/29/18 06:17 Dose: 5,000 unit Piperacillin Sod/Tazobactam (Sod 3.375 gm/ Dextrose) 50 mls @ 100 mls/hr IVPB Q8H-IV [facility]; Protocol Last Admin: 01/29/18 09:24 Dose: 100 mls/hr Lactated Ringer's (Lactated Ringers Solution) 1,000 ml in 1,000 mls @ 83 mls/ hr IV ASDIR [facility] Insulin Aspart (Novolog Vial Sliding Scale -) 1 vial SQ ACHS [facility]; Protocol Last Admin: 01/29/18 11:55 Dose: Not Given Morphine Sulfate (Morphine Injection -) 2 mg IVPUSH Q4H PRN PRN Reason: PAIN LEVEL 6-10 Pantoprazole Sodium (Protonix -) 40 mg PO DAILY [facility] Last Admin: 01/29/18 09:25 Dose: 40 mg Polyethylene Glycol (Miralax (For Daily Use) -) 17 gm PO BID [facility] Last Admin: 01/29/18 09:25 Dose: Not Given Promethazine HCl (Phenergan Injection -) 12.5 mg IVPUSH Q4H PRN PRN Reason: NAUSEA AND/OR VOMITING Last Admin: 01/27/18 13:37 Dose: 12.5 mg - Objective Vital Signs: Vital Signs Temperature 98.6 F 01/29/18 07:45 Pulse Rate 55 L 01/29/18 07:45 Respiratory Rate 20 01/29/18 07:45 Blood Pressure 142/74 01/29/18 07:45 O2 Sat by Pulse Oximetry (%) 94 L 01/28/18 22:00 Vital Signs Period Temp Pulse Resp BP Sys/Hemphill Pulse Ox Last 24 Hr 97.7 F-98.7 F 53-63 18-20 124-142/47-74 94 Intake & Output 01/28/18 01/29/18 01/29/18 23:59 07:59 15:59 Intake Total 50 50 Balance 50 50 Intake: IVPB 50 50 Other: Voiding Method Toilet # Unmeasured Voids Void 1 Constitutional: Yes: Well Nourished, No Distress, Calm Eyes: Yes: Conjunctiva Clear, EOM Intact HENT: Yes: Atraumatic, Normocephalic Neck: Yes: Supple, Trachea Midline Cardiovascular: Yes: Regular Rate and Rhythm, S1, S2 Respiratory: Yes: Regular, CTA Bilaterally Gastrointestinal: Yes: Normal Bowel Sounds, Soft ...Rectal Exam: Yes: Deferred Labs: CBC, BMP 01/28/18 06:00 01/28/18 06:00 INR, PTT INR 0.97 (0.82-1.09) 01/27/18 01:22 Problem List - Problems (1) Cholecystitis, unspecified Code(s): K81.9 - CHOLECYSTITIS, UNSPECIFIED (2) Abdominal pain in female patient Code(s): R10.9 - UNSPECIFIED ABDOMINAL PAIN (3) Acute gallstone pancreatitis Code(s): K85.1 - BILIARY ACUTE PANCREATITIS * DO NOT USE * (4) Borderline type 2 diabetes mellitus Code(s): R73.09 - OTHER ABNORMAL GLUCOSE (5) History of breast cancer Code(s): Z85.3 - PERSONAL HISTORY OF MALIGNANT NEOPLASM OF BREAST
--- NOTE | 2018-01-29 13:02 | PN ---
Progress Note, Physician History of Present Illness: Denies recurrent epigastric discomfort, nausea, emesis, fevers, reports green stools. - Current Medication List Current Medications: Active Medications Acetaminophen (Tylenol -) 650 mg PO Q4H PRN PRN Reason: PAIN LEVEL 1-5 Heparin Sodium (Porcine) (Heparin -) 5,000 unit SQ TID [facility] Last Admin: 01/29/18 06:17 Dose: 5,000 unit Piperacillin Sod/Tazobactam (Sod 3.375 gm/ Dextrose) 50 mls @ 100 mls/hr IVPB Q8H-IV [facility]; Protocol Last Admin: 01/29/18 09:24 Dose: 100 mls/hr Lactated Ringer's (Lactated Ringers Solution) 1,000 ml in 1,000 mls @ 83 mls/ hr IV ASDIR [facility] Insulin Aspart (Novolog Vial Sliding Scale -) 1 vial SQ ACHS [facility]; Protocol Last Admin: 01/29/18 11:55 Dose: Not Given Morphine Sulfate (Morphine Injection -) 2 mg IVPUSH Q4H PRN PRN Reason: PAIN LEVEL 6-10 Pantoprazole Sodium (Protonix -) 40 mg PO DAILY [facility] Last Admin: 01/29/18 09:25 Dose: 40 mg Polyethylene Glycol (Miralax (For Daily Use) -) 17 gm PO BID [facility] Last Admin: 01/29/18 09:25 Dose: Not Given Promethazine HCl (Phenergan Injection -) 12.5 mg IVPUSH Q4H PRN PRN Reason: NAUSEA AND/OR VOMITING Last Admin: 01/27/18 13:37 Dose: 12.5 mg - Objective Vital Signs: Vital Signs Temperature 98.6 F 01/29/18 07:45 Pulse Rate 55 L 01/29/18 07:45 Respiratory Rate 20 01/29/18 07:45 Blood Pressure 142/74 01/29/18 07:45 O2 Sat by Pulse Oximetry (%) 94 L 01/28/18 22:00 Constitutional: Yes: No Distress, Calm Neck: Yes: Supple Cardiovascular: Yes: Regular Rate and Rhythm Respiratory: Yes: Regular, CTA Bilaterally Gastrointestinal: Yes: Soft, Hypoactive Bowel Sounds Edema: No Labs: CBC, BMP 01/28/18 06:00 01/28/18 06:00 INR, PTT INR 0.97 (0.82-1.09) 01/27/18 01:22 Problem List - Problems (1) Biliary colic Code(s): K80.50 - CALCULUS OF BILE DUCT W/O CHOLANGITIS OR CHOLECYST W/O OBST (2) Pre-operative cardiovascular examination Code(s): Z01.810 - ENCOUNTER FOR PREPROCEDURAL CARDIOVASCULAR EXAMINATION (3) Cholecystitis, unspecified Code(s): K81.9 - CHOLECYSTITIS, UNSPECIFIED (4) Borderline type 2 diabetes mellitus Code(s): R73.09 - OTHER ABNORMAL GLUCOSE (5) History of breast cancer Code(s): Z85.3 - PERSONAL HISTORY OF MALIGNANT NEOPLASM OF BREAST Assessment/Plan 1. Pre-operative cardiovascular evaluation prior to laparoscopic cholecystectomy for biliary colic vs chronic cholecystitis 2. Metastatic breast CA (to lung) in remission P:1. Given absence of symptoms of acute coronary syndrome, decompensated CHF or malignant arrhythmia, may proceed with laparoscopic cholecystectomy from CV- standpoint without further testing 2. Continue empiric abx coverage for biliary will per ID 3. IVF, NPO after MN, DVT and GI prophylaxis, analgesia as needed, check c. diff toxin
--- NOTE | 2018-01-29 15:42 | PN ---
Progress Note, Physician History of Present Illness: Pt states she is doing well. Is having loose stools every time she urinates but denies abd cramping/pain. Remains afebrile, without other specific complaints. - Current Medication List Current Medications: Active Medications Acetaminophen (Tylenol -) 650 mg PO Q4H PRN PRN Reason: PAIN LEVEL 1-5 Heparin Sodium (Porcine) (Heparin -) 5,000 unit SQ TID [facility] Last Admin: 01/29/18 06:17 Dose: 5,000 unit Piperacillin Sod/Tazobactam (Sod 3.375 gm/ Dextrose) 50 mls @ 100 mls/hr IVPB Q8H-IV [facility]; Protocol Last Admin: 01/29/18 09:24 Dose: 100 mls/hr Lactated Ringer's (Lactated Ringers Solution) 1,000 ml in 1,000 mls @ 83 mls/ hr IV ASDIR [facility] Insulin Aspart (Novolog Vial Sliding Scale -) 1 vial SQ ACHS [facility]; Protocol Last Admin: 01/29/18 11:55 Dose: Not Given Morphine Sulfate (Morphine Injection -) 2 mg IVPUSH Q4H PRN PRN Reason: PAIN LEVEL 6-10 Pantoprazole Sodium (Protonix -) 40 mg PO DAILY [facility] Last Admin: 01/29/18 09:25 Dose: 40 mg Polyethylene Glycol (Miralax (For Daily Use) -) 17 gm PO BID [facility] Last Admin: 01/29/18 09:25 Dose: Not Given Promethazine HCl (Phenergan Injection -) 12.5 mg IVPUSH Q4H PRN PRN Reason: NAUSEA AND/OR VOMITING Last Admin: 01/27/18 13:37 Dose: 12.5 mg - Objective Vital Signs: Vital Signs Temperature 98.6 F 01/29/18 07:45 Pulse Rate 55 L 01/29/18 07:45 Respiratory Rate 20 01/29/18 07:45 Blood Pressure 142/74 01/29/18 07:45 O2 Sat by Pulse Oximetry (%) 94 L 01/28/18 22:00 Constitutional: Yes: No Distress, Calm Cardiovascular: Yes: Regular Rate and Rhythm Respiratory: Yes: Regular Gastrointestinal: Yes: Normal Bowel Sounds, Soft Neurological: Yes: Alert, Oriented Labs: CBC, BMP 01/28/18 06:00 01/28/18 06:00 INR, PTT INR 0.97 (0.82-1.09) 01/27/18 01:22 Problem List - Problems (1) Biliary colic Code(s): K80.50 - CALCULUS OF BILE DUCT W/O CHOLANGITIS OR CHOLECYST W/O OBST (2) Borderline type 2 diabetes mellitus Code(s): R73.09 - OTHER ABNORMAL GLUCOSE (3) History of breast cancer Code(s): Z85.3 - PERSONAL HISTORY OF MALIGNANT NEOPLASM OF BREAST (4) Cholecystitis, unspecified Code(s): K81.9 - CHOLECYSTITIS, UNSPECIFIED (5) Acute gallstone pancreatitis Code(s): K85.1 - BILIARY ACUTE PANCREATITIS * DO NOT USE * Assessment/Plan Pt with intermittent RUQ pain, hx of gallstone pancreatitis Cholecystitis Diarrhea -- continue empiric antibiotics for now -- stool for CDT ordered -- awaiting cholecystectomy continue monitor
[2018-01-30] MEDS: LACTATED RINGERS SOLUTION 1,000 ML/1,000 ML INFUS.BAG IV SCH ×2 (00:04→17:46)
[2018-01-30] MEDS: PIPERACILLIN/TAZOB 3.375 GM 3.375 GM in DEXTROSE 5%-WATER - 50 ML IVPB SCH ×3 (01:26→17:46)
[2018-01-30] MEDS: INSULIN SLIDING SCALE (NOVOLOG) 1 VIAL SQ SCH ×4 (06:34→21:47)
--- NOTE | 2018-01-30 08:04 | PN ---
Physical Exam: SUBJECTIVE: Patient seen and examined. No fevers, no abdominal pain. Scheduled for lap anu for tomorrow at 1.00pm, after getting EGD to R/O gastric ulcer today. OBJECTIVE: Vital Signs Period Temp Pulse Resp BP Sys/Hemphill Pulse Ox Last 24 Hr 98.2 F-98.9 F 57-65 20-20 137-151/69-75 97-97 GENERAL: The patient is awake, alert, and fully oriented, in no acute painful distress. LUNGS: Reduced Breath sounds R posteriorly, clear to auscultation bilaterally HEART: Regular rate and rhythm, S1, S2 ABDOMEN: Soft, non tender, nondistended, normoactive bowel sounds, absent murphys EXTREMITIES: 2+ pulses, warm, well-perfused, no edema. NEUROLOGICAL: AAox3. Normal tone and strength globally. Laboratory Results - last 24 hr 01/29/18 01/29/18 01/29/18 11:45 16:36 22:07 POC Glucometer 111 83 103 Active Medications Generic Name Dose Route Start Last Admin Trade Name Freq PRN Reason Stop Dose Admin Acetaminophen 650 mg 01/27/18 05:00 Tylenol - PO Q4H PRN PAIN LEVEL 1-5 Heparin Sodium (Porcine) 5,000 unit 01/27/18 22:00 01/29/18 06:17 Heparin - SQ 5,000 unit TID [facility] Administration Piperacillin Sod/Tazobactam 50 mls @ 100 mls/hr 01/27/18 18:00 01/30/18 01:26 Sod 3.375 gm/ Dextrose IVPB 100 mls/hr Q8H-IV [facility] Administration Protocol Lactated Ringer's 1,000 ml in 1,000 mls @ 83 mls/hr 01/30/18 00:01 01/30/18 00:04 Lactated Ringers Solution IV 83 mls/hr ASDIR [facility] Administration Insulin Aspart 1 vial 01/27/18 07:00 01/30/18 06:34 Novolog Vial Sliding Scale - SQ Not Given ACHS [facility] Protocol Pantoprazole Sodium 40 mg 01/28/18 10:00 01/29/18 09:25 Protonix - PO 40 mg DAILY [facility] Administration Polyethylene Glycol 17 gm 01/27/18 12:45 01/29/18 22:05 Miralax (For Daily Use) - PO Not Given BID [facility] Promethazine HCl 12.5 mg 01/27/18 05:07 01/27/18 13:37 Phenergan Injection - IVPUSH 12.5 mg Q4H PRN Administration NAUSEA AND/OR VOMITING Current Medications Acetaminophen (Tylenol -) 650 mg PO Q4H PRN PRN Reason: PAIN LEVEL 1-5 Heparin Sodium (Porcine) (Heparin -) 5,000 unit SQ TID [facility] Last Admin: 01/29/18 06:17 Dose: 5,000 unit Piperacillin Sod/Tazobactam (Sod 3.375 gm/ Dextrose) 50 mls @ 100 mls/hr IVPB Q8H-IV [facility]; Protocol Last Admin: 01/30/18 17:46 Dose: 100 mls/hr Lactated Ringer's (Lactated Ringers Solution) 1,000 ml in 1,000 mls @ 83 mls/ hr IV ASDIR [facility] Last Admin: 01/30/18 17:46 Dose: 83 mls/hr Insulin Aspart (Novolog Vial Sliding Scale -) 1 vial SQ ACHS [facility]; Protocol Last Admin: 01/30/18 21:47 Dose: Not Given Pantoprazole Sodium (Protonix -) 40 mg PO DAILY [facility] Last Admin: 01/30/18 09:40 Dose: Not Given Polyethylene Glycol (Miralax (For Daily Use) -) 17 gm PO BID [facility] Last Admin: 01/30/18 21:47 Dose: Not Given Promethazine HCl (Phenergan Injection -) 12.5 mg IVPUSH Q4H PRN PRN Reason: NAUSEA AND/OR VOMITING Last Admin: 01/27/18 13:37 Dose: 12.5 mg HIDA scan: No obstruction of common bile duct RUQ US: cholelithiasis, thickened gallbladder at 7mm, + edward sign EGD 01/30/18: Showed gastritis, no ulcer ASSESSMENT/PLAN: 72F w/ hx of metastatic breast ca to lung (dx in 2007, s/p chemo, radiation, mastectomy in 2009 currently in remission) and DM who presents with epigastric/ RUQ abdominal pain #abdominal pain [place] sign on presentation with positive imaging likely 2/2 [address] surgery [address] Dr Arrington on board, appreciate recs- forlap anu Tuesday GI consulted, Dr. Smalls, appreciate recs-HIDA scan done, EGD done NPO after midnight ID on board- Dr Anders- apprec recs zosyn 3.375mg (started 01/27/18) pain control with tylenol LR @ 83/hr promethazine 12.5mg Q4H PRN #DM DM- diet controlled BGM ACHS, ISS- has not needed much coverage #metastatic breast cancer in remission s/p R lobectomy not active issue last oncology appointment was in march of 2017. follows at [facility] #FEN LR @ 83/hr Monitor electrolytes and replete as needed NPO after midnight #ppx Pantoprazole on board Hold heparin sq #Dispo For likely cholecystectomy on Tuesday Visit type - Emergency Visit Emergency Visit: Yes ED Registration Date: 01/27/18 Care time: The patient presented to the Emergency Department on the above date and was hospitalized for further evaluation of their emergent condition. - New Patient This patient is new to me today: No - Critical Care Critical Care patient: No - Discharge Referral Referred to [facility] Med P.C.: No
--- NOTE | 2018-01-30 08:31 | PN ---
Progress Note, Physician History of Present Illness: Denies recurrent epigastric discomfort, nausea, emesis, fevers, underwent EGD showing mild gastritis. - Current Medication List Current Medications: Active Medications Acetaminophen (Tylenol -) 650 mg PO Q4H PRN PRN Reason: PAIN LEVEL 1-5 Heparin Sodium (Porcine) (Heparin -) 5,000 unit SQ TID [facility] Last Admin: 01/29/18 06:17 Dose: 5,000 unit Piperacillin Sod/Tazobactam (Sod 3.375 gm/ Dextrose) 50 mls @ 100 mls/hr IVPB Q8H-IV [facility]; Protocol Last Admin: 01/30/18 01:26 Dose: 100 mls/hr Lactated Ringer's (Lactated Ringers Solution) 1,000 ml in 1,000 mls @ 83 mls/ hr IV ASDIR [facility] Last Admin: 01/30/18 00:04 Dose: 83 mls/hr Insulin Aspart (Novolog Vial Sliding Scale -) 1 vial SQ ACHS [facility]; Protocol Last Admin: 01/30/18 06:34 Dose: Not Given Pantoprazole Sodium (Protonix -) 40 mg PO DAILY [facility] Last Admin: 01/29/18 09:25 Dose: 40 mg Polyethylene Glycol (Miralax (For Daily Use) -) 17 gm PO BID [facility] Last Admin: 01/29/18 22:05 Dose: Not Given Promethazine HCl (Phenergan Injection -) 12.5 mg IVPUSH Q4H PRN PRN Reason: NAUSEA AND/OR VOMITING Last Admin: 01/27/18 13:37 Dose: 12.5 mg - Objective Vital Signs: Vital Signs Temperature 98.2 F 01/30/18 06:00 Pulse Rate 57 L 01/30/18 06:00 Respiratory Rate 20 01/30/18 06:00 Blood Pressure 137/69 01/30/18 06:00 O2 Sat by Pulse Oximetry (%) 97 01/29/18 18:58 Labs: INR, PTT INR 0.97 (0.82-1.09) 01/27/18 01:22 Problem List - Problems (1) Biliary colic Code(s): K80.50 - CALCULUS OF BILE DUCT W/O CHOLANGITIS OR CHOLECYST W/O OBST (2) Pre-operative cardiovascular examination Code(s): Z01.810 - ENCOUNTER FOR PREPROCEDURAL CARDIOVASCULAR EXAMINATION (3) Cholecystitis, unspecified Code(s): K81.9 - CHOLECYSTITIS, UNSPECIFIED (4) Borderline type 2 diabetes mellitus Code(s): R73.09 - OTHER ABNORMAL GLUCOSE (5) History of breast cancer Code(s): Z85.3 - PERSONAL HISTORY OF MALIGNANT NEOPLASM OF BREAST Assessment/Plan 1. Pre-operative cardiovascular evaluation prior to laparoscopic cholecystectomy for biliary colic vs chronic cholecystitis 2. Metastatic breast CA (to lung) in remission 3. Mild gastritis P:1. Given absence of symptoms of acute coronary syndrome, decompensated CHF or malignant arrhythmia, may proceed with laparoscopic cholecystectomy from CV- standpoint without further testing 2. Continue empiric abx coverage for biliary will per ID 3. IVF, NPO after MN, DVT and GI prophylaxis, analgesia as needed, check c. diff toxin
[2018-01-30 08:53] LABS: BASO % 0.4 % (0-2.0); EOS % 2.9 % (0-4.5); HEMOGLOBIN 12.1 GM/dL (10.7-15.3); LYMPH % 42.1 % (8-40); MCHC 33.6 g/dl (32.0-36.0); MEAN CELL VOLUME 86.5 fl (80-96); MEAN PLT VOLUME 9.3 fl (7.5-11.1); MONO % 9.3 % (3.8-10.2); NEUT % 45.3 % (42.8-82.8); PLATELET COUNT 234 K/MM3 (134-434); RBC 4.16 M/mm3 (3.60-5.2); RDW 14.6 % (11.6-15.6); WHITE BLOOD COUNT 5.5 K/mm3 (4.0-10.0)
[2018-01-30 09:05] LABS: INR 1.16 (0.82-1.09); PROTHROMBIN TIME (PATIENT) 13.1 SEC (9.7-13.0)
[2018-01-30 09:07] LABS: ANION GAP 4 (8-16); BLOOD UREA NITROGEN 5 mg/dL (7-18); CHLORIDE 104 mmol/L (98-107); CO2 32 mmol/L (21-32); CREATININE 0.5 mg/dL (0.55-1.02); GLUCOSE,RANDOM 88 mg/dL (74-106); MAGNESIUM 1.9 mg/dL (1.8-2.4); PHOSPHOROUS 3.6 mg/dL (2.5-4.9); POTASSIUM 3.8 mmol/L (3.5-5.1); SODIUM 140 mmol/L (136-145)
[2018-01-30] MEDS: POLYETHYLENE GLYCOL 3350 119 GM BTL PO SCH ×2 (09:40→21:47)
[2018-01-30] MEDS: PANTOPRAZOLE 40 MG TABLET (FP) PO SCH (09:40)
[2018-01-30] MEDS ORDERED: PIPERACILLIN/TAZOBACTAM 3.375 GM VIAL IVPB ONE ×2 (09:45→17:32)
[2018-01-30] MEDS ORDERED: DEXTROSE 5%-WATER - 50 ML IVPB ONE ×2 (09:46→17:32)
--- NOTE | 2018-01-30 11:00 | PN ---
Progress Note, Physician History of Present Illness: stable no complaints patient for endoscopy today - Current Medication List Current Medications: Active Medications Acetaminophen (Tylenol -) 650 mg PO Q4H PRN PRN Reason: PAIN LEVEL 1-5 Heparin Sodium (Porcine) (Heparin -) 5,000 unit SQ TID [facility] Last Admin: 01/29/18 06:17 Dose: 5,000 unit Piperacillin Sod/Tazobactam (Sod 3.375 gm/ Dextrose) 50 mls @ 100 mls/hr IVPB Q8H-IV [facility]; Protocol Last Admin: 01/30/18 10:05 Dose: 100 mls/hr Lactated Ringer's (Lactated Ringers Solution) 1,000 ml in 1,000 mls @ 83 mls/ hr IV ASDIR [facility] Last Admin: 01/30/18 00:04 Dose: 83 mls/hr Insulin Aspart (Novolog Vial Sliding Scale -) 1 vial SQ ACHS [facility]; Protocol Last Admin: 01/30/18 06:34 Dose: Not Given Pantoprazole Sodium (Protonix -) 40 mg PO DAILY [facility] Last Admin: 01/30/18 09:40 Dose: Not Given Polyethylene Glycol (Miralax (For Daily Use) -) 17 gm PO BID [facility] Last Admin: 01/30/18 09:40 Dose: Not Given Promethazine HCl (Phenergan Injection -) 12.5 mg IVPUSH Q4H PRN PRN Reason: NAUSEA AND/OR VOMITING Last Admin: 01/27/18 13:37 Dose: 12.5 mg - Objective Vital Signs: Vital Signs Temperature 98.2 F 01/30/18 06:00 Pulse Rate 57 L 01/30/18 06:00 Respiratory Rate 20 01/30/18 06:00 Blood Pressure 137/69 01/30/18 06:00 O2 Sat by Pulse Oximetry (%) 97 01/29/18 18:58 Constitutional: Yes: No Distress, Calm Cardiovascular: Yes: Regular Rate and Rhythm Respiratory: Yes: Regular, CTA Bilaterally Gastrointestinal: Yes: Normal Bowel Sounds, Soft Musculoskeletal: Yes: WNL Extremities: Yes: WNL Neurological: Yes: Alert, Oriented Psychiatric: Yes: Alert, Oriented Labs: CBC, BMP 01/30/18 07:35 01/30/18 07:35 INR, PTT INR 1.16 (0.82-1.09) H 01/30/18 07:35 Assessment/Plan Problem List - Problems (1) Cholecystitis, unspecified Code(s): K81.9 - CHOLECYSTITIS, UNSPECIFIED (2) Abdominal pain in female patient Code(s): R10.9 - UNSPECIFIED ABDOMINAL PAIN (3) Acute gallstone pancreatitis Code(s): K85.1 - BILIARY ACUTE PANCREATITIS * DO NOT USE * (4) Borderline type 2 diabetes mellitus Code(s): R73.09 - OTHER ABNORMAL GLUCOSE (5) History of breast cancer Code(s): Z85.3 - PERSONAL HISTORY OF MALIGNANT NEOPLASM OF BREAST plan continue current mgmt endoscopy today followed by surgery rest as per the team
--- NOTE | 2018-01-30 11:25 | PN ---
Progress Note (short form) - Note Progress Note: Patient was seen and examined this morning. Plan is to delay today's scheduled surgery to allow for upper endoscopy to r/o any inflammatory causes of symptoms. Have rescheduled for tomorrow at 1pm and this was discussed with the patient, GI and anesthesia. Problem List - Problems (1) Cholecystitis, unspecified Assessment/Plan: 72yo female PMH DM metastatic breast CA (to lung) in remission, presenting with RUQ abdominal pain, history of gallstone pancreatitis with a plan for surgery but she did not followup. Chronic cholecystitis vs. biliary colic, CT scan of Abdomen/ Pelvis yesterday showed thickened gallbladder wall and a stone in the neck. Discussed findings with patient and family will obtain formal consent for surgery. Appreciste ID and GI evaluations. CleaR diet consider empiric IV antibiotics Appreciate Cardiology evaluation by Dr. Ojeda Adequate analgesia GI and DVT prophylaxis OR tentatively scheduled for surgery Tuesday at 12 noon Discussed with patient risks, benefits and alternatives of laparoscopic possible open cholecystectomy, including but not limited to bleeding, infection , injury to adjacent structures, leak or injury, intraabdominal abscess, need for further procedures, ; alternatives include antibiotics, delayed or no surgery - risks of this include failure of nonoperative therapy, perforation, sepsis, recurrence, . Patient desires to proceed with operation - will take to OR for above. Code(s): K81.9 - CHOLECYSTITIS, UNSPECIFIED (2) Abdominal pain in female patient Code(s): R10.9 - UNSPECIFIED ABDOMINAL PAIN (3) Acute gallstone pancreatitis Code(s): K85.1 - BILIARY ACUTE PANCREATITIS * DO NOT USE * (4) Borderline type 2 diabetes mellitus Code(s): R73.09 - OTHER ABNORMAL GLUCOSE (5) History of breast cancer Code(s): Z85.3 - PERSONAL HISTORY OF MALIGNANT NEOPLASM OF BREAST
[2018-01-30] MEDS ORDERED: PROPOFOL 20 ML ONE ×2 (11:36)
--- NOTE | 2018-01-30 12:16 | PROC ---
Endoscopy Procedure Endoscopy procedure completed. Please see scanned procedure report. Mild gastritis, otherwise normal EGD
--- NOTE | 2018-01-30 17:18 | PN ---
Teaching Attending Note Name of Resident: Consuelo Najera ATTENDING PHYSICIAN STATEMENT I saw and evaluated the patient. I reviewed the resident's note and discussed the case with the resident. I agree with the resident's findings and plan as documented with exceptions below. SUBJECTIVE: Patient seen and examined. no nausea, vomiting or abdominal pain. Tolerating clears well. Left arm swelling improved. OBJECTIVE: Vital Signs Period Temp Pulse Resp BP Sys/Hemphill Pulse Ox Last 24 Hr 97.6 F-98.9 F 57-81 16-21 127-145/51-78 97-100 Intake & Output 01/27/18 01/28/18 01/29/18 01/30/18 23:59 23:59 23:59 23:59 Intake Total 950 1580 1131 550 Balance 950 1580 1131 550 Weight 185 lb 11.2 oz General: sitting in bed in no acute distress Abdomen: soft, obese, NT Extremities: Left antecubital fossa superficial thrombophlebitis, improved exam and tenderness Home Medications Medication Instructions Recorded Esomeprazole Magnesium [Nexium 20 mg PO DAILY #30 capsule. 01/19/18 24Hr] Active Medications Acetaminophen (Tylenol -) 650 mg PO Q4H PRN PRN Reason: PAIN LEVEL 1-5 Heparin Sodium (Porcine) (Heparin -) 5,000 unit SQ TID [facility] Last Admin: 01/29/18 06:17 Dose: 5,000 unit Piperacillin Sod/Tazobactam (Sod 3.375 gm/ Dextrose) 50 mls @ 100 mls/hr IVPB Q8H-IV [facility]; Protocol Last Admin: 01/30/18 10:05 Dose: 100 mls/hr Lactated Ringer's (Lactated Ringers Solution) 1,000 ml in 1,000 mls @ 83 mls/ hr IV ASDIR [facility] Last Admin: 01/30/18 00:04 Dose: 83 mls/hr Insulin Aspart (Novolog Vial Sliding Scale -) 1 vial SQ ACHS [facility]; Protocol Last Admin: 01/30/18 12:08 Dose: Not Given Pantoprazole Sodium (Protonix -) 40 mg PO DAILY [facility] Last Admin: 01/30/18 09:40 Dose: Not Given Polyethylene Glycol (Miralax (For Daily Use) -) 17 gm PO BID [facility] Last Admin: 01/30/18 09:40 Dose: Not Given Promethazine HCl (Phenergan Injection -) 12.5 mg IVPUSH Q4H PRN PRN Reason: NAUSEA AND/OR VOMITING Last Admin: 01/27/18 13:37 Dose: 12.5 mg Laboratory Results - last 24 hr 01/29/18 01/30/18 01/30/18 22:07 07:35 07:35 WBC 5.5 RBC 4.16 Hgb 12.1 Hct 36.0 MCV 86.5 MCH 29.0 MCHC 33.6 RDW 14.6 Plt Count 234 MPV 9.3 Absolute Neuts (auto) 2.5 Neutrophils % 45.3 Lymphocytes % 42.1 H Monocytes % 9.3 Eosinophils % 2.9 Basophils % 0.4 Nucleated RBC % 0 PT with INR INR Sodium 140 Potassium 3.8 Chloride 104 Carbon Dioxide 32 Anion Gap 4 L BUN 5 L Creatinine 0.5 L POC Glucometer 103 Random Glucose 88 Calcium 9.0 Phosphorus 3.6 Magnesium 1.9 01/30/18 07:35 WBC RBC Hgb Hct MCV MCH MCHC RDW Plt Count MPV Absolute Neuts (auto) Neutrophils % Lymphocytes % Monocytes % Eosinophils % Basophils % Nucleated RBC % PT with INR 13.10 H INR 1.16 H Sodium Potassium Chloride Carbon Dioxide Anion Gap BUN Creatinine POC Glucometer Random Glucose Calcium Phosphorus Magnesium ASSESSMENT AND PLAN: 72 yof with PMHx of metastatic breast ca to lung (dx in 2007, s/p chemo, radiation, mastectomy in 2008 currently in remission) and DM, admitted with abdominal pain, nausea, vomiting. -Abdominal pain/nausea/vomiting, gall bladder disease/Cholelithiasis +/- cholecystitis -Breast ca in remission -Diet controlled DM Plan: GI/Surgery/ID input appreciated. CT A/P neg for metastasis or concerns. s/p EGD today non concerning. Plan for lap CCY tomorrow, NPO after midnight. Cardiology input noted. Zosyn day 4. Clears as tolerated. ISS. DVTPPX , hold heparin pre-op. dispo in 24 hours post CCY if no concerns. plan discussed with patient and family at bedside in detail, all questions answered.
[2018-01-30] MEDS ORDERED: INSULIN (NOVOLOG) ASPART 100 UNITS/ML 10ML VIAL ONE (20:59)
[2018-01-31] MEDS ORDERED: PIPERACILLIN/TAZOBACTAM 3.375 GM VIAL IVPB ONE ×2 (01:14→09:35)
[2018-01-31] MEDS ORDERED: DEXTROSE 5%-WATER - 50 ML IVPB ONE ×2 (01:15→09:35)
[2018-01-31] MEDS: PIPERACILLIN/TAZOB 3.375 GM 3.375 GM in DEXTROSE 5%-WATER - 50 ML IVPB SCH ×2 (01:31→09:39)
[2018-01-31] MEDS: INSULIN SLIDING SCALE (NOVOLOG) 1 VIAL SQ SCH ×4 (06:15→22:16)
[2018-01-31 06:50] LABS: BASO % 0.4 % (0-2.0); HEMATOCRIT 35.4 % (32.4-45.2); HEMOGLOBIN 11.7 GM/dL (10.7-15.3); LYMPH % 36.3 % (8-40); MCH 28.7 pg (25.7-33.7); MCHC 33.1 g/dl (32.0-36.0); MEAN CELL VOLUME 86.7 fl (80-96); MEAN PLT VOLUME 8.7 fl (7.5-11.1); MONO % 8.1 % (3.8-10.2); NEUT % 52.2 % (42.8-82.8); PLATELET COUNT 211 K/MM3 (134-434); RBC 4.08 M/mm3 (3.60-5.2); RDW 14.6 % (11.6-15.6); WHITE BLOOD COUNT 6.2 K/mm3 (4.0-10.0)
[2018-01-31 07:59] LABS: CHLORIDE 104 mmol/L (98-107); POTASSIUM 3.6 mmol/L (3.5-5.1); SODIUM 141 mmol/L (136-145)
--- NOTE | 2018-01-31 08:28 | PN ---
Progress Note, Physician History of Present Illness: Denies recurrent epigastric discomfort, nausea, emesis, fevers, underwent EGD showing mild gastritis. - Current Medication List Current Medications: Active Medications Acetaminophen (Tylenol -) 650 mg PO Q4H PRN PRN Reason: PAIN LEVEL 1-5 Heparin Sodium (Porcine) (Heparin -) 5,000 unit SQ TID JEREMIAS Last Admin: 01/29/18 06:17 Dose: 5,000 unit Piperacillin Sod/Tazobactam (Sod 3.375 gm/ Dextrose) 50 mls @ 100 mls/hr IVPB Q8H-IV JEREMIAS; Protocol Last Admin: 01/31/18 01:31 Dose: 100 mls/hr Lactated Ringer's (Lactated Ringers Solution) 1,000 ml in 1,000 mls @ 83 mls/ hr IV ASDIR [facility] Last Admin: 01/30/18 17:46 Dose: 83 mls/hr Insulin Aspart (Novolog Vial Sliding Scale -) 1 vial SQ ACHS [facility]; Protocol Last Admin: 01/31/18 06:15 Dose: Not Given Pantoprazole Sodium (Protonix -) 40 mg PO DAILY [facility] Last Admin: 01/30/18 09:40 Dose: Not Given Polyethylene Glycol (Miralax (For Daily Use) -) 17 gm PO BID [facility] Last Admin: 01/30/18 21:47 Dose: Not Given Promethazine HCl (Phenergan Injection -) 12.5 mg IVPUSH Q4H PRN PRN Reason: NAUSEA AND/OR VOMITING Last Admin: 01/27/18 13:37 Dose: 12.5 mg - Objective Vital Signs: Vital Signs Temperature 98 F 01/31/18 06:00 Pulse Rate 58 L 01/31/18 06:00 Respiratory Rate 20 01/31/18 06:00 Blood Pressure 140/70 01/31/18 06:00 O2 Sat by Pulse Oximetry (%) 94 L 01/30/18 21:00 Constitutional: Yes: No Distress, Calm Neck: Yes: Supple Cardiovascular: Yes: Regular Rate and Rhythm Respiratory: Yes: Regular, CTA Bilaterally Gastrointestinal: Yes: Normal Bowel Sounds, Soft Edema: No Labs: CBC, BMP 01/31/18 06:00 01/31/18 06:00 INR, PTT INR 1.16 (0.82-1.09) H 01/30/18 07:35 Problem List - Problems (1) Biliary colic Code(s): K80.50 - CALCULUS OF BILE DUCT W/O CHOLANGITIS OR CHOLECYST W/O OBST (2) Pre-operative cardiovascular examination Code(s): Z01.810 - ENCOUNTER FOR PREPROCEDURAL CARDIOVASCULAR EXAMINATION (3) Cholecystitis, unspecified Code(s): K81.9 - CHOLECYSTITIS, UNSPECIFIED (4) Borderline type 2 diabetes mellitus Code(s): R73.09 - OTHER ABNORMAL GLUCOSE (5) History of breast cancer Code(s): Z85.3 - PERSONAL HISTORY OF MALIGNANT NEOPLASM OF BREAST Assessment/Plan 1. Pre-operative cardiovascular evaluation prior to laparoscopic cholecystectomy for biliary colic vs chronic cholecystitis 2. Metastatic breast CA (to lung) in remission 3. Mild gastritis P:1. Given absence of symptoms of acute coronary syndrome, decompensated CHF or malignant arrhythmia, may proceed with laparoscopic cholecystectomy from CV- standpoint without further testing 2. Continue empiric abx coverage for biliary will per ID 3. IVF, NPO after MN, DVT and GI prophylaxis, analgesia as needed, check c. diff toxin
[2018-01-31 08:45] LABS: ALBUMIN 3.3 g/dl (3.4-5.0); ALK PHOS 65 U/L (45-117); ANION GAP 10 (8-16); BILIRUBIN,TOTAL 0.9 mg/dL (0.2-1.0); BLOOD UREA NITROGEN 5 mg/dL (7-18); CALCIUM 8.5 mg/dL (8.5-10.1); CO2 27 mmol/L (21-32); CREATININE 0.6 mg/dL (0.55-1.02); GLUCOSE,RANDOM 92 mg/dL (74-106); MAGNESIUM 1.8 mg/dL (1.8-2.4); PHOSPHOROUS 3.5 mg/dL (2.5-4.9); SGOT/AST 17 U/L (15-37); SGPT/ALT 28 U/L (12-78); TOT PROT 6.6 g/dl (6.4-8.2)
[2018-01-31] MEDS: PANTOPRAZOLE 40 MG TABLET (FP) PO SCH (09:42)
[2018-01-31] MEDS: POLYETHYLENE GLYCOL 3350 119 GM BTL PO SCH ×2 (09:42→22:11)
--- NOTE | 2018-01-31 10:42 | PN ---
Physical Exam: SUBJECTIVE: Patient seen and examined. No fevers or abdominal pain overnight. Is scheduled for lap anu today. EGD yesterday showed mild gastritis. OBJECTIVE: Vital Signs Period Temp Pulse Resp BP Sys/Hemphill Pulse Ox Last 24 Hr 97.6 F-98.6 F 58-71 16-21 127-151/51-77 94-100 Vital Signs Temp 97.7 F 01/31/18 10:00 Pulse 56 L 01/31/18 10:00 Resp 20 01/31/18 10:00 BP 150/70 01/31/18 10:00 Pulse Ox 94 L 01/31/18 09:00 Intake & Output 01/30/18 01/31/18 01/31/18 23:59 11:59 23:59 Intake Total 1765 631 Balance 1765 631 Intake: IV 1315 581 LACTATED RINGERS SOLUTION 1315 581 1,000 ml In 1,000 ml @ 83 mls/hr IV ASDIR JEREMIAS Rx #:[id number] IVPB 100 50 Oral 350 Other: Voiding Method Toilet Toilet # Unmeasured Voids Void 1 GENERAL: The patient is awake, alert, and fully oriented, in no acute distress. LUNGS: Breath sounds reduced in R lung base , clear to auscultation bilaterally HEART: Regular rate and rhythm, S1, S2 without murmur ABDOMEN: Soft, nontender, nondistended, normoactive bowel sounds. No epigastric tenderness, no RUQ tenderness, negative murphys sign EXTREMITIES: 2+ pulses, warm, well-perfused, no edema. NEUROLOGICAL: AAOx3, Normal tone and muscle strength globally. Laboratory Results - last 24 hr 01/30/18 01/31/18 01/31/18 21:44 06:00 06:00 WBC 6.2 RBC 4.08 Hgb 11.7 Hct 35.4 MCV 86.7 MCH 28.7 MCHC 33.1 RDW 14.6 Plt Count 211 MPV 8.7 Absolute Neuts (auto) 3.2 Neutrophils % 52.2 Lymphocytes % 36.3 Monocytes % 8.1 Eosinophils % 3.0 Basophils % 0.4 Nucleated RBC % 0 Sodium 141 Potassium 3.6 Chloride 104 Carbon Dioxide 27 Anion Gap 10 BUN 5 L Creatinine 0.6 Creat Clearance w eGFR > 60 POC Glucometer 90 Random Glucose 92 Calcium 8.5 Phosphorus 3.5 Magnesium 1.8 Total Bilirubin 0.9 D AST 17 ALT 28 Alkaline Phosphatase 65 Total Protein 6.6 Albumin 3.3 L 01/31/18 06:13 WBC RBC Hgb Hct MCV MCH MCHC RDW Plt Count MPV Absolute Neuts (auto) Neutrophils % Lymphocytes % Monocytes % Eosinophils % Basophils % Nucleated RBC % Sodium Potassium Chloride Carbon Dioxide Anion Gap BUN Creatinine Creat Clearance w eGFR POC Glucometer 94 Random Glucose Calcium Phosphorus Magnesium Total Bilirubin AST ALT Alkaline Phosphatase Total Protein Albumin Active Medications Generic Name Dose Route Start Last Admin Trade Name Freq PRN Reason Stop Dose Admin Acetaminophen 650 mg 01/27/18 05:00 Tylenol - PO Q4H PRN PAIN LEVEL 1-5 Heparin Sodium (Porcine) 5,000 unit 01/27/18 22:00 01/29/18 06:17 Heparin - SQ 5,000 unit TID JEREMIAS Administration Piperacillin Sod/Tazobactam 50 mls @ 100 mls/hr 01/27/18 18:00 01/31/18 09:39 Sod 3.375 gm/ Dextrose IVPB 100 mls/hr Q8H-IV JEREMIAS Administration Protocol Lactated Ringer's 1,000 ml in 1,000 mls @ 83 mls/hr 01/30/18 00:01 01/30/18 17:46 Lactated Ringers Solution IV 83 mls/hr ASDIR JEREMIAS Administration Insulin Aspart 1 vial 01/27/18 07:00 01/31/18 06:15 Novolog Vial Sliding Scale - SQ Not Given ACHS JEREMIAS Protocol Pantoprazole Sodium 40 mg 01/28/18 10:00 01/31/18 09:42 Protonix - PO Not Given DAILY JEREMIAS Polyethylene Glycol 17 gm 01/27/18 12:45 01/31/18 09:42 Miralax (For Daily Use) - PO Not Given BID JEREMIAS Promethazine HCl 12.5 mg 01/27/18 05:07 01/27/18 13:37 Phenergan Injection - IVPUSH 12.5 mg Q4H PRN Administration NAUSEA AND/OR VOMITING HIDA scan: No obstruction of common bile duct RUQ US: cholelithiasis, thickened gallbladder at 7mm, + edward sign EGD 01/30/18: Showed gastritis, no ulcer ASSESSMENT/PLAN: 72F w/ hx of metastatic breast ca to lung (dx in 2007, s/p chemo, radiation, mastectomy in 2008 currently in remission) and DM who presents with epigastric/ RUQ abdominal pain #cholelithiasis [place] sign on presentation with positive imaging surgery consulted Dr Arrington on board, appreciate recs- for lap anu today GI consulted, Dr. Smalls, appreciate recs-HIDA scan done, EGD done NPO after midnight ID on board- Dr Anders- apprec recs zosyn 3.375mg (started 01/27/18) pain control with tylenol LR @ 83/hr promethazine 12.5mg Q4H PRN #DM DM- diet controlled BGM ACHS, ISS- has not needed much coverage #metastatic breast cancer in remission s/p R lobectomy not active issue last oncology appointment was in march of 2017. follows at [facility] #FEN LR @ 83/hr Monitor electrolytes and replete as needed NPO after midnight #ppx Pantoprazole on board Hold heparin sq #Dispo For lap cholecystectomy today Visit type - Emergency Visit Emergency Visit: Yes ED Registration Date: 01/27/18 Care time: The patient presented to the Emergency Department on the above date and was hospitalized for further evaluation of their emergent condition. - New Patient This patient is new to me today: No - Critical Care Critical Care patient: No - Discharge Referral [facility]erred to [facility] Med P.C.: No
[2018-01-31] MEDS ORDERED: MIDAZOLAM HCL 2 MG/2 ML SINGLE DOSE VIAL ONE (12:41)
[2018-01-31] MEDS ORDERED: NEOSTIGMINE METHYLSULFATE 0.5 MG/ML - 10 ML MDV ONE (13:28)
[2018-01-31] MEDS ORDERED: GLYCOPYRROLATE 0.2 MG/1 ML VIAL ONE (13:28)
--- NOTE | 2018-01-31 13:32 | PN ---
Progress Note, Physician History of Present Illness: stable no new issues - Current Medication List Current Medications: Active Medications Acetaminophen (Tylenol -) 650 mg PO Q4H PRN PRN Reason: PAIN LEVEL 1-5 Heparin Sodium (Porcine) (Heparin -) 5,000 unit SQ TID [facility] Last Admin: 01/29/18 06:17 Dose: 5,000 unit Piperacillin Sod/Tazobactam (Sod 3.375 gm/ Dextrose) 50 mls @ 100 mls/hr IVPB Q8H-IV JEREMIAS; Protocol Last Admin: 01/31/18 09:39 Dose: 100 mls/hr Lactated Ringer's (Lactated Ringers Solution) 1,000 ml in 1,000 mls @ 83 mls/ hr IV ASDIR [facility] Last Admin: 01/30/18 17:46 Dose: 83 mls/hr Insulin Aspart (Novolog Vial Sliding Scale -) 1 vial SQ ACHS [facility]; Protocol Last Admin: 01/31/18 06:15 Dose: Not Given Pantoprazole Sodium (Protonix -) 40 mg PO DAILY [facility] Last Admin: 01/31/18 09:42 Dose: Not Given Polyethylene Glycol (Miralax (For Daily Use) -) 17 gm PO BID [facility] Last Admin: 01/31/18 09:42 Dose: Not Given Promethazine HCl (Phenergan Injection -) 12.5 mg IVPUSH Q4H PRN PRN Reason: NAUSEA AND/OR VOMITING Last Admin: 01/27/18 13:37 Dose: 12.5 mg - Objective Vital Signs: Vital Signs Temperature 97.7 F 01/31/18 10:00 Pulse Rate 56 L 01/31/18 10:00 Respiratory Rate 20 01/31/18 10:00 Blood Pressure 150/70 01/31/18 10:00 O2 Sat by Pulse Oximetry (%) 94 L 01/31/18 09:00 Constitutional: Yes: No Distress, Calm Cardiovascular: Yes: Regular Rate and Rhythm Respiratory: Yes: Regular, CTA Bilaterally Gastrointestinal: Yes: Normal Bowel Sounds, Soft Musculoskeletal: Yes: WNL Extremities: Yes: WNL Neurological: Yes: Alert, Oriented Psychiatric: Yes: Alert, Oriented Labs: CBC, BMP 01/31/18 06:00 01/31/18 06:00 INR, PTT INR 1.16 (0.82-1.09) H 01/30/18 07:35 Assessment/Plan Problem List - Problems (1) Cholecystitis, unspecified Code(s): K81.9 - CHOLECYSTITIS, UNSPECIFIED (2) Abdominal pain in female patient Code(s): R10.9 - UNSPECIFIED ABDOMINAL PAIN (3) Acute gallstone pancreatitis Code(s): K85.1 - BILIARY ACUTE PANCREATITIS * DO NOT USE * (4) Borderline type 2 diabetes mellitus Code(s): R73.09 - OTHER ABNORMAL GLUCOSE (5) History of breast cancer Code(s): Z85.3 - PERSONAL HISTORY OF MALIGNANT NEOPLASM OF BREAST plan stable doing well for surgery
[2018-01-31] MEDS ORDERED: BUPIVACAINE HCL/PF 0.5% (5MG/ML) 10 ML VIAL ONE (13:36)
[2018-01-31] MEDS ORDERED: BUPIVACAINE HCL/PF 0.5% (5MG/ML) 10 ML VIAL IJ ONE (13:46)
--- NOTE | 2018-01-31 14:11 | OP ---
Operative Note - Note: Operative Date: 01/31/18 Pre-Operative Diagnosis: cholecystitis Operation: Laparoscopic Cholecystetctomy Findings: distended gallbladder with stone, critical view identified, all counts were correct Post-Operative Diagnosis: Same as Pre-op Surgeon: Atif Arrington Civil Engineering Design Draftsperson: Jim Tom Anesthesiologist/GUSSET MAKER: Ella Delvalle Anesthesia: General, Local (0.5% marcaine 20ml) Specimens Removed: gallbladder and stone Estimated Blood Loss (mls): 20 Fluid Volume Replaced (mls): 800 Operative Report Dictated: Yes
[2018-01-31] MEDS ORDERED: ONDANSETRON 4 MG/2 ML VIAL IVPUSH PRN (14:13)
[2018-01-31] MEDS ORDERED: LACTATED RINGERS SOLUTION 1,000 ML IV SCH (14:15)
[2018-01-31] MEDS ORDERED: ACETAMINOPHEN 325 MG TABLET (FP) PO PRN ×2 (14:51→16:14)
[2018-01-31] MEDS ORDERED: PROMETHAZINE HCL 25 MG/1 ML VIAL IVPUSH PRN (14:51)
[2018-01-31] MEDS ORDERED: morphine SULFATE 4 MG/ML VIAL IVPUSH PRN (16:06)
[2018-01-31] MEDS ORDERED: LACTATED RINGERS SOLUTION 1,000 ML/1,000 ML INFUS.BAG IV SCH (16:15)
[2018-01-31] MEDS ORDERED: ONDANSETRON 4 MG/2 ML VIAL ONE (16:40)
--- NOTE | 2018-01-31 17:27 | PN ---
Teaching Attending Note Name of Resident: Consuelo Najera ATTENDING PHYSICIAN STATEMENT I saw and evaluated the patient. I reviewed the resident's note and discussed the case with the resident. I agree with the resident's findings and plan as documented. SUBJECTIVE:mild nausea since coming back from surgery. no appetite. denies CP, SOB, fever, chills, V/C/D OBJECTIVE: Last Vital Signs Temp Pulse Resp BP Pulse Ox 100 F H 79 14 119/73 100 01/31/18 14:45 01/31/18 16:00 01/31/18 16:00 01/31/18 16:00 01/31/18 16:00 General mildly lethargic CV S1 S2 RRR no murmur/rub/gallop Lungs CTA anteriorly Abdomen soft diffusely tender. bandages x3 c/d/i. ASSESSMENT AND PLAN: 72 yo F with PMHx of metastatic breast ca to lung (dx in 2007, s/p chemo, radiation, mastectomy in 2008 currently in remission) and DM, admitted with abdominal pain, nausea, vomiting. 1. Biliary colic- s/p laprascopic cholecytitis 01/31. advance diet. can d/c zosyn. f/u surgery recommendations. 2. DM- controlled. unclear if she takes medications at home. has not required any coverage here. cont diet control 3. Breast cancer s/p resection 4. DVT ppx- hep sq 5. d/c planning in the AM. spoke wtih daughter present at bedside. all questions answered
[2018-01-31] MEDS ORDERED: PIPERACILLIN/TAZOB 3.375 GM 3.375 GM in DEXTROSE 5%-WATER - 50 ML IVPB SCH (18:00)
[2018-01-31] MEDS ORDERED: IBUPROFEN 600 MG TABLET (FP) PO PRN (19:07)
[2018-01-31] MEDS: HEPARIN NA (PORCINE) 5,000 UNITS/ML 1ML VIAL SQ SCH (22:11)
[2018-02-01] MEDS: INSULIN SLIDING SCALE (NOVOLOG) 1 VIAL SQ SCH ×5 (06:22→21:18)
[2018-02-01] MEDS: HEPARIN NA (PORCINE) 5,000 UNITS/ML 1ML VIAL SQ SCH ×4 (06:22→21:17)
[2018-02-01] MEDS ORDERED: PHENOL 177 ML SPRAY BOTTLE MM PRN (07:11)
--- NOTE | 2018-02-01 08:38 | DS ---
Physical Exam: SUBJECTIVE: Patient seen and examined. No nausea or vomiting overnight. Tolerating PO. Still feels reluctant to receive pain medications despite being offered by the nurses. No more dizzy, says pain is improved. Yet to pass gas. Sore throat improving with lozenges. OBJECTIVE: Vital Signs Temp 98.8 F 02/02/18 08:00 Pulse 90 02/01/18 20:00 Resp 18 02/02/18 09:00 BP 123/76 02/02/18 08:00 Pulse Ox 95 02/02/18 09:00 Intake & Output 02/01/18 02/02/18 02/02/18 23:59 11:59 23:59 Intake Total 1000 Balance 1000 Intake: IV 1000 LACTATED RINGERS SOLUTION 1000 1,000 ml In 1,000 ml @ 83 mls/hr IV ASDIR [facility] Rx #:[id number] Other: Voiding Method Toilet Toilet Intake & Output 01/30/18 01/31/18 02/01/18 02/02/18 23:59 23:59 23:59 23:59 Intake Total 1965 2713 2110 Output Total 2415 Balance 6573 372 4326 PHYSICAL EXAM GENERAL: The patient is awake, alert, and fully oriented, in no acute painful distress. LUNGS: R breast absent (post mastectomy) Breath sounds equal, clear to auscultation bilaterally, no wheezes, no crackles HEART: Regular rate and rhythm, S1, S2 without murmur ABDOMEN: surgical puncture wounds noted- periumbilical, R infraumbilical and 2 R supraumbilical. Soft, mild tenderness to palpation, normoactive bowel sounds EXTREMITIES: 2+ pulses, warm, well-perfused, no edema. NEUROLOGICAL: AAOx3, ambulates without assistance. Normal speech. LABS Laboratory Last Values WBC 8.8 K/mm3 (4.0-10.0) D 02/01/18 07:09 RBC 4.16 M/mm3 (3.60-5.2) 02/01/18 07:09 Hgb 12.0 GM/dL (10.7-15.3) 02/01/18 07:09 Hct 35.9 % (32.4-45.2) 02/01/18 07:09 MCV 86.4 fl (80-96) 02/01/18 07:09 MCH 28.9 pg (25.7-33.7) 02/01/18 07:09 MCHC 33.4 g/dl (32.0-36.0) 02/01/18 07:09 RDW 14.7 % (11.6-15.6) 02/01/18 07:09 Plt Count 216 K/MM3 (134-434) 02/01/18 07:09 MPV 9.3 fl (7.5-11.1) 02/01/18 07:09 Absolute Neuts (auto) 5.7 # 02/01/18 07:09 Neutrophils % 65.2 % (42.8-82.8) D 02/01/18 07:09 Lymphocytes % 25.5 % (8-40) D 02/01/18 07:09 Monocytes % 9.1 % (3.8-10.2) 02/01/18 07:09 Eosinophils % 0.1 % (0-4.5) D 02/01/18 07:09 Basophils % 0.1 % (0-2.0) 02/01/18 07:09 Nucleated RBC % 0 % (0-0) 02/01/18 07:09 PT with INR 13.10 SEC (9.7-13.0) H 01/30/18 07:35 INR 1.16 (0.82-1.09) H 01/30/18 07:35 PTT (Actin FS) 26.4 SECONDS (26.9-34.4) L 01/27/18 01:22 Sodium 141 mmol/L (136-145) 02/01/18 07:09 Potassium 3.8 mmol/L (3.5-5.1) 02/01/18 07:09 Chloride 103 mmol/L (98-107) 02/01/18 07:09 Carbon Dioxide 28 mmol/L (21-32) 02/01/18 07:09 Anion Gap 10 (8-16) 02/01/18 07:09 BUN 7 mg/dL (7-18) 02/01/18 07:09 Creatinine 0.5 mg/dL (0.55-1.02) L 02/01/18 07:09 Creat Clearance w eGFR > 60 (>60) 02/01/18 07:09 POC Glucometer 94 UNITS (80-120) 01/31/18 06:13 Random Glucose 88 mg/dL (74-106) 02/01/18 07:09 Calcium 8.5 mg/dL (8.5-10.1) 02/01/18 07:09 Phosphorus 3.3 mg/dL (2.5-4.9) 02/01/18 07:09 Magnesium 1.6 mg/dL (1.8-2.4) L 02/01/18 07:09 Total Bilirubin 0.4 mg/dL (0.2-1.0) D 02/01/18 07:09 AST 31 U/L (15-37) 02/01/18 07:09 ALT 45 U/L (12-78) 02/01/18 07:09 Alkaline Phosphatase 60 U/L (45-117) 02/01/18 07:09 Creatine Kinase 71 IU/L (26-192) 01/27/18 01:22 Troponin I < 0.02 ng/ml (0.00-0.05) 01/27/18 01:22 Total Protein 6.2 g/dl (6.4-8.2) L 02/01/18 07:09 Albumin 2.9 g/dl (3.4-5.0) L 02/01/18 07:09 Lipase 169 U/L (73-393) 01/27/18 01:22 Urine Color Straw 01/27/18 04:50 Urine Appearance Clear 01/27/18 04:50 Urine pH 5.0 (5.0-8.0) 01/27/18 04:50 Ur Specific Critz 1.016 (1.001-1.035) 01/27/18 04:50 Urine Protein Negative (NEGATIVE) 01/27/18 04:50 Urine Glucose (UA) Negative (NEGATIVE) 01/27/18 04:50 Urine Ketones Negative (NEGATIVE) 01/27/18 04:50 Urine Blood Negative (NEGATIVE) 01/27/18 04:50 Urine Nitrite Negative (NEGATIVE) 01/27/18 04:50 Urine Bilirubin Negative (<2.0 mg/dL) 01/27/18 04:50 Urine Urobilinogen Negative mg/dL (0.2-1.0) 01/27/18 04:50 Ur Leukocyte Esterase 1+ (NEGATIVE) H 01/27/18 04:50 Urine WBC (Auto) 6 /hpf (3-5) 01/27/18 04:50 Urine RBC (Auto) 2 /hpf (0-3) 01/27/18 04:50 Ur Epithelial Cells Rare /HPF (FEW) 01/27/18 04:50 Urine Bacteria Rare /hpf (NONE SEEN) 01/27/18 04:50 Urine Mucus Rare 01/27/18 04:50 Blood Type A POSITIVE 01/27/18 09:50 Antibody Screen Negative 01/27/18 07:50 HIDA scan 01/27/18: No obstruction of common bile duct RUQ US 01/27/18: cholelithiasis, thickened gallbladder at 7mm, + edward sign EGD 01/30/18: Showed gastritis, no ulcer HOSPITAL COURSE: Date of Admission:01/27/18 Date of Discharge: 02/01/18 ASSESSMENT/PLAN: 72 yo F w/ hx of metastatic breast ca to lung (R lower lung lobectomy), (dx in 2007, s/p chemo, radiation, mastectomy in 2008 currently in remission), gall stones pancreatitis, and DM who presented with epigastric/RUQ abdominal pain. Pt was found to have acute cholelithiasis. Pt was initially considered for a stent considering a hx of metastatic breast cancer, but reevaluated and noted to be stable for lap anu. She was cleared by cardiology. She had a HIDA scan that revealed no obstruction of common bile duct and EGD that showed gastritis with no ulcer. Pt had laparoscopic cholecystectomy on (01/31/18). She was discharged on after tolerating PO diet and fluids. While on admission, Pt required minimal insulin coverage, her metastatic breast cancer remained in remission with no active issues noted. She was discharged on motrin/tylenol with instructions and to follow up with her PMD and the surgeon (Dr Arrington) in 1-2 weeks time Minutes to complete discharge: 38 Discharge Summary Reason For Visit: ACUTE GALLSTONES PANCREATITIS Current Active Problems Abdominal pain in female patient (Acute) Biliary colic (Acute) Cholecystitis, unspecified (Acute) Pre-operative cardiovascular examination (Acute) Condition: Improved - Instructions Diet, Activity, Other Instructions: Postoperative instructions: You had a laparoscopic cholecystectomy on 01/31/[address] Atif Arrington of [facility]. Activity: Resume your usual activities gradually, but no heavy exertion or lifting more than 10-15 pounds for 1 month. Remove dressings 48 hours after surgery; sticky tapes underneath will fall off by themselves. You may shower daily starting then, just pat the incision areas dry. Eat lightly at first, but advance to your usual diet as tolerated. Pain: For pain, you may use and alternate Tylenol (acetaminophen) and/or ibuprofen every 6 hours each as needed; this means that you can take one OR the other at 3-hour intervals. If you are prescribed a Tylenol/narcotic combination for severe pain, use it instead of plain Tylenol as needed and switch back when your pain starts decreasing. Do not take more than 4000mg of acetaminophen in a day. Take medications as prescribed or indicated on the labeling. Follow-up: Call Dr. Arrington' office at [phone] to make your postop appointment (Tuesday ~2 weeks after surgery). Clinic is held in the [facility] on the first floor of [facility]. Call the office if you have: * increasing pain not responsive to pain medication * fever of 101F or higher * vomiting * unusual or increasing bleeding or drainage from wounds * increasing redness or swelling at wound sites * inability to urinate Also, see your primary medical doctor within 1-2 weeks. Referrals: Atif Arrington MD [Staff Physician] - 2 Weeks (Postop-lap anu) Samy Carrasco MD [Staff Physician] - 2 Weeks (Postop for lap anu) Disposition: HOME - Home Medications Comprehensive Discharge Medication List: Ambulatory Orders Esomeprazole Magnesium [Nexium 24Hr] 20 mg PO DAILY #30 capsule. 01/19/18 This patient is new to me today: No Emergency Visit: Yes ED Registration Date: 01/27/18 Care time: The patient presented to the Emergency Department on the above date and was hospitalized for further evaluation of their emergent condition. Critical Care patient: No - Discharge Referral Referred to [facility] Med P.C.: No
[2018-02-01 08:43] LABS: BASO % 0.1 % (0-2.0); EOS % 0.1 % (0-4.5); HEMATOCRIT 35.9 % (32.4-45.2); LYMPH % 25.5 % (8-40); MCH 28.9 pg (25.7-33.7); MCHC 33.4 g/dl (32.0-36.0); MEAN CELL VOLUME 86.4 fl (80-96); MEAN PLT VOLUME 9.3 fl (7.5-11.1); MONO % 9.1 % (3.8-10.2); NEUT % 65.2 % (42.8-82.8); PLATELET COUNT 216 K/MM3 (134-434); RBC 4.16 M/mm3 (3.60-5.2); RDW 14.7 % (11.6-15.6); WHITE BLOOD COUNT 8.8 K/mm3 (4.0-10.0)
--- NOTE | 2018-02-01 09:02 | PN ---
Progress Note, Physician Chief Complaint: abdominal pain History of Present Illness: 72 yo PMH breast cancer metastatic to lung (dx in 2008, s/p chemo, radiation, mastectomy in 2009 currently in remission), constipation, DM on insulin, recent gallstone pancreatitis, presents with abdominal pain since the previous night. Her abdominal pain has improved since this admission. no complaints overnight. - Current Medication List Current Medications: Active Medications Acetaminophen (Tylenol -) 650 mg PO Q4H PRN PRN Reason: PAIN LEVEL 1 - 3 Acetaminophen (Tylenol -) 650 mg PO Q6H PRN PRN Reason: PAIN LEVEL 4 - 6 Benzocaine/Menthol (Cepacol Lozenge -) 1 each MM QID [facility] Fentanyl (Sublimaze Injection -) 25 mcg IVPUSH [id number] PRN PRN Reason: PAIN-PACU ORDER X 4 DOSES ONLY Last Admin: 01/31/18 16:20 Dose: 25 mcg Heparin Sodium (Porcine) (Heparin -) 5,000 unit SQ TID [facility] Last Admin: 02/01/18 06:22 Dose: 5,000 unit Lactated Ringer's (Lactated Ringers Solution) 1,000 ml in 1,000 mls @ 83 mls/ hr IV ASDIR [facility] Last Admin: 01/31/18 16:30 Dose: 0 mls Ibuprofen (Motrin -) 600 mg PO Q6H PRN PRN Reason: PAIN LEVEL 4 - 6 Insulin Aspart (Novolog Vial Sliding Scale -) 1 vial SQ ACHS [facility]; Protocol Last Admin: 02/01/18 06:22 Dose: Not Given Morphine Sulfate (Morphine Sulfate) 4 mg IVPUSH Q4H PRN PRN Reason: PAIN LEVEL 7 - 10 Last Admin: 02/01/18 01:59 Dose: 4 mg Pantoprazole Sodium (Protonix -) 40 mg PO DAILY [facility] Phenol/Menthol (Chloraseptic -) 1 spray MM Q6HPO PRN PRN Reason: SORE THROAT Polyethylene Glycol (Miralax (For Daily Use) -) 17 gm PO BID [facility] Last Admin: 01/31/18 22:11 Dose: Not Given Promethazine HCl (Phenergan Injection -) 12.5 mg IVPUSH Q4H PRN PRN Reason: NAUSEA AND/OR VOMITING - Objective Vital Signs: Vital Signs Temperature 99.4 F 02/01/18 06:00 Pulse Rate 73 02/01/18 06:00 Respiratory Rate 20 02/01/18 06:00 Blood Pressure 96/63 02/01/18 06:00 O2 Sat by Pulse Oximetry (%) 100 01/31/18 16:30 Vital Signs Period Temp Pulse Resp BP Sys/Hemphill Pulse Ox Last 24 Hr 97.4 F-100 F 56-840 10-22 95-150/58-94 94-100 Constitutional: Yes: Well Nourished, No Distress, Calm Eyes: Yes: Conjunctiva Clear, EOM Intact HENT: Yes: Atraumatic, Normocephalic Neck: Yes: Supple, Trachea Midline Cardiovascular: Yes: Regular Rate and Rhythm, S1, S2 Respiratory: Yes: Regular, CTA Bilaterally Gastrointestinal: Yes: Normal Bowel Sounds, Soft, Abdomen, Obese, Tenderness ...Rectal Exam: Yes: Deferred Genitourinary: No: CVA Tenderness - Left, CVA Tenderness - Right Breast(s): Yes: WNL Musculoskeletal: No: WNL, Muscle Pain, Muscle Weakness Extremities: No: Cool, Cyanosis Edema: No Peripheral Pulses WNL: Yes Integumentary: No: Jaundice, Rash Wound/Incision: Yes: Clean/Dry, Well Approximated, Dressing Dry and Intact Neurological: Yes: Alert, Oriented Psychiatric: Yes: Alert, Oriented Labs: CBC, BMP 02/01/18 07:09 INR, PTT INR 1.16 (0.82-1.09) H 01/30/18 07:35 Problem List - Problems (1) Cholecystitis, unspecified Assessment/Plan: 72yo female PMH DM metastatic breast CA (to lung) in remission, presenting with RUQ abdominal pain, history of gallstone pancreatitis with a plan for surgery but she did not followup. Chronic cholecystitis vs. biliary colic, POD#1 s/p laparosacopic cholecystectomy, . advance diet as tolerated antibiotics per ID f/u labs Adequate analgesia GI and DVT prophylaxis discharge planning Code(s): K81.9 - CHOLECYSTITIS, UNSPECIFIED (2) Abdominal pain in female patient Code(s): R10.9 - UNSPECIFIED ABDOMINAL PAIN (3) Acute gallstone pancreatitis Code(s): K85.1 - BILIARY ACUTE PANCREATITIS * DO NOT USE * (4) Borderline type 2 diabetes mellitus Code(s): R73.09 - OTHER ABNORMAL GLUCOSE (5) History of breast cancer Code(s): Z85.3 - PERSONAL HISTORY OF MALIGNANT NEOPLASM OF BREAST
[2018-02-01 09:14] LABS: CHLORIDE 103 mmol/L (98-107); GLUCOSE,RANDOM 88 mg/dL (74-106); POTASSIUM 3.8 mmol/L (3.5-5.1); SODIUM 141 mmol/L (136-145)
[2018-02-01] MEDS ORDERED: ONDANSETRON 4 MG/2 ML VIAL IVPUSH PRN (09:24)
[2018-02-01 09:29] LABS: ALBUMIN 2.9 g/dl (3.4-5.0); ALK PHOS 60 U/L (45-117); ANION GAP 10 (8-16); BILIRUBIN,TOTAL 0.4 mg/dL (0.2-1.0); BLOOD UREA NITROGEN 7 mg/dL (7-18); CALCIUM 8.5 mg/dL (8.5-10.1); CO2 28 mmol/L (21-32); CREATININE 0.5 mg/dL (0.55-1.02); MAGNESIUM 1.6 mg/dL (1.8-2.4); PHOSPHOROUS 3.3 mg/dL (2.5-4.9); SGOT/AST 31 U/L (15-37); SGPT/ALT 45 U/L (12-78); TOT PROT 6.2 g/dl (6.4-8.2)
[2018-02-01] MEDS ORDERED: MAGNESIUM SULF 50% (8.12 MEQ/2 ML-1 GM VIAL) IVPB ONE (09:48)
[2018-02-01] MEDS: PANTOPRAZOLE 40 MG TABLET (FP) PO SCH (09:49)
[2018-02-01] MEDS: BENZOCAINE/MENTH/CETYLPYRD CL 1 EACH LOZENGE MM SCH ×5 (09:49→21:18)
[2018-02-01] MEDS: POLYETHYLENE GLYCOL 3350 119 GM BTL PO SCH ×2 (09:50→21:18)
--- NOTE | 2018-02-01 12:54 | PN ---
Progress Note, Physician History of Present Illness: Tolerating clear liquid diet pod #1 lap cholecystectomy, mild incisional discomfort. - Current Medication List Current Medications: Active Medications Acetaminophen (Tylenol -) 650 mg PO Q4H PRN PRN Reason: PAIN LEVEL 1 - 3 Acetaminophen (Tylenol -) 650 mg PO Q6H PRN PRN Reason: PAIN LEVEL 4 - 6 Amino Acids (Prosource No Carb Liquid Pkt) 30 ml PO BID@0800,1730 [facility] Benzocaine/Menthol (Cepacol Lozenge -) 1 each MM QID [facility] Last Admin: 02/01/18 09:49 Dose: 1 each Fentanyl (Sublimaze Injection -) 25 mcg IVPUSH [id number] PRN PRN Reason: PAIN-PACU ORDER X 4 DOSES ONLY Last Admin: 01/31/18 16:20 Dose: 25 mcg Heparin Sodium (Porcine) (Heparin -) 5,000 unit SQ TID [facility] Last Admin: 02/01/18 06:22 Dose: 5,000 unit Lactated Ringer's (Lactated Ringers Solution) 1,000 ml in 1,000 mls @ 83 mls/ hr IV ASDIR [facility] Last Admin: 01/31/18 16:30 Dose: 0 mls Ibuprofen (Motrin -) 600 mg PO Q6H PRN PRN Reason: PAIN LEVEL 4 - 6 Insulin Aspart (Novolog Vial Sliding Scale -) 1 vial SQ ACHS [facility]; Protocol Last Admin: 02/01/18 12:28 Dose: Not Given Morphine Sulfate (Morphine Sulfate) 4 mg IVPUSH Q4H PRN PRN Reason: PAIN LEVEL 7 - 10 Last Admin: 02/01/18 01:59 Dose: 4 mg Ondansetron HCl (Zofran Injection) 4 mg IVPUSH Q6H PRN PRN Reason: NAUSEA Last Admin: 02/01/18 09:53 Dose: 4 mg Pantoprazole Sodium (Protonix -) 40 mg PO DAILY [facility] Last Admin: 02/01/18 09:49 Dose: 40 mg Phenol/Menthol (Chloraseptic -) 1 spray MM Q6HPO PRN PRN Reason: SORE THROAT Polyethylene Glycol (Miralax (For Daily Use) -) 17 gm PO BID [facility] Last Admin: 02/01/18 09:50 Dose: Not Given Promethazine HCl (Phenergan Injection -) 12.5 mg IVPUSH Q4H PRN PRN Reason: NAUSEA AND/OR VOMITING - Objective Vital Signs: Vital Signs Temperature 97.6 F 02/01/18 10:00 Pulse Rate 71 02/01/18 10:00 Respiratory Rate 20 02/01/18 10:00 Blood Pressure 116/71 02/01/18 10:00 O2 Sat by Pulse Oximetry (%) 100 01/31/18 16:30 Constitutional: Yes: No Distress, Calm Neck: Yes: Supple Cardiovascular: Yes: Regular Rate and Rhythm Respiratory: Yes: Regular, CTA Bilaterally Gastrointestinal: Yes: Normal Bowel Sounds, Soft Edema: No Labs: CBC, BMP 02/01/18 07:09 02/01/18 07:09 INR, PTT INR 1.16 (0.82-1.09) H 01/30/18 07:35 Problem List - Problems (1) Biliary colic Code(s): K80.50 - CALCULUS OF BILE DUCT W/O CHOLANGITIS OR CHOLECYST W/O OBST (2) Cholecystitis, unspecified Code(s): K81.9 - CHOLECYSTITIS, UNSPECIFIED (3) Borderline type 2 diabetes mellitus Code(s): R73.09 - OTHER ABNORMAL GLUCOSE (4) History of breast cancer Code(s): Z85.3 - PERSONAL HISTORY OF MALIGNANT NEOPLASM OF BREAST (5) S/P laparoscopic cholecystectomy Code(s): Z90.49 - ACQUIRED ABSENCE OF OTHER SPECIFIED PARTS OF DIGESTIVE TRACT Assessment/Plan 1. POD#1 s/p laparosacopic cholecystectomy for biliary colic vs chronic cholecystitis 2. Metastatic breast CA (to lung) in remission 3. Mild gastritis P:1. Advance diet as tolerated 2. Continue empiric abx course for biliary will per ID 3. Analgesia as needed, DVT and GI prophylaxis, d/c planning
--- NOTE | 2018-02-01 13:23 | PN ---
Teaching Attending Note Name of Resident: Consuelo Najera ATTENDING PHYSICIAN STATEMENT I saw and evaluated the patient. I reviewed the resident's note and discussed the case with the resident. I agree with the resident's findings and plan as documented. SUBJECTIVE:was nauseated while trying to eat breakfast. was only able to take a few bites. denies Cp, SOB< fever, chills, V/C/D OBJECTIVE: Last Vital Signs Temp Pulse Resp BP Pulse Ox 97.6 F 71 20 116/71 100 02/01/18 10:02/01/18 10:02/01/18 10:02/01/18 10:01/31/18 16:30 General NAD CV S1 S2 RRR no murmur/rub/gallop Lungs CTA anteriorly Abdomen soft, NT/ND. bandages x3 c/d/i. ASSESSMENT AND PLAN: 72 yo F with PMHx of metastatic breast ca to lung (dx in 2007, s/p chemo, radiation, mastectomy in 2008 currently in remission) and DM, admitted with abdominal pain, nausea, vomiting. 1. Biliary colic- s/p laprascopic cholecytitis 01/31. nausea with breakfast will give some zofran and re-assess after lunch. if able to tolerate will d/c home. will need to f/u with surgery next week. 2. DM- controlled. unclear if she takes medications at home. has not required any coverage here. cont diet control 3. Breast cancer s/p resection 4. DVT ppx- hep sq 5. d/c home pending tolerating diet
--- NOTE | 2018-02-01 13:35 | PN ---
Progress Note, Physician History of Present Illness: stable no new issues post op doing well - Current Medication List Current Medications: Active Medications Acetaminophen (Tylenol -) 650 mg PO Q4H PRN PRN Reason: PAIN LEVEL 1 - 3 Acetaminophen (Tylenol -) 650 mg PO Q6H PRN PRN Reason: PAIN LEVEL 4 - 6 Amino Acids (Prosource No Carb Liquid Pkt) 30 ml PO BID@0800,1730 [facility] Benzocaine/Menthol (Cepacol Lozenge -) 1 each MM QID [facility] Last Admin: 02/01/18 09:49 Dose: 1 each Fentanyl (Sublimaze Injection -) 25 mcg IVPUSH [id number] PRN PRN Reason: PAIN-PACU ORDER X 4 DOSES ONLY Last Admin: 01/31/18 16:20 Dose: 25 mcg Heparin Sodium (Porcine) (Heparin -) 5,000 unit SQ TID [facility] Last Admin: 02/01/18 06:22 Dose: 5,000 unit Lactated Ringer's (Lactated Ringers Solution) 1,000 ml in 1,000 mls @ 83 mls/ hr IV ASDIR [facility] Last Admin: 01/31/18 16:30 Dose: 0 mls Ibuprofen (Motrin -) 600 mg PO Q6H PRN PRN Reason: PAIN LEVEL 4 - 6 Insulin Aspart (Novolog Vial Sliding Scale -) 1 vial SQ ACHS [facility]; Protocol Last Admin: 02/01/18 12:28 Dose: Not Given Morphine Sulfate (Morphine Sulfate) 4 mg IVPUSH Q4H PRN PRN Reason: PAIN LEVEL 7 - 10 Last Admin: 02/01/18 01:59 Dose: 4 mg Ondansetron HCl (Zofran Injection) 4 mg IVPUSH Q6H PRN PRN Reason: NAUSEA Last Admin: 02/01/18 09:53 Dose: 4 mg Pantoprazole Sodium (Protonix -) 40 mg PO DAILY [facility] Last Admin: 02/01/18 09:49 Dose: 40 mg Phenol/Menthol (Chloraseptic -) 1 spray MM Q6HPO PRN PRN Reason: SORE THROAT Polyethylene Glycol (Miralax (For Daily Use) -) 17 gm PO BID [facility] Last Admin: 02/01/18 09:50 Dose: Not Given Promethazine HCl (Phenergan Injection -) 12.5 mg IVPUSH Q4H PRN PRN Reason: NAUSEA AND/OR VOMITING - Objective Vital Signs: Vital Signs Temperature 97.6 F 02/01/18 10:00 Pulse Rate 71 02/01/18 10:00 Respiratory Rate 20 02/01/18 10:00 Blood Pressure 116/71 02/01/18 10:00 O2 Sat by Pulse Oximetry (%) 100 01/31/18 16:30 Constitutional: Yes: No Distress, Calm Cardiovascular: Yes: Regular Rate and Rhythm Respiratory: Yes: Regular, CTA Bilaterally Gastrointestinal: Yes: Normal Bowel Sounds, Soft Neurological: Yes: Alert, Oriented Psychiatric: Yes: Alert, Oriented Labs: CBC, BMP 02/01/18 07:09 02/01/18 07:09 INR, PTT INR 1.16 (0.82-1.09) H 01/30/18 07:35 Assessment/Plan Problem List - Problems (1) Cholecystitis, unspecified Code(s): K81.9 - CHOLECYSTITIS, UNSPECIFIED (2) Abdominal pain in female patient Code(s): R10.9 - UNSPECIFIED ABDOMINAL PAIN (3) Acute gallstone pancreatitis Code(s): K85.1 - BILIARY ACUTE PANCREATITIS * DO NOT USE * (4) Borderline type 2 diabetes mellitus Code(s): R73.09 - OTHER ABNORMAL GLUCOSE (5) History of breast cancer Code(s): Z85.3 - PERSONAL HISTORY OF MALIGNANT NEOPLASM OF BREAST plan stable doing well
[2018-02-01] MEDS ORDERED: KETOROLAC TROMETHAMINE 30 MG/1 ML VIAL IVPUSH ONE (14:45)
[2018-02-01] MEDS ORDERED: ONDANSETRON *ODT* 4 MG TABLET SL PRN (14:56)
[2018-02-01] MEDS: AMINO ACIDS/PROTEIN HYDROLYS 30 ML LIQUID.PKT PO SCH (17:42)
--- NOTE | 2018-02-01 21:21 | PN ---
Physical Exam: SUBJECTIVE: Patient seen and examined. No fevers overnight. Got pain meds once overnight. Yet to pass flatus by am. Commenced PO intake. C/O of sore throat. OBJECTIVE: Vital Signs Period Temp Pulse Resp BP Sys/Hemphill Pulse Ox Last 24 Hr 97.6 F-99.4 F 70-87 18-20 95-131/58-71 95 Vital Signs Temp 98.8 F 02/01/18 16:30 Pulse 70 02/01/18 16:30 Resp 20 02/01/18 16:30 BP 95/62 02/01/18 16:30 Pulse Ox 95 02/01/18 09:00 Intake & Output 01/31/18 02/01/18 02/01/18 23:59 11:59 23:59 Intake Total 582 1110 1000 Output Total 2415 Balance -1833 1110 1000 Intake: IV 550 820 2873 LACTATED RINGERS SOLUTION 332 660 1,000 ml In 1,000 ml @ 83 mls/hr IV ASDIR JEREMIAS Rx #:[id number] LACTATED RINGERS SOLUTION 1000 1,000 ml In 1,000 ml @ 83 mls/hr IV ASDIR JEREMIAS Rx #:[id number] Oral 350 TPN/PPN 100 Output: Urine 2400 Estimated Blood Loss 15 Other: Voiding Method Toilet Toilet # Unmeasured Voids Void 1 1 Bowel Movement No No GENERAL: The patient is awake, alert, and fully oriented, in no acute distress. LUNGS: reduced Breath sounds R lung base, clear to auscultation bilaterally HEART: Regular rate and rhythm, S1, S2 without murmur ABDOMEN: Periumbilical dressing, infra umbilical dressing and [address], clean dry. Soft, appropriately tender, nondistended, hypoactive bowel sounds, EXTREMITIES: 2+ pulses, warm, well-perfused, no edema. NEUROLOGICAL: AAOx3, no facial droop, normal speech, able to move all limbs Laboratory Results - last 24 hr 02/01/18 02/01/18 07:09 07:09 WBC 8.8 D RBC 4.16 Hgb 12.0 Hct 35.9 MCV 86.4 MCH 28.9 MCHC 33.4 RDW 14.7 Plt Count 216 MPV 9.3 Absolute Neuts (auto) 5.7 Neutrophils % 65.2 D Lymphocytes % 25.5 D Monocytes % 9.1 Eosinophils % 0.1 D Basophils % 0.1 Nucleated RBC % 0 Sodium 141 Potassium 3.8 Chloride 103 Carbon Dioxide 28 Anion Gap 10 BUN 7 Creatinine 0.5 L Creat Clearance w eGFR > 60 Random Glucose 88 Calcium 8.5 Phosphorus 3.3 Magnesium 1.6 L Total Bilirubin 0.4 D AST 31 ALT 45 Alkaline Phosphatase 60 Total Protein 6.2 L Albumin 2.9 L Current medications Acetaminophen (Tylenol -) 650 mg PO Q4H PRN PRN Reason: PAIN LEVEL 1 - 3 Acetaminophen (Tylenol -) 650 mg PO Q6H PRN PRN Reason: PAIN LEVEL 4 - 6 Amino Acids (Prosource No Carb Liquid Pkt) 30 ml PO BID@0800,1730 [facility] Last Admin: 02/01/18 17:42 Dose: 30 ml Benzocaine/Menthol (Cepacol Lozenge -) 1 each MM QID [facility] Last Admin: 02/01/18 21:18 Dose: 1 each Fentanyl (Sublimaze Injection -) 25 mcg IVPUSH [id number] PRN PRN Reason: PAIN-PACU ORDER X 4 DOSES ONLY Last Admin: 01/31/18 16:20 Dose: 25 mcg Heparin Sodium (Porcine) (Heparin -) 5,000 unit SQ TID [facility] Last Admin: 02/01/18 21:17 Dose: 5,000 unit Ibuprofen (Motrin -) 600 mg PO Q6H PRN PRN Reason: PAIN LEVEL 4 - 6 Insulin Aspart (Novolog Vial Sliding Scale -) 1 vial SQ [facility]; Protocol Last Admin: 02/01/18 21:18 Dose: Not Given Ondansetron HCl (Zofran Injection) 4 mg IVPUSH Q6H PRN PRN Reason: NAUSEA Last Admin: 02/01/18 09:53 Dose: 4 mg Ondansetron HCl (Zofran Odt -) 8 mg SL Q6H PRN PRN Reason: NAUSEA AND/OR VOMITING Pantoprazole Sodium (Protonix -) 40 mg PO DAILY [facility] Last Admin: 02/01/18 09:49 Dose: 40 mg Phenol/Menthol (Chloraseptic -) 1 spray MM Q6HPO PRN PRN Reason: SORE THROAT Polyethylene Glycol (Miralax (For Daily Use) -) 17 gm PO BID [facility] Last Admin: 02/01/18 21:18 Dose: Not Given Promethazine HCl (Phenergan Injection -) 12.5 mg IVPUSH Q4H PRN PRN Reason: NAUSEA AND/OR VOMITING Ambulatory Orders Esomeprazole Magnesium [Nexium 24Hr] 20 mg PO DAILY #30 capsule. 01/19/18 Acetaminophen [Tylenol .Regular Strength -] 650 mg PO Q4H PRN tablet 02/01/18 Ibuprofen [Motrin -] 600 mg PO Q6H PRN tablet 02/01/18 Phenol [Chloraseptic -] 1 spray MM Q6HPO PRN #1 bottle 02/01/18 HIDA scan: No obstruction of common bile duct RUQ US: cholelithiasis, thickened gallbladder at 7mm, + edward sign EGD 01/30/18: Showed gastritis, no ulcer ASSESSMENT/PLAN: 72F w/ hx of metastatic breast ca to lung (dx in 2007, s/p chemo, radiation, mastectomy in 2008 currently in remission) and DM who presents with epigastric/ RUQ abdominal pain #cholelithiasis POD1 lapchole (01/31) zosyn 3.375mg stopped yesterday pain control with iv morphine, motrin- Pt was not aware to ask for pain meds, D/W her and offered ketorolac 30mg stat Plasmalyte@ 83/hr- d/c to observe adequate PO intake promethazine 12.5mg Q4H PRN Pt noted to be nauseous- received iv zofran in am, to follow up tolerating breakfast, lunch SL zofran 4mg #DM DM- diet controlled BGM ACHS, ISS- has not needed much coverage #metastatic breast cancer in remission s/p R lobectomy not active issue last oncology appointment was in march of 2017. follows at [facility] #[facility] Plamalyte@ 83/hr-D/C Monitor electrolytes and replete as needed #ppx Pantoprazole on board heparin sq #Dispo: Pt was prepped for D/C but was in pain and dizzy Observe after diner off fluids for likely D/C in am If hypotensive or symptomatic, continue iv fluids Visit type - Emergency Visit Emergency Visit: Yes ED Registration Date: 01/27/18 Care time: The patient presented to the Emergency Department on the above date and was hospitalized for further evaluation of their emergent condition. - New Patient This patient is new to me today: No - Critical Care Critical Care patient: No - Discharge Referral Referred to [facility] Med P.C.: No
[2018-02-01 22:40] VITALS: PULSE 90
[2018-02-02] MEDS: AMINO ACIDS/PROTEIN HYDROLYS 30 ML LIQUID.PKT PO SCH (09:19)
[2018-02-02] MEDS: POLYETHYLENE GLYCOL 3350 119 GM BTL PO SCH (09:19)
[2018-02-02] MEDS: PANTOPRAZOLE 40 MG TABLET (FP) PO SCH (09:28)
[2018-02-02] MEDS: BENZOCAINE/MENTH/CETYLPYRD CL 1 EACH LOZENGE MM SCH (09:28)
[2018-02-02 11:08] VITALS: BP 123/76; TEMP 98.8
--- NOTE | 2018-02-02 11:11 | PN ---
Progress Note, Physician Chief Complaint: abdominal pain History of Present Illness: 72 yo PMH breast cancer metastatic to lung (dx in 2008, s/p chemo, radiation, mastectomy in 2009 currently in remission), constipation, DM on insulin, recent gallstone pancreatitis, presents with abdominal pain since the previous night. Her abdominal pain has improved since this admission. no complaints overnight. - Current Medication List Current Medications: Active Medications Acetaminophen (Tylenol -) 650 mg PO Q4H PRN PRN Reason: PAIN LEVEL 1 - 3 Acetaminophen (Tylenol -) 650 mg PO Q6H PRN PRN Reason: PAIN LEVEL 4 - 6 Amino Acids (Prosource No Carb Liquid Pkt) 30 ml PO BID@0800,1730 [facility] Last Admin: 02/02/18 09:19 Dose: Not Given Benzocaine/Menthol (Cepacol Lozenge -) 1 each MM QID [facility] Last Admin: 02/02/18 09:28 Dose: 1 each Fentanyl (Sublimaze Injection -) 25 mcg IVPUSH [id number] PRN PRN Reason: PAIN-PACU ORDER X 4 DOSES ONLY Last Admin: 01/31/18 16:20 Dose: 25 mcg Heparin Sodium (Porcine) (Heparin -) 5,000 unit SQ TID [facility] Last Admin: 02/01/18 21:17 Dose: 5,000 unit Ibuprofen (Motrin -) 600 mg PO Q6H PRN PRN Reason: PAIN LEVEL 4 - 6 Insulin Aspart (Novolog Vial Sliding Scale -) 1 vial SQ ACHS [facility]; Protocol Last Admin: 02/01/18 21:18 Dose: Not Given Ondansetron HCl (Zofran Injection) 4 mg IVPUSH Q6H PRN PRN Reason: NAUSEA Last Admin: 02/01/18 09:53 Dose: 4 mg Ondansetron HCl (Zofran Odt -) 8 mg SL Q6H PRN PRN Reason: NAUSEA AND/OR VOMITING Pantoprazole Sodium (Protonix -) 40 mg PO DAILY [facility] Last Admin: 02/02/18 09:28 Dose: 40 mg Phenol/Menthol (Chloraseptic -) 1 spray MM Q6HPO PRN PRN Reason: SORE THROAT Polyethylene Glycol (Miralax (For Daily Use) -) 17 gm PO BID [facility] Last Admin: 02/02/18 09:19 Dose: Not Given Promethazine HCl (Phenergan Injection -) 12.5 mg IVPUSH Q4H PRN PRN Reason: NAUSEA AND/OR VOMITING - Objective Vital Signs: Vital Signs Temperature 98.8 F 02/02/18 08:00 Pulse Rate 90 02/01/18 20:00 Respiratory Rate 18 02/02/18 09:00 Blood Pressure 123/76 02/02/18 08:00 O2 Sat by Pulse Oximetry (%) 95 02/02/18 09:00 Vital Signs Period Temp Pulse Resp BP Sys/Hemphill Pulse Ox Last 24 Hr 97.6 F-98.8 F 70-90 18-20 95-123/58-76 95-95 Constitutional: Yes: Well Nourished, No Distress, Calm Eyes: Yes: Conjunctiva Clear, EOM Intact HENT: Yes: Atraumatic, Normocephalic Neck: Yes: Supple, Trachea Midline Cardiovascular: Yes: Regular Rate and Rhythm, S1, S2 Respiratory: Yes: Regular, CTA Bilaterally Gastrointestinal: Yes: Normal Bowel Sounds, Soft, Abdomen, Obese. No: Tenderness Wound/Incision: Yes: Clean/Dry, Well Approximated, Dressing Dry and Intact Labs: CBC, BMP 02/01/18 07:09 02/01/18 07:09 INR, PTT INR 1.16 (0.82-1.09) H 01/30/18 07:35 Problem List - Problems (1) Cholecystitis, unspecified Assessment/Plan: 72yo female PMH DM metastatic breast CA (to lung) in remission, presenting with RUQ abdominal pain, history of gallstone pancreatitis with a plan for surgery but she did not followup. Chronic cholecystitis vs. biliary colic, POD#2 s/p laparosacopic cholecystectomy, . advance diet as tolerated antibiotics per ID f/u labs Adequate analgesia GI and DVT prophylaxis discharge planning Code(s): K81.9 - CHOLECYSTITIS, UNSPECIFIED (2) Abdominal pain in female patient Code(s): R10.9 - UNSPECIFIED ABDOMINAL PAIN (3) Acute gallstone pancreatitis Code(s): K85.1 - BILIARY ACUTE PANCREATITIS * DO NOT USE * (4) Borderline type 2 diabetes mellitus Code(s): R73.09 - OTHER ABNORMAL GLUCOSE (5) History of breast cancer Code(s): Z85.3 - PERSONAL HISTORY OF MALIGNANT NEOPLASM OF BREAST
--- NOTE | 2018-02-02 13:22 | PN ---
Teaching Attending Note Name of Resident: Consuelo Najera ATTENDING PHYSICIAN STATEMENT I saw and evaluated the patient. I reviewed the resident's note and discussed the case with the resident. I agree with the resident's findings and plan as documented. SUBJECTIVE:improved. was able to tolerate dinner and breakfast today. some minor pain that is controlled. denies CP, SOB, fever, chills, N/V/C/D OBJECTIVE: Last Vital Signs Temp Pulse Resp BP Pulse Ox 98.8 F 90 18 123/76 95 02/02/18 08:00 02/01/18 20:00 02/02/18 09:00 02/02/18 08:00 02/02/18 09:00 General NAD Abdomen soft, NT/ND. bandages x3 c/d/i. ASSESSMENT AND PLAN: 72 yo F with PMHx of metastatic breast ca to lung (dx in 2007, s/p chemo, radiation, mastectomy in 2008 currently in remission) and DM, admitted with abdominal pain, nausea, vomiting. 1. Biliary colic- s/p laprascopic cholecytitis 01/31. nausea has resolved. tolerating diet. will need to f/u with surgery next week. 2. DM- controlled. unclear if she takes medications at home. has not required any coverage here. cont diet control 3. Breast cancer s/p resection 4. DVT ppx- hep sq 5. d/c home
--- NOTE | 2018-02-02 16:19 | PATH ---
Surgical Pathology Report Patient Name: BO CONCEPCION Med. Rec. #: [id number] /Age/Gender: 1945 (Age: 72) / F Account: [id number] Location: [facility] MED/SURG Taken: 01/31/2018 Received: 02/01/2018 Reported: 02/02/2018 Physicians: Ariane Romo M.D. Specimen(s) Received GALLBLADDER AND STONES Clinical History Acute gallstones pancreatitis Final Diagnosis GALLBLADDER AND STONES, REMOVAL: CHRONIC CHOLECYSTITIS AND CHOLESTEROLOSIS. CHOLELITHIASIS. Electronically Signed Xavier Britt M.D. Gross Description Received in formalin, labeled "gallbladder," is a 8 x 3 x 1.5 cm. gallbladder with a 0.5 cm. in length portion of cystic duct attached. The outer surface varies from smooth to shaggy. The lumen contains viscid green bile and a round yellow cholelith. The mucosa is velvety and bile-stained. The wall of the gallbladder measures 0.2 cm. in thickness. Production Welding Supervisor sections are submitted in one cassette.
== END 2018-02-02 11:18 | disposition home or self-care (01) | DRG 419 ==
LOC: JER 23:33 → JERBED 01-27 04:25 → J8W 01-27 06:42
PROVIDERS: ADMIT Internal Medicine; ATTEND Internal Medicine
PROC: 0DD68ZX Extraction of Stomach, Via Natural or Artificial Opening Endoscopic, Diagnostic (ICD-10-PCS; 2018-01-30)
PROC: 0FT44ZZ Resection of Gallbladder, Percutaneous Endoscopic Approach (ICD-10-PCS; principal; 2018-01-31 13:00)
DX: K80.10 Calculus of gallbladder with chronic cholecystitis without obstruction (principal); E11.9 Type 2 diabetes mellitus without complications; K29.70 Gastritis, unspecified, without bleeding; Z85.3 Personal history of malignant neoplasm of breast
CPT/HCPCS: 36415; 71045-TC-FY; 74177-TC; 76705-TC; 78226-TC; 80048; 80053; 81003; 81015; 82550; 82962; 83690; 83735; 84100; 84484; 85025; 85610; 85730; 86850; 86900; 86901; 88304-TC; 88305-TC; 93005; 93010; 94010; 94760; 99282-25; A9537; J1644; J7030

== ENCOUNTER 2018-02-16 12:29 | Emergency (ER) | payer OTHER, MEDICARE ==
[2018-02-16 12:40] VITALS: BP 130/71; PULSE 68; TEMP 98; BMI 32.5
[2018-02-16] MEDS ORDERED: KETOROLAC TROMETHAMINE 60 MG/2 ML VIAL ONE (13:09)
--- NOTE | 2018-02-16 13:10 | PDOC ---
History of Present Illness - General Chief Complaint: Toothache Stated Complaint: TOOTHACHE Time Seen by Provider: 02/16/18 12:56 History Source: Patient Exam Limitations: No Limitations - History of Present Illness Timing/Duration: unsure Severity: moderate Associated Symptoms: reports: denies symptoms. denies: fever/chills, headaches Past History - Travel Traveled outside of the country in the last 30 days: No Close contact w/someone who was outside of country & ill: No - Past Medical History Allergies/Adverse Reactions: Allergies Allergy/AdvReac Type Severity Reaction Status Date / Time No Known Allergies Allergy Verified 02/16/18 12:37 Home Medications: Ambulatory Orders Amoxicillin - [Amoxicillin 500mg Capsule -] 500 mg PO TID #21 capsule 02/16/18 Oxycodone HCl/Acetaminophen [Percocet 5-325 mg Tablet -] 1 - 2 tab PO Q4H PRN # 10 tablet MDD 4 02/16/18 Cancer: Yes (BREAST AND LUNG DX 2002 right mastectomy) COPD: No - Immunization History Immunization Up to Date: No - Suicide/Smoking/Psychosocial Hx Smoking History: Never smoked Have you smoked in the past 12 months: No Information on smoking cessation initiated: No Hx Alcohol Use: No Drug/Substance Use Hx: No Substance Use Type: None Hx Substance Use Treatment: No Review of Systems - Review of Systems Able to Perform ROS?: Yes Is the patient limited Khmer proficient: Yes Constitutional: Yes: Symptoms Reported, See HPI, Malaise. No: Fever HEENTM: Yes: Symptoms Reported, See HPI, Throat Pain, Mouth Pain, Dental Problems Respiratory: No: See HPI Integumentary: Yes: See HPI. No: Symptoms Reported All Other Systems: Reviewed and Negative *Physical Exam - Vital Signs Last Vital Signs Temp Pulse Resp BP Pulse Ox 98.0 F 68 16 130/71 100 02/16/18 12:38 02/16/18 12:38 02/16/18 12:38 02/16/18 12:38 02/16/18 12:38 - Physical Exam General Appearance: Yes: Appropriately Dressed, Apparent Distress, Moderate Distress HEENT: positive: JACKELYN, TMs Normal, Pharynx Normal, Other (tender gingival surface to upper right gum and gingival surfaces. No fluctuance, no obvious abscess, no erythema to the gums. Range of motion is difficult secondary to this dental pain. No obvious fracture or decay noted in dentition.). negative: Normal ENT Inspection, Rhinorrhea Neck: positive: Supple, Lymphadenopathy (R), Lymphadenopathy (L). negative: Tender Respiratory/Chest: positive: Lungs Clear, Normal Breath Sounds Gastrointestinal/Abdominal: positive: Soft Extremity: positive: Normal Capillary Refill, Normal Inspection Integumentary: positive: Normal Color, Warm, Pale Neurologic: positive: sales advisory manager II-XII NML intact, Fully Oriented, Alert, Normal Mood/ Affect, Normal Response, Motor Strength 5/5 *DC/Admit/Observation/Transfer Diagnosis at time of Disposition: Toothache - Discharge Dispostion Disposition: HOME Condition at time of disposition: Stable Decision to Admit order: No - Referrals - Patient Instructions Printed Discharge Instructions: DI for Dental Pain Additional Instructions: Rest, drink lots of fluids: Teas, water, soups Saltwater gargles/ keep mouth clean and rinse after each meal May use wet teabag for pain relief to area Avoid hard chewing foods, stick to ice cream, Jell-O, yogurt etc. Tylenol or Motrin for fever and pain Complete all medication as prescribed Seek dental appointment as soon as possible for evaluation of dental injury/pain Followup with private physician in one to 2 days as needed Return to emergency department for worsened symptoms, fevers, swelling to face or worsened pain - Post Discharge Activity
== END 2018-02-16 13:20 | disposition home or self-care (01) ==
LOC: JERFT 12:29
DX: K08.89 Other specified disorders of teeth and supporting structures (principal); Z85.3 Personal history of malignant neoplasm of breast; Z85.118 Personal history of other malignant neoplasm of bronchus and lung; Z90.11 Acquired absence of right breast and nipple
CPT/HCPCS: 99281-25